=== PATIENT | male | born 1985 | race American Indian/Alaskan Native ===

== ENCOUNTER 2016-06-07 09:19 | Inpatient (IN) | payer MEDICAID ==
[2016-06-07] MEDS ORDERED: MORPHINE IV ONE (10:48)
--- NOTE | 2016-06-07 10:54 | Emergency Department Report ---
HPI - General Chief Complaint: Extremity Problem,Nontraumatic Time Seen by Provider: 06/07/16 10:13 - HPI HPI: 30-year-old Afro-I[place]ic male presents emergency department from home by EMS with complaint of increased swelling and pain to the right lower extremity where he has lymphedema. This is a chronic issue for the patient since he had multiple traumas and surgeries on that leg years ago. He also has a past medical history of borderline diabetes, hypertension. No recent travel or sick contacts at home. He denies any history of ND CVA, PE/DVT. He has not taken anything for symptoms prior to presentation. His primary care doctor is a Dr. Baron. Denies any fever, nausea, vomiting, chest pain, shortness of breath. ED Past Medical Hx - Past Medical History Previous Medical History?: Yes Hx Hypertension: Yes Hx CVA: No Hx Heart Attack/AMI: No Hx Congestive Heart Failure: No Hx Diabetes: Yes Hx Deep Vein Thrombosis: No Hx Pulmonary Embolism: No Hx GERD: No Hx Liver Disease: No Hx Renal Disease: No Hx Sickle Cell Disease: No Hx Arthritis: No Hx Headaches / Migraines: No Hx Seizures: No Hx Kidney Stones: No Hx Psychiatric Treatment: No Hx Asthma: No Hx COPD: No Hx Tuberculosis: No Hx Dementia: No Hx HIV: No Additional medical history: Heart murmur. LYMPHEDEMA. OBESITY - Surgical History Past Surgical History?: Yes Hx Coronary Stent: No Hx Open Heart Surgery: No Hx Internal Defibrillator: No Hx Cholecystectomy: No Hx Appendectomy: No Hx Breast Surgery: No Additional Surgical History: RIGHT LEG SURGERY - Social History Smoking Status: Current Every Day Smoker Substance Use Type: None - Medications Home Medications: Home Medications Medication Instructions Recorded Confirmed Last Taken Type ALPRAZolam [Xanax TAB] 1 mg PO BID PRN 05/25/15 06/07/16 05/15/16 History ED Review of Systems ROS: Stated complaint: R LEG PAIN/SWELLING Other details as noted in HPI Comment: All other systems reviewed and negative Constitutional: denies: chills, fever Eyes: denies: eye pain, eye discharge, vision change ENT: denies: ear pain, throat pain Respiratory: denies: cough, shortness of breath, wheezing Cardiovascular: edema. denies: chest pain, palpitations Gastrointestinal: denies: abdominal pain, nausea, diarrhea Genitourinary: denies: urgency, dysuria Musculoskeletal: arthralgia, myalgia, other (lymphedema) Skin: denies: rash, lesions Neurological: denies: headache, weakness, paresthesias Physical Exam - Physical Exam Vital Signs: Vital Signs 06/07/16 06/07/16 09:34 10:17 Temperature 98.0 F Pulse Rate 85 Respiratory 20 20 Rate Blood Pressure 149/79 [Left] O2 Sat by Pulse 98 Oximetry Physical Exam: GENERAL: The patient is well-developed well-nourished. HEENT: Normocephalic. Atraumatic. Extraocular motions are intact. Patient has moist mucous membranes. Pupils equal reactive to light bilaterally. NECK: Supple. Trachea is midline. CHEST/LUNGS: Clear to auscultation. There is no respiratory distress noted. HEART/CARDIOVASCULAR: Regular. There is no tachycardia. There is no gallop rub or murmur. ABDOMEN: Abdomen is soft, nontender. Patient has normal bowel sounds. There is no abdominal distention. SKIN: Skin is warm and dry. There is significant/severe right lower extremity lymphedema but there is also erythema and warmth to the middle half starting mid thigh and going to mid tib-fib. No bleeding, weeping or drainage. Concerning for cellulitis. NEURO: The patient is awake, alert, and oriented. The patient is cooperative. The patient has no focal neurologic deficits. The patient has normal speech. MUSCULOSKELETAL: Patient has tenderness to palpation along the entire right lower extremity. There is significant to severe lymphedema. There is no evidence of acute injury. ED Course Vital Signs 06/07/16 06/07/16 09:34 10:17 Temperature 98.0 F Pulse Rate 85 Respiratory 20 20 Rate Blood Pressure 149/79 [Left] O2 Sat by Pulse 98 Oximetry ED Medical Decision Making - Lab Data Result diagrams: 06/07/16 13:35 06/07/16 11:07 - Radiology Data Radiology results: report reviewed Right lower extremity venous Doppler is severely limited secondary to his lymphedema but otherwise does not show any acute DVT. - Medical Decision Making 30-year-old male presents with a few days of severe right lower extremity pain and worsening of his chronic lymphedema. Patient does have severe lymphedema to the right lower extremity but there is also area of erythema and warmth concerning for cellulitis. A venous Doppler was done to rule out a DVT and while it was a limited examination there was no obvious acute DVT found. Patient has a leukocytosis of about 16,000. No current fever. Patient says he starting to feel febrile-like symptoms. Blood cultures were obtained and the patient was started on vancomycin. Patient be admitted to hospital for cellulitis and accepted for admission by the hospitalist, Dr. Nice. - Differential Diagnosis cellulitis, venous stasis, lymphangitis, DVT Critical Care Time: No Critical care attestation.: If time is entered above; I have spent that time in minutes in the direct care of this critically ill patient, excluding procedure time. ED Disposition Clinical Impression: Lymphedema, Hyperglycemia Cellulitis Qualifiers: Site of cellulitis: extremity Site of cellulitis of extremity: lower extremity Laterality: right Qualified Code(s): L03.115 - Cellulitis of right lower limb Disposition: OP ADMITTED IP TO THIS HOSP Is pt being admited?: Yes Condition: Stable Time of Disposition: 19:07
[2016-06-07 11:32] LABS: Anion Gap 25 mmol/L; Blood Urea Nitrogen 5 mg/dL (9-20); Calcium 8.8 mg/dL (8.4-10.2); Carbon Dioxide 19 mmol/L (22-30); Chloride 94.1 mmol/L (98-107); Glucose 244 mg/dL (75-100); Potassium 3.8 mmol/L (3.6-5.0); Sodium 134 mmol/L (137-145)
[2016-06-07] MEDS ORDERED: DILAUDID IV ONE ×2 (12:39→15:36)
[2016-06-07] MEDS ORDERED: VANCOMYCIN/NS 1 GM/250 ML 1 GM/250 ML BAG IV ONE (13:20)
[2016-06-07 13:23] LABS: Hematocrit TNR % (35.5-45.6); Hemoglobin TNR gm/dl (11.8-15.2); Mean Corpuscular Volume TNR fl (84-94); Red Blood Count TNR M/mm3 (3.65-5.03)
[2016-06-07 13:24] LABS: Mean Corpuscular HGB Conc TNR % (32-34); Mean Corpuscular Hemoglobin TNR pg (28-32); Platelet Count TNR K/mm3 (140-440); Red Cell Distribution Width TNR % (13.2-15.2)
[2016-06-07 13:25] LABS: White Blood Count TNR K/mm3 (4.5-11.0)
[2016-06-07 13:27] LABS: Mean Platelet Volume TNR fl (6-12)
[2016-06-07 13:28] LABS: Basophils % (Auto) TNR % (0.0-1.8); Eosinophils % (Auto) TNR % (0.0-4.3)
[2016-06-07 13:32] LABS: Total Cells Counted Percent TNR
[2016-06-07 13:33] LABS: Basophils % (Manual) TNR % (0.0-1.8); Blastocytes % (Manual) TNR %; Chediak-Higashi Inclusions TNR; Eosinophils % (Manual) TNR % (0.0-4.3); Hypersegmented Polys TNR
[2016-06-07 13:34] LABS: Anisocytosis TNR; Basophilic Stippling TNR; EDTA Platelet Clumps TNR; Giant Platelets TNR; Hypersegmented Neutrophils TNR; Hypochromasia TNR; Large Platelets TNR; Microcytosis TNR; Nucleated Red Blood Cells TNR % (0.0-0.9); Platelet Clumps TNR; Platelet Estimate TNR; Platelet Morphology TNR; Poikilocytosis TNR; Polychromasia TNR; RBC Morphology TNR; Smudge Cells TNR
[2016-06-07 13:35] LABS: Cabot Rings TNR; Howell-Jolly Bodies TNR; Macrocytosis TNR; Schistocytes TNR
[2016-06-07 13:36] LABS: Alder-Reilly Anomaly TNR; Auer Rods TNR; Burr Cells TNR; Crenated RBC TNR; Dohle Bodies TNR; Rouleaux TNR; Toxic Granulation TNR; Toxic Vacuolation TNR
[2016-06-07 13:39] LABS: Diff Status Complete
[2016-06-07 14:04] LABS: Basophils % (Auto) 0.3 % (0.0-1.8); Eosinophils % (Auto) 0.1 % (0.0-4.3); Hematocrit 34.2 % (35.5-45.6); Hemoglobin 11.3 gm/dl (11.8-15.2); Mean Corpuscular HGB Conc 33 % (32-34); Mean Corpuscular Hemoglobin 32 pg (28-32); Mean Corpuscular Volume 96 fl (84-94); Platelet Count 323 K/mm3 (140-440); Red Blood Count 3.57 M/mm3 (3.65-5.03); White Blood Count 15.6 K/mm3 (4.5-11.0)
--- NOTE | 2016-06-07 15:27 | Admit Criteria Form ---
Admission Criteria Documentation: CELLULITIS Clinical Indications for Admission to Inpatient Care (Place 'X' for any and all applicable criteria): Admission is indicated for ANY ONE of the following(1)(2)(3)(4)(5): [X ]I. Limb-threatening infection [ ]II. High-risk comorbid condition as indicated by ANY ONE of the following: [ ]a) Uncontrolled diabetes (eg, HbA1c greater than 10% (0.1)) [ ]b) Cirrhosis [ ]c) Neutropenia [ ]d) Asplenia [ ]e) Immunosuppression [ ]f) Symptomatic heart failure [ ]III. Failure of outpatient therapy as indicated by ALL of the following: [ ]a) Progression or no improvement after adequate trial (minimum of 48 hours, with longer period for stable lower extremity infection) [ ]b) Adequate antibiotic regimen as indicated by use of ANY ONE of the following: [ ]i) First-generation cephalosporin (e.g., cephalexin) [ ]ii) Antistaphylococcal penicillin (e.g., dicloxacillin) [ ]iii) Penicillin-allergic patient regimen (clindamycin, extended-spectrum fluoroquinolone, or doxycycline) [ ]iv) Resistant organism (eg, methicillin-resistant Staphylococcus aureus) regimen (6) [ ]c) Outpatient intravenous therapy regimen is not appropriate due to ANY ONE of the following. (7)(8)(9)(10): [ ]i) It was tried and was not successful (eg, progression of infection). [ ]ii) It is not available or cannot be arranged in a clinically appropriate time frame (e.g., the next day). [ ]iii) Clinical presentation (eg, acuity of infection, rapidity of progression, confirmed or suspected bacteremia) is judged to require ALL of the following: [ ]1) Immediate initiation of intravenous therapy ( eg, cannot wait for next day) [ ]2) Intensity of patient monitoring and observation (eg, vital sign measurement, checks for infection progression) that cannot be provided at other than inpatient level of care [ ]IV. Mental status changes [ ]V. Bacteremia [ ]. Hemodynamic instability [ ]VII. Suspected necrotizing soft tissue infection (e.g., gas in tissue)(11)( 12) [ ]VIII. Orbital infection (13)(14) [ ]IX. Associated surgical procedure (e.g., abscess drainage, debridement) not amenable to outpatient, emergency department, or observation care [ ]X. Cutaneous gangrene [ ]XI. High fever (temperature greater than 39.5 degrees C (103.1 degrees F) (oral)) not responsive to outpatient, emergency department, or observation care therapy [X ]XIII. Inpatient admission required rather than observation care (Also use Cellulitis: Observation Care as appropriate) because of ANY ONE of the following : [ ]a) Periorbital or perineal infection that is severe or worsening [ ]b) Severe pain requiring acute inpatient management [ ]c) IV fluid to replace significant ongoing (e.g., for over 24 hours) losses (greater than 3L/m2 per day) [ ]d) Compartment syndrome monitoring (17) [ ]e) Strict or protective (eg, laminar flow) isolation [ ]f) Urgent debridement or skin grafting [ ]g) Bone or joint debridement [ ]h) Immediate inpatient surgery [ X]i) Other condition, treatment or monitoring requiring inpatient admission Extended stay beyond goal length of stay may be needed for (1)(18): [ ]a) Necrotizing soft tissue infection or fasciitis [ ]b) Gram-negative infection [ ]c) Methicillin-resistant Staphylococcal aureus (MRSA) infection [ ]d) Peripheral venous insufficiency with cellulitis [ ]e) Extensive edema [ ]f) Sepsis or continued Hemodynamic instability [ ]g) Continued high fever or mental status change [ ]h) Bacteremia [ ]i) Active serious comorbid conditions ( eg, heart failure, renal insufficiency) The original [facility] content created by [facility] has been revised. The portions of the content which have been revised are identified through the use of italic text or in bold, and [facility] has neither reviewed nor approved the modified material. All other unmodified content is copyright [facility] [employer] [facility] Please see references footnoted in the original [facility] [employer] edition 2016 Admission Criteria Met: Yes
[2016-06-07] MEDS ORDERED: DULCOLAX PR PRN (16:29)
[2016-06-07] MEDS ORDERED: TYLENOL PO PRN (16:29)
[2016-06-07] MEDS ORDERED: DUONEB 0.5 MG-3 MG/3 ML SOLN IH PRN (16:29)
[2016-06-07] MEDS ORDERED: ZOFRAN IV PRN (16:29)
[2016-06-07] MEDS ORDERED: MILK OF MAGNESIA PO PRN (16:29)
--- NOTE | 2016-06-07 16:35 | History and Physical Report ---
History of Present Illness Chief complaint: My leg hurts History of present illness: 30 YO Male with HTN, Nicotine Dependence, DM, Lymphedema, Metabolic Syndrome presents to ED for evaluation. Pt states that he has experienced pain and swelling to his right leg for the past 3 weeks, with worsening symptoms over the past 3 days. Pt denies fever, chills, CP, Palpitations, NVD, Prolonged travel/immobility, indivudual/family history of DVT/PE, syncope, trauma, shortness of breath, recent ill contacts, or productive cough. Past History Past Medical History: diabetes, hypertension Past Surgical History: Other (right Leg surgery) Social history: single, smoking. denies: alcohol abuse, prescription drug abuse Family history: diabetes, hypertension Medications and Allergies Allergies Allergy/AdvReac Type Severity Reaction Status Date / Time acetaminophen Allergy Rash Verified 05/26/15 16:02 [From Darvocet-N] ketorolac tromethamine Allergy Rash Verified 05/26/15 16:02 [From Toradol] propoxyphene napsylate Allergy Rash Verified 05/26/15 16:02 [From Darvocet-N] tomato Allergy Itching Verified 05/26/15 16:02 tramadol Allergy Itching Verified 05/26/15 16:02 Home Medications Medication Instructions Recorded Confirmed Last Taken Type ALPRAZolam [Xanax TAB] 1 mg PO BID PRN 05/25/15 06/07/16 05/15/16 History Active Meds: Active Medications Acetaminophen (Tylenol) 650 mg PO Q4H PRN PRN Reason: Pain MILD(1-3)/Fever >100.5/PACKER Albuterol/Ipratropium (Duoneb 0.5 Mg-3 Mg/3 Ml Soln) 1 ampul IH Q6HRT PRN PRN Reason: Wheezing Alprazolam (Xanax) 1 mg PO BID PRN PRN Reason: Anxiety Bisacodyl (Dulcolax) 10 mg ME QDAY PRN PRN Reason: Constipation unrelieved by MOM Enoxaparin Sodium (Lovenox) 40 mg SUB-Q QDAY KELLI Magnesium Hydroxide (Milk Of Magnesia) 30 ml PO Q4H PRN PRN Reason: Constipation Ondansetron HCl (Zofran) 4 mg IV Q8H PRN PRN Reason: N/V unrelieved by Reglan Vancomycin HCl (Vancomycin Pharmacy To Dose) 1 each IV PKCONSULT KELLI PRN Reason: Protocol Review of Systems All systems: negative Musculoskeletal: other (leg pain, redness) Exam - Constitutional Vitals: Temp Pulse Resp BP Pulse Ox 98.0 F 85 20 132/62 96 06/07/16 09:34 06/07/16 09:34 06/07/16 10:17 06/07/16 15:51 06/07/16 15:51 General appearance: Present: mild distress, well-nourished - EENT Eyes: Present: PERRL ENT: hearing intact, clear oral mucosa - Neck Neck: Present: supple, normal ROM - Respiratory Respiratory effort: normal Respiratory: bilateral: CTA - Cardiovascular Heart Sounds: Present: S1 & S2. Absent: rub, click - Extremities Extremities: pulses symmetrical, No edema Extremity abnormal: edema, deformity, other (RLE chronic lymphedema, with cellulitis) Peripheral Pulses: within normal limits - Abdominal General gastrointestinal: Present: soft, non-tender, non-distended, normal bowel sounds Male genitourinary: Present: normal - Integumentary Integumentary: Present: clear, warm, dry - Musculoskeletal Musculoskeletal: generalized weakness - Psychiatric Psychiatric: appropriate mood/affect, intact judgment & insight - Neurologic Neurologic: CNII-XII intact, moves all extremities Results - Labs CBC & Chem 7: 06/07/16 13:35 06/07/16 11:07 Labs: Abnormal lab results 06/07/16 06/07/16 Range/Units 11:07 13:35 WBC 15.6 H (4.5-11.0) K/mm3 RBC 3.57 L (3.65-5.03) M/mm3 Hgb 11.3 L (11.8-15.2) gm/dl Hct 34.2 L (35.5-45.6) % MCV 96 H (84-94) fl RDW 13.0 L (13.2-15.2) % Lymph % (Auto) 10.0 L (13.4-35.0) % [place] % (Auto) 7.9 H (0.0-7.3) % [place] # 1.2 H (0.0-0.8) K/mm3 Seg Neutrophils % 81.7 H (40.0-70.0) % Seg Neutrophils # 12.8 H (1.8-7.7) K/mm3 Sodium 134 L (137-145) mmol/L Chloride 94.1 L (98-107) mmol/L Carbon Dioxide 19 L (22-30) mmol/L BUN 5 L (9-20) mg/dL Creatinine 0.4 L (0.8-1.5) mg/dL Glucose 244 H (75-100) mg/dL Assessment and Plan - Patient Problems (1) Cellulitis Current Visit: Yes Status: Acute Qualifiers: Site of cellulitis: S Site of cellulitis of extremity: S Site of cellulitis of trunk: S Laterality: L Plan to address problem: IV abx, ivf, supportive care, pain control (2) Lymphedema Current Visit: Yes Status: Acute Plan to address problem: chronic, supportive care, elevate RLE, PT consulted, home health at discharge (3) SIRS (systemic inflammatory response syndrome) Current Visit: Yes Status: Acute Plan to address problem: Iv abx, ivf, supportive care. (4) Metabolic acidosis Current Visit: Yes Status: Acute Plan to address problem: Treat sirs, supportive care, (5) DVT prophylaxis Current Visit: Yes Status: Acute
[2016-06-07] MEDS ORDERED: PROVENTIL IH PRN (16:37)
[2016-06-07] MEDS ORDERED: VANCOMYCIN PHARMACY TO DOSE IV SCH (17:00)
[2016-06-07] MEDS ORDERED: VANCOMYCIN 2,000 MG in NACL 0.9% 500 ML 500 ML IV ONE (17:30)
[2016-06-07 19:25] LABS: Bacteria,Urine 1+ /HPF (Negative); Bilirubin,Urine NEG (Negative); Blood,Urine NEG (Negative); Ketones,Urine 80 mg/dL (Negative); Leukocyte Esterase,Urine NEG (Negative); Mucus,Urine FEW /HPF; Nitrite,Urine NEG (Negative); Protein,Urine <15 mg/dL mg/dL (Negative)
[2016-06-07] MEDS ORDERED: PERCOCET 5/325 PO ONE (20:59)
[2016-06-07] MEDS: XANAX PO PRN (21:06)
[2016-06-07] MEDS: VANCOMYCIN 2,000 MG in NACL 0.9% 500 ML 500 ML IV SCH (21:12)
[2016-06-08] MEDS: VANCOMYCIN 2,000 MG in NACL 0.9% 500 ML 500 ML IV SCH ×3 (04:15→20:53)
[2016-06-08] MEDS: PERCOCET 5/325 PO PRN ×3 (08:42→19:23)
--- NOTE | 2016-06-08 10:18 | Progress Note ---
Assessment and Plan Assessment and plan: Sepsis. Present on admission. Patient with significant leukocytosis and diagnosis of cellulitis. Check lactic acid levels. Continue IV antibiotics and follow blood cultures. Cellulitis. Continue antibiotics. Lymphedema. Continue supportive care and elevation of right lower extremity. PT consultation pending. Metabolic acidosis. Etiology may be secondary to lactic acidosis. Follow-up BMP and check lactic acid levels. DVT prophylaxis. Lovenox daily. History Interval history: Patient complains of right lower extremity pain not relieved by Tylenol. No other issues. No chest pain or shortness of breath. Hospitalist Physical - Constitutional Vitals: Temp Pulse Resp BP Pulse Ox 99.2 F 82 20 124/62 97 06/08/16 07:05 06/08/16 07:05 06/08/16 08:42 06/08/16 07:05 06/08/16 09:13 General appearance: Present: no acute distress, well-nourished - EENT Eyes: Present: PERRL, EOM intact ENT: hearing intact, clear oral mucosa, dentition normal - Neck Neck: Present: supple, normal ROM - Respiratory Respiratory effort: normal Respiratory: bilateral: CTA - Cardiovascular Rhythm: regular Heart Sounds: Present: S1 & S2. Absent: gallop, rub - Extremities Extremities: no ischemia, Full ROM, abnormal (lymphedema) Extremity abnormal: edema (RLE), tenderness (RLE) - Abdominal General gastrointestinal: soft, non-tender, non-distended, normal bowel sounds - Integumentary Integumentary: Present: clear, warm, dry - Neurologic Neurologic: CNII-XII intact, moves all extremities Results - Labs CBC & Chem 7: 06/07/16 13:35 06/07/16 11:07 Labs: Laboratory Last Values WBC 15.6 K/mm3 (4.5-11.0) H 06/07/16 13:35 RBC 3.57 M/mm3 (3.65-5.03) L 06/07/16 13:35 Hgb 11.3 gm/dl (11.8-15.2) L 06/07/16 13:35 Hct 34.2 % (35.5-45.6) L 06/07/16 13:35 MCV 96 fl (84-94) H 06/07/16 13:35 MCH 32 pg (28-32) 06/07/16 13:35 MCHC 33 % (32-34) 06/07/16 13:35 RDW 13.0 % (13.2-15.2) L 06/07/16 13:35 Plt Count 323 K/mm3 (140-440) 06/07/16 13:35 Lymph % (Auto) 10.0 % (13.4-35.0) L 06/07/16 13:35 [place] % (Auto) 7.9 % (0.0-7.3) H 06/07/16 13:35 Eos % (Auto) 0.1 % (0.0-4.3) 06/07/16 13:35 Baso % (Auto) 0.3 % (0.0-1.8) 06/07/16 13:35 Lymph # 1.6 K/mm3 (1.2-5.4) 06/07/16 13:35 [place] # 1.2 K/mm3 (0.0-0.8) H 06/07/16 13:35 Eos # 0.0 K/mm3 (0.0-0.4) 06/07/16 13:35 Baso # 0.0 K/mm3 (0.0-0.1) 06/07/16 13:35 Add Manual Diff Complete 06/07/16 11:07 Total Counted TNR 06/07/16 11:07 Seg Neutrophils % 81.7 % (40.0-70.0) H 06/07/16 13:35 Seg Neuts % (Manual) TNR 06/07/16 11:07 Band Neutrophils % TNR 06/07/16 11:07 Lymphocytes % (Manual) TNR 06/07/16 11:07 Reactive Lymphs % (Man) TNR 06/07/16 11:07 Monocytes % (Manual) TNR 06/07/16 11:07 Eosinophils % (Manual) TNR 06/07/16 11:07 Basophils % (Manual) TNR 06/07/16 11:07 Metamyelocytes % TNR 06/07/16 11:07 Myelocytes % TNR 06/07/16 11:07 Promyelocytes % TNR 06/07/16 11:07 Blast Cells % TNR 06/07/16 11:07 Nucleated RBC % TNR 06/07/16 11:07 Seg Neutrophils # 12.8 K/mm3 (1.8-7.7) H 06/07/16 13:35 Seg Neutrophils # Man TNR 06/07/16 11:07 Band Neutrophils # TNR 06/07/16 11:07 Lymphocytes # (Manual) TNR 06/07/16 11:07 Abs React Lymphs (Man) TNR 06/07/16 11:07 Monocytes # (Manual) TNR 06/07/16 11:07 Eosinophils # (Manual) TNR 06/07/16 11:07 Basophils # (Manual) TNR 06/07/16 11:07 Metamyelocytes # TNR 06/07/16 11:07 Myelocytes # TNR 06/07/16 11:07 Promyelocytes # TNR 06/07/16 11:07 Blast Cells # TNR 06/07/16 11:07 WBC Morphology TNR 06/07/16 11:07 Hypersegmented Neuts TNR 06/07/16 11:07 Hyposegmented Neuts TNR 06/07/16 11:07 Hypogranular Neuts TNR 06/07/16 11:07 Hypersegmented Polys TNR 06/07/16 11:07 Smudge Cells TNR 06/07/16 11:07 Toxic Granulation TNR 06/07/16 11:07 Toxic Vacuolation TNR 06/07/16 11:07 Dohle Bodies TNR 06/07/16 11:07 Pelger-Huet Anomaly TNR 06/07/16 11:07 Maryann Rods TNR 06/07/16 11:07 Platelet Estimate TNR 06/07/16 11:07 Clumped Platelets TNR 06/07/16 11:07 Plt Clumps, EDTA TNR 06/07/16 11:07 Large Platelets TNR 06/07/16 11:07 Giant Platelets TNR 06/07/16 11:07 Platelet Satelliting TNR 06/07/16 11:07 Plt Morphology Comment TNR 06/07/16 11:07 RBC Morphology TNR 06/07/16 11:07 Dimorphic RBCs TNR 06/07/16 11:07 Polychromasia TNR 06/07/16 11:07 Hypochromasia TNR 06/07/16 11:07 Poikilocytosis TNR 06/07/16 11:07 Basophilic Stippling TNR 06/07/16 11:07 Anisocytosis TNR 06/07/16 11:07 Microcytosis TNR 06/07/16 11:07 Macrocytosis TNR 06/07/16 11:07 Spherocytes Not Reportable 06/07/16 11:07 Pappenheimer Bodies Not Reportable 06/07/16 11:07 Sickle Cells Not Reportable 06/07/16 11:07 Target Cells Not Reportable 06/07/16 11:07 Tear Drop Cells Not Reportable 06/07/16 11:07 Ovalocytes Not Reportable 06/07/16 11:07 Helmet Cells Not Reportable 06/07/16 11:07 [place] Bodies TNR 06/07/16 11:07 [place] Rings TNR 06/07/16 11:07 Quimby Cells TNR 06/07/16 11:07 Bite Cells TNR 06/07/16 11:07 Crenated Cell TNR 06/07/16 11:07 Elliptocytes Not Reportable 06/07/16 11:07 Acanthocytes (Spur) Not Reportable 06/07/16 11:07 Rouleaux TNR 06/07/16 11:07 Hemoglobin C Crystals TNR 06/07/16 11:07 Schistocytes TNR 06/07/16 11:07 Malaria parasites TNR 06/07/16 11:07 [place] Bodies TNR 06/07/16 11:07 Hem Pathologist Commnt No 06/07/16 11:07 Sodium 134 mmol/L (137-145) L 06/07/16 11:07 Potassium 3.8 mmol/L (3.6-5.0) 06/07/16 11:07 Chloride 94.1 mmol/L (98-107) L 06/07/16 11:07 Carbon Dioxide 19 mmol/L (22-30) L 06/07/16 11:07 Anion Gap 25 mmol/L 06/07/16 11:07 BUN 5 mg/dL (9-20) L 06/07/16 11:07 Creatinine 0.4 mg/dL (0.8-1.5) L 06/07/16 11:07 Estimated GFR > 60 ml/min 06/07/16 11:07 BUN/Creatinine Ratio 12.50 % 06/07/16 11:07 Glucose 244 mg/dL (75-100) H 06/07/16 11:07 Calcium 8.8 mg/dL (8.4-10.2) 06/07/16 11:07 Urine Color Yellow (Yellow) 06/07/16 18:37 Urine Turbidity Clear (Clear) 06/07/16 18:37 Urine pH 6.0 (5.0-7.0) 06/07/16 18:37 Ur Specific Boss 1.030 (1.003-1.030) 06/07/16 18:37 Urine Protein <15 mg/dl mg/dL (Negative) 06/07/16 18:37 Urine Glucose (UA) >=500 mg/dL (Negative) 06/07/16 18:37 Urine Ketones 80 mg/dL (Negative) 06/07/16 18:37 Urine Blood Neg (Negative) 06/07/16 18:37 Urine Nitrite Neg (Negative) 06/07/16 18:37 Urine Bilirubin Neg (Negative) 06/07/16 18:37 Urine Urobilinogen 2.0 mg/dL (<2.0) 06/07/16 18:37 Ur Leukocyte Esterase Neg (Negative) 06/07/16 18:37 Urine WBC (Auto) 1.0 /HPF (0.0-6.0) 06/07/16 18:37 Urine RBC (Auto) 2.0 /HPF (0.0-6.0) 06/07/16 18:37 U Epithel Cells (Auto) 1.0 /HPF (0-13.0) 06/07/16 18:37 Urine Bacteria (Auto) 1+ /HPF (Negative) 06/07/16 18:37 Urine Mucus Few /HPF 06/07/16 18:37
[2016-06-08] MEDS: NACL 0.9% 1000 ML 1,000 ML IV SCH (11:08)
[2016-06-08] MEDS: XANAX PO PRN ×2 (11:09→19:34)
[2016-06-08] MEDS: LOVENOX SUB-Q SCH (11:10)
[2016-06-08] MEDS: HABITROL TD SCH (14:19)
[2016-06-08] MEDS ORDERED: MORPHINE IV ONE (21:27)
[2016-06-09] MEDS: PERCOCET 5/325 PO PRN ×3 (04:33→20:31)
[2016-06-09] MEDS: NACL 0.9% 1000 ML 1,000 ML IV SCH ×2 (04:34→18:15)
[2016-06-09] MEDS: VANCOMYCIN 2,000 MG in NACL 0.9% 500 ML 500 ML IV SCH ×3 (04:36→20:25)
[2016-06-09 04:39] LABS: Basophils % (Auto) 0.3 % (0.0-1.8); Eosinophils % (Auto) 0.1 % (0.0-4.3); Hematocrit 33.9 % (35.5-45.6); Hemoglobin 11.3 gm/dl (11.8-15.2); Mean Corpuscular HGB Conc 33 % (32-34); Mean Corpuscular Hemoglobin 32 pg (28-32); Mean Corpuscular Volume 95 fl (84-94); Platelet Count 346 K/mm3 (140-440); Red Blood Count 3.55 M/mm3 (3.65-5.03); Red Cell Distribution Width 13.2 % (13.2-15.2); White Blood Count 13.4 K/mm3 (4.5-11.0)
[2016-06-09 04:59] LABS: Anion Gap 18 mmol/L; Blood Urea Nitrogen 4 mg/dL (9-20); Calcium 8.6 mg/dL (8.4-10.2); Carbon Dioxide 25 mmol/L (22-30); Chloride 96.3 mmol/L (98-107); Glucose 292 mg/dL (75-100); Potassium 3.7 mmol/L (3.6-5.0); Sodium 136 mmol/L (137-145)
[2016-06-09] MEDS: LOVENOX SUB-Q SCH (09:20)
[2016-06-09] MEDS: HABITROL TD SCH (09:20)
[2016-06-09] MEDS: XANAX PO PRN ×2 (12:00→22:07)
--- NOTE | 2016-06-09 13:39 | Progress Note ---
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 He was diagnosed with right leg cellulitis with sepsis -Right leg cellulitis: Continue IV antibiotics -Right leg lymphedema: Consult wound care, patient asked for more IV narcotics which helped last night. -Sepsis due to right leg cellulitis present on admission: Continue antibiotics -Uncontrolled diabetes mellitus with hyperglycemia: add Sliding scale insulin -Disposition: Anticipate discharge tomorrow History Interval history: Patient seen and examined. Follow up on right leg pain which is severe. Overnight uneventful. No cp, sob, n/v or severe headaches. Imaging, old records , testing, labs, nursing notes reviewed. Plan discussed with patient. Hospitalist Physical - Physical exam Narrative exam: GEN: WDWN, NAD, AWAKE, ALERT, ORIENTATED 3 HEENT: NCAT, PERRL, EOMI, OP CLEAR NECK: SUPPLE, NO THYROMEGALY, NO JVD, NO LAD CVS: RRR, NORMAL S1S2 LUNGS/CHEST: CTA B, NORMAL CHEST EXPANSION B, GOOD AIR ENTRY B ABD: SOFT NTND, GBS, NO REBOUND OR GUARDING EXT/SKIN: Right leg lymphedema with warm tenderness MSK: FROM X 4 EXTREMITIES NEURO: CN 2-12 GROSSLY INTACT, NO new FOCAL DEFICITS PSY: CALM - Constitutional Vitals: Temp Pulse Resp BP Pulse Ox 99.1 F 75 20 132/73 92 06/09/16 07:20 06/09/16 07:20 06/09/16 11:04 06/09/16 07:20 06/09/16 07:20 General appearance: Present: no acute distress, well-nourished Results - Labs CBC & Chem 7: 06/09/16 04:14 06/09/16 04:14 Labs: Laboratory Last Values WBC 13.4 K/mm3 (4.5-11.0) H 06/09/16 04:14 RBC 3.55 M/mm3 (3.65-5.03) L 06/09/16 04:14 Hgb 11.3 gm/dl (11.8-15.2) L 06/09/16 04:14 Hct 33.9 % (35.5-45.6) L 06/09/16 04:14 MCV 95 fl (84-94) H 06/09/16 04:14 MCH 32 pg (28-32) 06/09/16 04:14 MCHC 33 % (32-34) 06/09/16 04:14 RDW 13.2 % (13.2-15.2) 06/09/16 04:14 Plt Count 346 K/mm3 (140-440) 06/09/16 04:14 Lymph % (Auto) 8.0 % (13.4-35.0) L 06/09/16 04:14 [place] % (Auto) 7.9 % (0.0-7.3) H 06/09/16 04:14 Eos % (Auto) 0.1 % (0.0-4.3) 06/09/16 04:14 Baso % (Auto) 0.3 % (0.0-1.8) 06/09/16 04:14 Lymph # 1.1 K/mm3 (1.2-5.4) L 06/09/16 04:14 [place] # 1.1 K/mm3 (0.0-0.8) H 06/09/16 04:14 Eos # 0.0 K/mm3 (0.0-0.4) 06/09/16 04:14 Baso # 0.0 K/mm3 (0.0-0.1) 06/09/16 04:14 Add Manual Diff Complete 06/07/16 11:07 Total Counted TNR 06/07/16 11:07 Seg Neutrophils % 83.7 % (40.0-70.0) H 06/09/16 04:14 Seg Neuts % (Manual) TNR 06/07/16 11:07 Band Neutrophils % TNR 06/07/16 11:07 Lymphocytes % (Manual) TNR 06/07/16 11:07 Reactive Lymphs % (Man) TNR 06/07/16 11:07 Monocytes % (Manual) TNR 06/07/16 11:07 Eosinophils % (Manual) TNR 06/07/16 11:07 Basophils % (Manual) TNR 06/07/16 11:07 Metamyelocytes % TNR 06/07/16 11:07 Myelocytes % TNR 06/07/16 11:07 Promyelocytes % TNR 06/07/16 11:07 Blast Cells % TNR 06/07/16 11:07 Nucleated RBC % TNR 06/07/16 11:07 Seg Neutrophils # 11.2 K/mm3 (1.8-7.7) H 06/09/16 04:14 Seg Neutrophils # Man TNR 06/07/16 11:07 Band Neutrophils # TNR 06/07/16 11:07 Lymphocytes # (Manual) TNR 06/07/16 11:07 Abs React Lymphs (Man) TNR 06/07/16 11:07 Monocytes # (Manual) TNR 06/07/16 11:07 Eosinophils # (Manual) TNR 06/07/16 11:07 Basophils # (Manual) TNR 06/07/16 11:07 Metamyelocytes # TNR 06/07/16 11:07 Myelocytes # TNR 06/07/16 11:07 Promyelocytes # TNR 06/07/16 11:07 Blast Cells # TNR 06/07/16 11:07 WBC Morphology TNR 06/07/16 11:07 Hypersegmented Neuts TNR 06/07/16 11:07 Hyposegmented Neuts TNR 06/07/16 11:07 Hypogranular Neuts TNR 06/07/16 11:07 Hypersegmented Polys TNR 06/07/16 11:07 Smudge Cells TNR 06/07/16 11:07 Toxic Granulation TNR 06/07/16 11:07 Toxic Vacuolation TNR 06/07/16 11:07 Dohle Bodies TNR 06/07/16 11:07 Pelger-Huet Anomaly TNR 06/07/16 11:07 Maryann Rods TNR 06/07/16 11:07 Platelet Estimate TNR 06/07/16 11:07 Clumped Platelets TNR 06/07/16 11:07 Plt Clumps, EDTA TNR 06/07/16 11:07 Large Platelets TNR 06/07/16 11:07 Giant Platelets TNR 06/07/16 11:07 Platelet Satelliting TNR 06/07/16 11:07 Plt Morphology Comment TNR 06/07/16 11:07 RBC Morphology TNR 06/07/16 11:07 Dimorphic RBCs TNR 06/07/16 11:07 Polychromasia TNR 06/07/16 11:07 Hypochromasia TNR 06/07/16 11:07 Poikilocytosis TNR 06/07/16 11:07 Basophilic Stippling TNR 06/07/16 11:07 Anisocytosis TNR 06/07/16 11:07 Microcytosis TNR 06/07/16 11:07 Macrocytosis TNR 06/07/16 11:07 Spherocytes Not Reportable 06/07/16 11:07 Pappenheimer Bodies Not Reportable 06/07/16 11:07 Sickle Cells Not Reportable 06/07/16 11:07 Target Cells Not Reportable 06/07/16 11:07 Tear Drop Cells Not Reportable 06/07/16 11:07 Ovalocytes Not Reportable 06/07/16 11:07 Helmet Cells Not Reportable 06/07/16 11:07 [place] Bodies TNR 06/07/16 11:07 [place] Rings TNR 06/07/16 11:07 Zuri Cells TNR 06/07/16 11:07 Bite Cells TNR 06/07/16 11:07 Crenated Cell TNR 06/07/16 11:07 Elliptocytes Not Reportable 06/07/16 11:07 Acanthocytes (Spur) Not Reportable 06/07/16 11:07 Rouleaux TNR 06/07/16 11:07 Hemoglobin C Crystals TNR 06/07/16 11:07 Schistocytes TNR 06/07/16 11:07 Malaria parasites TNR 06/07/16 11:07 Hugo Bodies TNR 06/07/16 11:07 Hem Pathologist Commnt No 06/07/16 11:07 Sodium 136 mmol/L (137-145) L 06/09/16 04:14 Potassium 3.7 mmol/L (3.6-5.0) 06/09/16 04:14 Chloride 96.3 mmol/L (98-107) L 06/09/16 04:14 Carbon Dioxide 25 mmol/L (22-30) 06/09/16 04:14 Anion Gap 18 mmol/L 06/09/16 04:14 BUN 4 mg/dL (9-20) L 06/09/16 04:14 Creatinine 0.5 mg/dL (0.8-1.5) L 06/09/16 04:14 Estimated GFR > 60 ml/min 06/09/16 04:14 BUN/Creatinine Ratio 8.00 % 06/09/16 04:14 Glucose 292 mg/dL (75-100) H 06/09/16 04:14 Lactic Acid 0.8 mmol/L (0.7-2.0) 06/08/16 14:08 Calcium 8.6 mg/dL (8.4-10.2) 06/09/16 04:14 Urine Color Yellow (Yellow) 06/07/16 18:37 Urine Turbidity Clear (Clear) 06/07/16 18:37 Urine pH 6.0 (5.0-7.0) 06/07/16 18:37 Ur Specific [place] 1.030 (1.003-1.030) 06/07/16 18:37 Urine Protein <15 mg/dl mg/dL (Negative) 06/07/16 18:37 Urine Glucose (UA) >=500 mg/dL (Negative) 06/07/16 18:37 Urine Ketones 80 mg/dL (Negative) 06/07/16 18:37 Urine Blood Neg (Negative) 06/07/16 18:37 Urine Nitrite Neg (Negative) 06/07/16 18:37 Urine Bilirubin Neg (Negative) 06/07/16 18:37 Urine Urobilinogen 2.0 mg/dL (<2.0) 06/07/16 18:37 Ur Leukocyte Esterase Neg (Negative) 06/07/16 18:37 Urine WBC (Auto) 1.0 /HPF (0.0-6.0) 06/07/16 18:37 Urine RBC (Auto) 2.0 /HPF (0.0-6.0) 06/07/16 18:37 U Epithel Cells (Auto) 1.0 /HPF (0-13.0) 06/07/16 18:37 Urine Bacteria (Auto) 1+ /HPF (Negative) 06/07/16 18:37 Urine Mucus Few /HPF 06/07/16 18:37 Vancomycin Trough 9.7 ug/mL (5.0-20.0) 06/09/16 10:20
[2016-06-09] MEDS: MORPHINE IV PRN ×2 (14:25→18:15)
[2016-06-09] MEDS ORDERED: D50W (25GM) IV PRN (18:38)
[2016-06-09] MEDS: NOVOLOG SUB-Q SCH (22:07)
[2016-06-10] MEDS: PERCOCET 5/325 PO PRN ×4 (02:19→22:41)
[2016-06-10] MEDS: VANCOMYCIN 2,000 MG in NACL 0.9% 500 ML 500 ML IV SCH ×3 (04:01→20:18)
[2016-06-10] MEDS: MORPHINE IV PRN ×4 (04:02→20:17)
[2016-06-10 06:41] LABS: Hematocrit 33.4 % (35.5-45.6); Hemoglobin 11.3 gm/dl (11.8-15.2); Mean Corpuscular HGB Conc 34 % (32-34); Mean Corpuscular Hemoglobin 32 pg (28-32); Mean Corpuscular Volume 95 fl (84-94); Platelet Count 385 K/mm3 (140-440); Red Blood Count 3.52 M/mm3 (3.65-5.03); Red Cell Distribution Width 13.1 % (13.2-15.2); White Blood Count 13.4 K/mm3 (4.5-11.0)
[2016-06-10 07:00] LABS: Anion Gap 22 mmol/L; Blood Urea Nitrogen 4 mg/dL (9-20); Calcium 8.5 mg/dL (8.4-10.2); Carbon Dioxide 24 mmol/L (22-30); Chloride 95.5 mmol/L (98-107); Glucose 229 mg/dL (75-100); Potassium 3.5 mmol/L (3.6-5.0); Sodium 138 mmol/L (137-145)
[2016-06-10] MEDS: NOVOLOG SUB-Q SCH ×4 (08:21→22:42)
[2016-06-10] MEDS: HABITROL TD SCH ×2 (09:11→09:15)
[2016-06-10] MEDS: LOVENOX SUB-Q SCH ×2 (09:12→09:16)
--- NOTE | 2016-06-10 11:27 | Progress Note ---
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 He was diagnosed with right leg cellulitis with sepsis. Venous leg dopplers negative for DVT. -Right leg cellulitis: Continue IV antibiotics -Right leg lymphedema: Consult wound care, patient asked for more IV narcotics which helped last night. -Sepsis due to right leg cellulitis present on admission: Continue antibiotics -Uncontrolled diabetes mellitus with hyperglycemia: add Sliding scale insulin -Disposition: Anticipate discharge tomorrow==>No, due to severe pains. Pt is crying due to severe right leg pains. He is very rude to myself and staff. I will consult Vascular surgery to see if anything can be done. History Interval history: Patient seen and examined. Follow up on right leg pain which is severe. Overnight uneventful. No cp, sob, n/v or severe headaches. Imaging, old records , testing, labs, nursing notes reviewed. Plan discussed with patient. Hospitalist Physical - Physical exam Narrative exam: GEN: WDWN, NAD, AWAKE, ALERT, ORIENTATED 3 HEENT: NCAT, PERRL, EOMI, OP CLEAR NECK: SUPPLE, NO THYROMEGALY, NO JVD, NO LAD CVS: RRR, NORMAL S1S2 LUNGS/CHEST: CTA B, NORMAL CHEST EXPANSION B, GOOD AIR ENTRY B ABD: SOFT NTND, GBS, NO REBOUND OR GUARDING EXT/SKIN: Right leg lymphedema with warm tenderness MSK: FROM X 4 EXTREMITIES NEURO: CN 2-12 GROSSLY INTACT, NO new FOCAL DEFICITS PSY: CALM - Constitutional Vitals: Temp Pulse Resp BP Pulse Ox 98.8 F 83 24 131/70 97 06/10/16 07:00 06/10/16 07:00 06/10/16 07:00 06/10/16 07:00 06/10/16 07:00 General appearance: Present: no acute distress, well-nourished Results - Labs CBC & Chem 7: 06/10/16 05:22 06/10/16 05:22 Labs: Laboratory Last Values WBC 13.4 K/mm3 (4.5-11.0) H 06/10/16 05:22 RBC 3.52 M/mm3 (3.65-5.03) L 06/10/16 05:22 Hgb 11.3 gm/dl (11.8-15.2) L 06/10/16 05:22 Hct 33.4 % (35.5-45.6) L 06/10/16 05:22 MCV 95 fl (84-94) H 06/10/16 05:22 MCH 32 pg (28-32) 06/10/16 05:22 MCHC 34 % (32-34) 06/10/16 05:22 RDW 13.1 % (13.2-15.2) L 06/10/16 05:22 Plt Count 385 K/mm3 (140-440) 06/10/16 05:22 Lymph % (Auto) 8.0 % (13.4-35.0) L 06/09/16 04:14 [place] % (Auto) 7.9 % (0.0-7.3) H 06/09/16 04:14 Eos % (Auto) 0.1 % (0.0-4.3) 06/09/16 04:14 Baso % (Auto) 0.3 % (0.0-1.8) 06/09/16 04:14 Lymph # 1.1 K/mm3 (1.2-5.4) L 06/09/16 04:14 [place] # 1.1 K/mm3 (0.0-0.8) H 06/09/16 04:14 Eos # 0.0 K/mm3 (0.0-0.4) 06/09/16 04:14 Baso # 0.0 K/mm3 (0.0-0.1) 06/09/16 04:14 Add Manual Diff Complete 06/07/16 11:07 Total Counted TNR 06/07/16 11:07 Seg Neutrophils % 83.7 % (40.0-70.0) H 06/09/16 04:14 Seg Neuts % (Manual) TNR 06/07/16 11:07 Band Neutrophils % TNR 06/07/16 11:07 Lymphocytes % (Manual) TNR 06/07/16 11:07 Reactive Lymphs % (Man) TNR 06/07/16 11:07 Monocytes % (Manual) TNR 06/07/16 11:07 Eosinophils % (Manual) TNR 06/07/16 11:07 Basophils % (Manual) TNR 06/07/16 11:07 Metamyelocytes % TNR 06/07/16 11:07 Myelocytes % TNR 06/07/16 11:07 Promyelocytes % TNR 06/07/16 11:07 Blast Cells % TNR 06/07/16 11:07 Nucleated RBC % TNR 06/07/16 11:07 Seg Neutrophils # 11.2 K/mm3 (1.8-7.7) H 06/09/16 04:14 Seg Neutrophils # Man TNR 06/07/16 11:07 Band Neutrophils # TNR 06/07/16 11:07 Lymphocytes # (Manual) TNR 06/07/16 11:07 Abs React Lymphs (Man) TNR 06/07/16 11:07 Monocytes # (Manual) TNR 06/07/16 11:07 Eosinophils # (Manual) TNR 06/07/16 11:07 Basophils # (Manual) TNR 06/07/16 11:07 Metamyelocytes # TNR 06/07/16 11:07 Myelocytes # TNR 06/07/16 11:07 Promyelocytes # TNR 06/07/16 11:07 Blast Cells # TNR 06/07/16 11:07 WBC Morphology TNR 06/07/16 11:07 Hypersegmented Neuts TNR 06/07/16 11:07 Hyposegmented Neuts TNR 06/07/16 11:07 Hypogranular Neuts TNR 06/07/16 11:07 Hypersegmented Polys TNR 06/07/16 11:07 Smudge Cells TNR 06/07/16 11:07 Toxic Granulation TNR 06/07/16 11:07 Toxic Vacuolation TNR 06/07/16 11:07 Dohle Bodies TNR 06/07/16 11:07 Pelger-Huet Anomaly TNR 06/07/16 11:07 Maryann Rods TNR 06/07/16 11:07 Platelet Estimate TNR 06/07/16 11:07 Clumped Platelets TNR 06/07/16 11:07 Plt Clumps, EDTA TNR 06/07/16 11:07 Large Platelets TNR 06/07/16 11:07 Giant Platelets TNR 06/07/16 11:07 Platelet Satelliting TNR 06/07/16 11:07 Plt Morphology Comment TNR 06/07/16 11:07 RBC Morphology TNR 06/07/16 11:07 Dimorphic RBCs TNR 06/07/16 11:07 Polychromasia TNR 06/07/16 11:07 Hypochromasia TNR 06/07/16 11:07 Poikilocytosis TNR 06/07/16 11:07 Basophilic Stippling TNR 06/07/16 11:07 Anisocytosis TNR 06/07/16 11:07 Microcytosis TNR 06/07/16 11:07 Macrocytosis TNR 06/07/16 11:07 Spherocytes Not Reportable 06/07/16 11:07 Pappenheimer Bodies Not Reportable 06/07/16 11:07 Sickle Cells Not Reportable 06/07/16 11:07 Target Cells Not Reportable 06/07/16 11:07 Tear Drop Cells Not Reportable 06/07/16 11:07 Ovalocytes Not Reportable 06/07/16 11:07 Helmet Cells Not Reportable 06/07/16 11:07 [place] Bodies TNR 06/07/16 11:07 [place] Rings TNR 06/07/16 11:07 Zuri Cells TNR 06/07/16 11:07 Bite Cells TNR 06/07/16 11:07 Crenated Cell TNR 06/07/16 11:07 Elliptocytes Not Reportable 06/07/16 11:07 Acanthocytes (Spur) Not Reportable 06/07/16 11:07 Rouleaux TNR 06/07/16 11:07 Hemoglobin C Crystals TNR 06/07/16 11:07 Schistocytes TNR 06/07/16 11:07 Malaria parasites TNR 06/07/16 11:07 Hugo Bodies TNR 06/07/16 11:07 Hem Pathologist Commnt No 06/07/16 11:07 Sodium 138 mmol/L (137-145) 06/10/16 05:22 Potassium 3.5 mmol/L (3.6-5.0) L 06/10/16 05:22 Chloride 95.5 mmol/L (98-107) L 06/10/16 05:22 Carbon Dioxide 24 mmol/L (22-30) 06/10/16 05:22 Anion Gap 22 mmol/L 06/10/16 05:22 BUN 4 mg/dL (9-20) L 06/10/16 05:22 Creatinine 0.4 mg/dL (0.8-1.5) L 06/10/16 05:22 Estimated GFR > 60 ml/min 06/10/16 05:22 BUN/Creatinine Ratio 10.00 % 06/10/16 05:22 Glucose 229 mg/dL (75-100) H 06/10/16 05:22 POC Glucose 251 (70-105) H 06/10/16 11:13 Lactic Acid 0.8 mmol/L (0.7-2.0) 06/08/16 14:08 Calcium 8.5 mg/dL (8.4-10.2) 06/10/16 05:22 Urine Color Yellow (Yellow) 06/07/16 18:37 Urine Turbidity Clear (Clear) 06/07/16 18:37 Urine pH 6.0 (5.0-7.0) 06/07/16 18:37 Ur Specific [place] 1.030 (1.003-1.030) 06/07/16 18:37 Urine Protein <15 mg/dl mg/dL (Negative) 06/07/16 18:37 Urine Glucose (UA) >=500 mg/dL (Negative) 06/07/16 18:37 Urine Ketones 80 mg/dL (Negative) 06/07/16 18:37 Urine Blood Neg (Negative) 06/07/16 18:37 Urine Nitrite Neg (Negative) 06/07/16 18:37 Urine Bilirubin Neg (Negative) 06/07/16 18:37 Urine Urobilinogen 2.0 mg/dL (<2.0) 06/07/16 18:37 Ur Leukocyte Esterase Neg (Negative) 06/07/16 18:37 Urine WBC (Auto) 1.0 /HPF (0.0-6.0) 06/07/16 18:37 Urine RBC (Auto) 2.0 /HPF (0.0-6.0) 06/07/16 18:37 U Epithel Cells (Auto) 1.0 /HPF (0-13.0) 06/07/16 18:37 Urine Bacteria (Auto) 1+ /HPF (Negative) 06/07/16 18:37 Urine Mucus Few /HPF 06/07/16 18:37 Vancomycin Trough 9.7 ug/mL (5.0-20.0) 06/09/16 10:20
[2016-06-10] MEDS: XANAX PO PRN (14:14)
--- NOTE | 2016-06-10 17:50 | Consultation ---
History of Present Illness - Reason for Consult Consult date: 06/10/16 RLE swelling - History of Present Illness This is a 30-year-old male presenting with right leg pain. He has a history of chronic right lower extremity swelling, which he says he has experienced for a long time, but over the last 2 weeks or so, it has increased in severity and become painful. He denies fevers or chills. An ultrasound was done on admission, which demonstrated no evidence of deep vein thrombosis. He has never had any history of venous ablation or vein stenting. Past History Past Medical History: diabetes, hypertension Past Surgical History: Other (right Leg surgery) Social history: single, smoking. denies: alcohol abuse, prescription drug abuse Family history: diabetes, hypertension Medications and Allergies Allergies Allergy/AdvReac Type Severity Reaction Status Date / Time acetaminophen Allergy Rash Verified 05/26/15 16:02 [From Darvocet-N] ketorolac tromethamine Allergy Rash Verified 05/26/15 16:02 [From Toradol] propoxyphene napsylate Allergy Rash Verified 05/26/15 16:02 [From Darvocet-N] tomato Allergy Itching Verified 05/26/15 16:02 tramadol Allergy Itching Verified 05/26/15 16:02 Home Medications Medication Instructions Recorded Confirmed Last Taken Type ALPRAZolam [Xanax TAB] 1 mg PO BID PRN 05/25/15 06/07/16 05/15/16 History Active Meds: Active Medications Acetaminophen (Tylenol) 650 mg PO Q4H PRN PRN Reason: Pain MILD(1-3)/Fever >100.5/PACKER Last Admin: 06/09/16 00:44 Dose: 650 mg Albuterol (Proventil) 2.5 mg IH Q4HRT PRN PRN Reason: Shortness Of Breath Alprazolam (Xanax) 1 mg PO BID PRN PRN Reason: Anxiety Last Admin: 06/10/16 14:14 Dose: 1 mg Bisacodyl (Dulcolax) 10 mg AL QDAY PRN PRN Reason: Constipation unrelieved by MOM Dextrose (D50w (25gm)) 50 ml IV PRN PRN PRN Reason: Hypoglycemia Enoxaparin Sodium (Lovenox) 40 mg SUB-Q QDAY KELLI Last Admin: 06/10/16 09:16 Dose: Not Given Vancomycin HCl 2,000 mg/ (Sodium Chloride) 540 mls @ 250 mls/hr IV Q8H KELLI Last Admin: 06/10/16 12:05 Dose: 250 mls/hr Sodium Chloride (Nacl 0.9% 1000 Ml) 1,000 mls @ 75 mls/hr IV DIRECT KELLI Last Admin: 06/09/16 18:15 Dose: 75 mls/hr Insulin Aspart (Novolog) 0 units SUB-Q ACHS KELLI PRN Reason: Protocol Last Admin: 06/10/16 17:37 Dose: 6 units Insulin Detemir (Levemir) 10 units SUB-Q QHS KELLI Magnesium Hydroxide (Milk Of Magnesia) 30 ml PO Q4H PRN PRN Reason: Constipation Morphine Sulfate (Morphine) 2 mg IV Q4H PRN PRN Reason: Pain , Severe (7-10) Last Admin: 06/10/16 15:38 Dose: 2 mg Nicotine (Habitrol) 21 mg TD QDAY [facility] Last Admin: 06/10/16 09:15 Dose: Not Given Ondansetron HCl (Zofran) 4 mg IV Q8H PRN PRN Reason: N/V unrelieved by Reglan Oxycodone/Acetaminophen (Percocet 5/325) 1 tab PO Q4H PRN PRN Reason: Pain, Moderate (4-6) Last Admin: 06/10/16 17:37 Dose: 1 tab Vancomycin HCl (Vancomycin Pharmacy To Dose) 1 each IV PKCONSULT KELLI PRN Reason: Protocol Exam - Constitutional Vitals: Temp Pulse Resp BP Pulse Ox 100.3 F H 85 18 167/89 97 06/10/16 16:00 06/10/16 16:00 06/10/16 16:00 06/10/16 16:00 06/10/16 07:00 - Extremities Extremity abnormal: edema, tenderness Results - Labs CBC & Chem 7: 06/10/16 05:22 06/10/16 05:22 Labs: Abnormal lab results 06/09/16 06/10/16 06/10/16 Range/Units 21:26 03:44 05:22 WBC 13.4 H (4.5-11.0) K/mm3 RBC 3.52 L (3.65-5.03) M/mm3 Hgb 11.3 L (11.8-15.2) gm/dl Hct 33.4 L (35.5-45.6) % MCV 95 H (84-94) fl RDW 13.1 L (13.2-15.2) % Potassium (3.6-5.0) mmol/L Chloride (98-107) mmol/L BUN (9-20) mg/dL Creatinine (0.8-1.5) mg/dL Glucose (75-100) mg/dL POC Glucose 251 H 254 H (70-105) 06/10/16 06/10/16 06/10/16 Range/Units 05:22 06:12 11:13 WBC (4.5-11.0) K/mm3 RBC (3.65-5.03) M/mm3 Hgb (11.8-15.2) gm/dl Hct (35.5-45.6) % MCV (84-94) fl RDW (13.2-15.2) % Potassium 3.5 L (3.6-5.0) mmol/L Chloride 95.5 L (98-107) mmol/L BUN 4 L (9-20) mg/dL Creatinine 0.4 L (0.8-1.5) mg/dL Glucose 229 H (75-100) mg/dL POC Glucose 247 H 251 H (70-105) 06/10/16 Range/Units 16:19 WBC (4.5-11.0) K/mm3 RBC (3.65-5.03) M/mm3 Hgb (11.8-15.2) gm/dl Hct (35.5-45.6) % MCV (84-94) fl RDW (13.2-15.2) % Potassium (3.6-5.0) mmol/L Chloride (98-107) mmol/L BUN (9-20) mg/dL Creatinine (0.8-1.5) mg/dL Glucose (75-100) mg/dL POC Glucose 294 H (70-105) Assessment and Plan I believe this patient is experiencing chronic lymphedema. Given the marked size of his right leg, it is unlikely that any type of endovenous ablation therapy would be helpful. I do think that dynamic compression therapy with a lymphedema pump may be a good option for him. This can be arranged for him in an outpatient setting. I have given the patient and his family the number for the office and have instructed them to make an appointment with me so we can make further arrangements. In the meantime, whatever degree of leg elevation the patient can tolerate should be continued.
[2016-06-10] MEDS: LEVEMIR SUB-Q SCH (22:42)
[2016-06-11] MEDS: MORPHINE IV PRN ×4 (01:36→19:11)
[2016-06-11] MEDS: XANAX PO PRN ×3 (01:36→21:30)
[2016-06-11] MEDS: VANCOMYCIN 2,000 MG in NACL 0.9% 500 ML 500 ML IV SCH ×3 (04:36→20:12)
[2016-06-11] MEDS: NOVOLOG SUB-Q SCH ×4 (08:42→21:31)
--- NOTE | 2016-06-11 09:20 | Progress Note ---
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 He was diagnosed with right leg cellulitis with sepsis. Venous leg dopplers negative for DVT. -Right leg cellulitis: Continue IV antibiotics -Right leg lymphedema: Consult wound care, patient asked for more IV narcotics which helped last night. -Sepsis due to right leg cellulitis present on admission: Continue antibiotics -Uncontrolled diabetes mellitus with hyperglycemia: add Sliding scale insulin -Disposition: continue inpatient care Overnight, he had a fever. Re-evaluated his right leg, there is a grapefruit size abscess right medial thigh with pinhole (too painful to squeeze). Consulted General Surgery History Interval history: Patient seen and examined. Follow up on right leg pain which is severe. Overnight uneventful. No cp, sob, n/v or severe headaches. Imaging, old records , testing, labs, nursing notes reviewed. Plan discussed with patient. Hospitalist Physical - Physical exam Narrative exam: GEN: WDWN, NAD, AWAKE, ALERT, ORIENTATED 3 HEENT: NCAT, PERRL, EOMI, OP CLEAR NECK: SUPPLE, NO THYROMEGALY, NO JVD, NO LAD CVS: RRR, NORMAL S1S2 LUNGS/CHEST: CTA B, NORMAL CHEST EXPANSION B, GOOD AIR ENTRY B ABD: SOFT NTND, GBS, NO REBOUND OR GUARDING EXT/SKIN: Right leg lymphedema with warm tenderness, right medical thigh has abscess, pinhole with spontaneous drainage on bedsheets MSK: FROM X 4 EXTREMITIES NEURO: CN 2-12 GROSSLY INTACT, NO new FOCAL DEFICITS PSY: CALM - Constitutional Vitals: Temp Pulse Resp BP Pulse Ox 97.8 F 74 22 148/66 96 06/11/16 08:00 06/11/16 08:00 06/11/16 08:00 06/11/16 08:00 06/11/16 08:00 General appearance: Present: no acute distress, well-nourished Results - Labs CBC & Chem 7: 06/10/16 05:22 06/10/16 05:22 Labs: Laboratory Last Values WBC 13.4 K/mm3 (4.5-11.0) H 06/10/16 05:22 RBC 3.52 M/mm3 (3.65-5.03) L 06/10/16 05:22 Hgb 11.3 gm/dl (11.8-15.2) L 06/10/16 05:22 Hct 33.4 % (35.5-45.6) L 06/10/16 05:22 MCV 95 fl (84-94) H 06/10/16 05:22 MCH 32 pg (28-32) 06/10/16 05:22 MCHC 34 % (32-34) 06/10/16 05:22 RDW 13.1 % (13.2-15.2) L 06/10/16 05:22 Plt Count 385 K/mm3 (140-440) 06/10/16 05:22 Lymph % (Auto) 8.0 % (13.4-35.0) L 06/09/16 04:14 Towns % (Auto) 7.9 % (0.0-7.3) H 06/09/16 04:14 Eos % (Auto) 0.1 % (0.0-4.3) 06/09/16 04:14 Baso % (Auto) 0.3 % (0.0-1.8) 06/09/16 04:14 Lymph # 1.1 K/mm3 (1.2-5.4) L 06/09/16 04:14 [place] # 1.1 K/mm3 (0.0-0.8) H 06/09/16 04:14 Eos # 0.0 K/mm3 (0.0-0.4) 06/09/16 04:14 Baso # 0.0 K/mm3 (0.0-0.1) 06/09/16 04:14 Add Manual Diff Complete 06/07/16 11:07 Total Counted TNR 06/07/16 11:07 Seg Neutrophils % 83.7 % (40.0-70.0) H 06/09/16 04:14 Seg Neuts % (Manual) TNR 06/07/16 11:07 Band Neutrophils % TNR 06/07/16 11:07 Lymphocytes % (Manual) TNR 06/07/16 11:07 Reactive Lymphs % (Man) TNR 06/07/16 11:07 Monocytes % (Manual) TNR 06/07/16 11:07 Eosinophils % (Manual) TNR 06/07/16 11:07 Basophils % (Manual) TNR 06/07/16 11:07 Metamyelocytes % TNR 06/07/16 11:07 Myelocytes % TNR 06/07/16 11:07 Promyelocytes % TNR 06/07/16 11:07 Blast Cells % TNR 06/07/16 11:07 Nucleated RBC % TNR 06/07/16 11:07 Seg Neutrophils # 11.2 K/mm3 (1.8-7.7) H 06/09/16 04:14 Seg Neutrophils # Man TNR 06/07/16 11:07 Band Neutrophils # TNR 06/07/16 11:07 Lymphocytes # (Manual) TNR 06/07/16 11:07 Abs React Lymphs (Man) TNR 06/07/16 11:07 Monocytes # (Manual) TNR 06/07/16 11:07 Eosinophils # (Manual) TNR 06/07/16 11:07 Basophils # (Manual) TNR 06/07/16 11:07 Metamyelocytes # TNR 06/07/16 11:07 Myelocytes # TNR 06/07/16 11:07 Promyelocytes # TNR 06/07/16 11:07 Blast Cells # TNR 06/07/16 11:07 WBC Morphology TNR 06/07/16 11:07 Hypersegmented Neuts TNR 06/07/16 11:07 Hyposegmented Neuts TNR 06/07/16 11:07 Hypogranular Neuts TNR 06/07/16 11:07 Hypersegmented Polys TNR 06/07/16 11:07 Smudge Cells TNR 06/07/16 11:07 Toxic Granulation TNR 06/07/16 11:07 Toxic Vacuolation TNR 06/07/16 11:07 Dohle Bodies TNR 06/07/16 11:07 Pelger-Huet Anomaly TNR 06/07/16 11:07 Maryann Rods TNR 06/07/16 11:07 Platelet Estimate TNR 06/07/16 11:07 Clumped Platelets TNR 06/07/16 11:07 Plt Clumps, EDTA TNR 06/07/16 11:07 Large Platelets TNR 06/07/16 11:07 Giant Platelets TNR 06/07/16 11:07 Platelet Satelliting TNR 06/07/16 11:07 Plt Morphology Comment TNR 06/07/16 11:07 RBC Morphology TNR 06/07/16 11:07 Dimorphic RBCs TNR 06/07/16 11:07 Polychromasia TNR 06/07/16 11:07 Hypochromasia TNR 06/07/16 11:07 Poikilocytosis TNR 06/07/16 11:07 Basophilic Stippling TNR 06/07/16 11:07 Anisocytosis TNR 06/07/16 11:07 Microcytosis TNR 06/07/16 11:07 Macrocytosis TNR 06/07/16 11:07 Spherocytes Not Reportable 06/07/16 11:07 Pappenheimer Bodies Not Reportable 06/07/16 11:07 Sickle Cells Not Reportable 06/07/16 11:07 Target Cells Not Reportable 06/07/16 11:07 Tear Drop Cells Not Reportable 06/07/16 11:07 Ovalocytes Not Reportable 06/07/16 11:07 Helmet Cells Not Reportable 06/07/16 11:07 Rc[place] Bodies TNR 06/07/16 11:07 [place] Rings TNR 06/07/16 11:07 Zuri Cells TNR 06/07/16 11:07 Bite Cells TNR 06/07/16 11:07 Crenated Cell TNR 06/07/16 11:07 Elliptocytes Not Reportable 06/07/16 11:07 Acanthocytes (Spur) Not Reportable 06/07/16 11:07 Rouleaux TNR 06/07/16 11:07 Hemoglobin C Crystals TNR 06/07/16 11:07 Schistocytes TNR 06/07/16 11:07 Malaria parasites TNR 06/07/16 11:07 Hugo Bodies TNR 06/07/16 11:07 Hem Pathologist Commnt No 06/07/16 11:07 Sodium 138 mmol/L (137-145) 06/10/16 05:22 Potassium 3.5 mmol/L (3.6-5.0) L 06/10/16 05:22 Chloride 95.5 mmol/L (98-107) L 06/10/16 05:22 Carbon Dioxide 24 mmol/L (22-30) 06/10/16 05:22 Anion Gap 22 mmol/L 06/10/16 05:22 BUN 4 mg/dL (9-20) L 06/10/16 05:22 Creatinine 0.4 mg/dL (0.8-1.5) L 06/10/16 05:22 Estimated GFR > 60 ml/min 06/10/16 05:22 BUN/Creatinine Ratio 10.00 % 06/10/16 05:22 Glucose 229 mg/dL (75-100) H 06/10/16 05:22 POC Glucose 261 (70-105) H 06/11/16 06:24 Lactic Acid 0.8 mmol/L (0.7-2.0) 06/08/16 14:08 Calcium 8.5 mg/dL (8.4-10.2) 06/10/16 05:22 Urine Color Yellow (Yellow) 06/07/16 18:37 Urine Turbidity Clear (Clear) 06/07/16 18:37 Urine pH 6.0 (5.0-7.0) 06/07/16 18:37 Ur Specific [place] 1.030 (1.003-1.030) 06/07/16 18:37 Urine Protein <15 mg/dl mg/dL (Negative) 06/07/16 18:37 Urine Glucose (UA) >=500 mg/dL (Negative) 06/07/16 18:37 Urine Ketones 80 mg/dL (Negative) 06/07/16 18:37 Urine Blood Neg (Negative) 06/07/16 18:37 Urine Nitrite Neg (Negative) 06/07/16 18:37 Urine Bilirubin Neg (Negative) 06/07/16 18:37 Urine Urobilinogen 2.0 mg/dL (<2.0) 06/07/16 18:37 Ur Leukocyte Esterase Neg (Negative) 06/07/16 18:37 Urine WBC (Auto) 1.0 /HPF (0.0-6.0) 06/07/16 18:37 Urine RBC (Auto) 2.0 /HPF (0.0-6.0) 06/07/16 18:37 U Epithel Cells (Auto) 1.0 /HPF (0-13.0) 06/07/16 18:37 Urine Bacteria (Auto) 1+ /HPF (Negative) 06/07/16 18:37 Urine Mucus Few /HPF 04/26/17 18:37 Vancomycin Trough 9.7 ug/mL (5.0-20.0) 06/09/16 10:20
[2016-06-11] MEDS: HABITROL TD SCH (10:35)
[2016-06-11] MEDS: LOVENOX SUB-Q SCH (10:36)
[2016-06-11] MEDS: NACL 0.9% 1000 ML 1,000 ML IV SCH (12:42)
--- NOTE | 2016-06-11 18:56 | Consultation ---
History of Present Illness Consult date: 06/11/16 Reason for consult: other (Fluid collection right leg.) Chief complaint: Right leg pain. - History of present illness History of present illness: 30-year-old male admitted to the hospital with right leg pain. Patient has had elepahntiasis on that leg for many years. We are consulted to about a fluid collection in the medial aspect of the upper right leg. Past History Past Medical History: diabetes, hypertension, other (elephantiasis right leg) Past Surgical History: Other (right leg surgery) Social history: single, smoking. denies: alcohol abuse, prescription drug abuse Family history: diabetes, hypertension Medications and Allergies Allergies Allergy/AdvReac Type Severity Reaction Status Date / Time acetaminophen Allergy Rash Verified 05/26/15 16:02 [From Darvocet-N] ketorolac tromethamine Allergy Rash Verified 05/26/15 16:02 [From Toradol] propoxyphene napsylate Allergy Rash Verified 05/26/15 16:02 [From Darvocet-N] tomato Allergy Itching Verified 05/26/15 16:02 tramadol Allergy Itching Verified 05/26/15 16:02 Home Medications Medication Instructions Recorded Confirmed Last Taken Type ALPRAZolam [Xanax TAB] 1 mg PO BID PRN 05/25/15 06/07/16 05/15/16 History Active Meds: Active Medications Acetaminophen (Tylenol) 650 mg PO Q4H PRN PRN Reason: Pain MILD(1-3)/Fever >100.5/PACKER Last Admin: 06/09/16 00:44 Dose: 650 mg Albuterol (Proventil) 2.5 mg IH Q4HRT PRN PRN Reason: Shortness Of Breath Alprazolam (Xanax) 1 mg PO BID PRN PRN Reason: Anxiety Last Admin: 06/11/16 10:33 Dose: 1 mg Bisacodyl (Dulcolax) 10 mg IA QDAY PRN PRN Reason: Constipation unrelieved by MOM Dextrose (D50w (25gm)) 50 ml IV PRN PRN PRN Reason: Hypoglycemia Enoxaparin Sodium (Lovenox) 40 mg SUB-Q QDAY KELLI Last Admin: 06/11/16 10:36 Dose: Not Given Vancomycin HCl 2,000 mg/ (Sodium Chloride) 540 mls @ 250 mls/hr IV Q8H [facility], [facility]1983 Last Admin: 06/11/16 12:39 Dose: 250 mls/hr Sodium Chloride (Nacl 0.9% 1000 Ml) 1,000 mls @ 75 mls/hr IV DIRECT [facility], [facility]1983 Last Admin: 06/11/16 12:42 Dose: 75 mls/hr Insulin Aspart (Novolog) 0 units SUB-Q ACHS [facility]1983 PRN Reason: Protocol Last Admin: 06/11/16 18:36 Dose: 4 units Insulin Detemir (Levemir) 10 units SUB-Q QHS [facility]1983 Last Admin: 06/10/16 22:42 Dose: 10 units Magnesium Hydroxide (Milk Of Magnesia) 30 ml PO Q4H PRN PRN Reason: Constipation Morphine Sulfate (Morphine) 2 mg IV Q4H PRN PRN Reason: Pain , Severe (7-10) Last Admin: 06/11/16 15:26 Dose: 2 mg Nicotine (Habitrol) 21 mg TD QDAY [facility]1983 Last Admin: 06/11/16 10:35 Dose: Not Given Ondansetron HCl (Zofran) 4 mg IV Q8H PRN PRN Reason: N/V unrelieved by Reglan Oxycodone/Acetaminophen (Percocet 5/325) 1 tab PO Q4H PRN PRN Reason: Pain, Moderate (4-6) Last Admin: 06/10/16 22:41 Dose: 1 tab Vancomycin HCl (Vancomycin Pharmacy To Dose) 1 each IV PKCONSULT KELLI PRN Reason: Protocol Review of Systems All systems: negative (present complaint.) Exam Vital Signs Pulse Ox 98 06/07/16 09:23 - General physical appearance Positive: well developed, well nourished, no distress, obese - Eyes Positive: PERRL, normal occular movement - ENT Positive: normal pinna, normal nares, normal mucosa, no hearing loss, no congestion - Neck Positive: no masses, no bruits, trachea midline, no venous distension - Respiratory Positive: normal expansion, normal respiratory effort, clear to auscultation - Cardiovascular Rhythm: regular Heart Sounds: Present: S1 & S2 - Extremities Extremities: abnormal (has elephantiasis of the right leg with a fluid collection in the medial upper right leg.) Extremity abnormal: other (needle aspiration of the area yielded some bloody cloudy fluid.) - Abdomen Abdomen: Present: soft, bowel sounds normal. Absent: tender - Genitourinary Male Genitourinary: deferred - Integumentary other (see description of the right leg examination.) Results - Labs 06/10/16 05:22 06/10/16 05:22 Abnormal lab results 06/10/16 06/11/16 06/11/16 Range/Units 20:45 06:24 11:23 POC Glucose 328 H 261 H 237 H (70-105) - Imaging Additional studies: Report of the right leg Doppler ultrasound was reviewed. Assessment and Plan Impression: #1. Elephantiasis right leg with fluid collection in the upper medial portion of the leg. #2. Diabetes. #3. Hypertension. #4. Obesity. Recommendations: Patient to stay nothing by mouth today after midnight. He has been scheduled for incision and drainage of fluid collection of the right leg in the operating room under general anesthesia tomorrow. 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
[2016-06-11] MEDS: PERCOCET 5/325 PO PRN (21:29)
[2016-06-11] MEDS: LEVEMIR SUB-Q SCH (21:32)
[2016-06-12] MEDS: VANCOMYCIN 2,000 MG in NACL 0.9% 500 ML 500 ML IV SCH ×2 (04:30→16:00)
[2016-06-12] MEDS: MORPHINE IV PRN ×4 (04:39→20:38)
[2016-06-12 07:37] LABS: Hematocrit 32.6 % (35.5-45.6); Hemoglobin 10.8 gm/dl (11.8-15.2); Mean Corpuscular HGB Conc 33 % (32-34); Mean Corpuscular Hemoglobin 31 pg (28-32); Mean Corpuscular Volume 94 fl (84-94); Platelet Count 442 K/mm3 (140-440); Red Blood Count 3.48 M/mm3 (3.65-5.03); Red Cell Distribution Width 13.4 % (13.2-15.2); White Blood Count 13.3 K/mm3 (4.5-11.0)
[2016-06-12 08:00] LABS: Anion Gap 18 mmol/L; Blood Urea Nitrogen 4 mg/dL (9-20); Calcium 8.1 mg/dL (8.4-10.2); Carbon Dioxide 25 mmol/L (22-30); Chloride 98.3 mmol/L (98-107); Glucose 229 mg/dL (75-100); Potassium 3.6 mmol/L (3.6-5.0); Sodium 138 mmol/L (137-145)
[2016-06-12] MEDS: NOVOLOG SUB-Q SCH ×4 (08:59→22:36)
--- NOTE | 2016-06-12 10:47 | Anesthesia Day of Surgery ---
Anesthesia Day of Surgery - Day of Surgery Patient Examined: Yes Patient H&P Reviewed: Yes Patient is NPO: Yes
--- NOTE | 2016-06-12 10:49 | Anesthesia Consultation ---
Anesthesia Consult and Med Hx Date of service: 06/12/16 - Airway Anesthetic Teeth Evaluation: Good ROM Head & Neck: Adequate Mental/Hyoid Distance: Adequate Mallampati Class: Class II Intubation Access Assessment: Probably Good - Pulmonary Exam CTA: Yes (blbs clear) - Cardiac Exam Cardiac Exam: RRR - Pre-Operative Health Status ASA Pre-Surgery Classification: ASA3 Proposed Anesthetic Plan: General - Pulmonary Hx Smoking: Yes Hx Asthma: Yes COPD: No Hx Pneumonia: No Hx Sleep Apnea: Yes - Cardiovascular System Hx Hypertension: Yes Hx Heart Attack/AMI: No Hx Internal Defibrillator: No - Central Nervous System Hx Seizures: No - Endocrine Hx Renal Disease: No Hx End Stage Renal Disease: No Hx Liver Disease: No Hx Non-Insulin Dependent Diabetes: Yes (now on insulin) - Hematic Hx Sickle Cell Disease: No - Other Systems Hx Alcohol Use: Yes Hx Substance Use: Yes (Marijuana) Hx Cancer: No Hx Obesity: Yes - Additional Comments Anesthesia Medical History Comments: metabolic syndrome lymphedema RLE cellulitis SIRS
[2016-06-12] MEDS ORDERED: DILAUDID ONE ×2 (11:18→13:10)
[2016-06-12] MEDS ORDERED: SUBLIMAZE ONE (11:18)
[2016-06-12] MEDS ORDERED: DIPRIVAN 10 MG/ML IV ONE ×3 (11:18→11:51)
[2016-06-12] MEDS ORDERED: ZEMURON IV ONE (11:19)
[2016-06-12] MEDS ORDERED: XYLOCAINE MPF 2% ONE (11:20)
[2016-06-12] MEDS ORDERED: DECADRON ONE (11:24)
[2016-06-12] MEDS ORDERED: ZOFRAN ONE (11:24)
[2016-06-12] MEDS ORDERED: ROBINUL ONE ×3 (11:24→12:23)
[2016-06-12] MEDS ORDERED: ANCEF/STERILE WATER 2 GM/20 ML IV ONE (11:49)
[2016-06-12] MEDS ORDERED: PEPCID IV NR (12:00)
[2016-06-12] MEDS ORDERED: ANCEF/STERILE WATER 2 GM/20 ML IV NR (12:00)
[2016-06-12] MEDS ORDERED: NACL 0.9% 1000 ML 1,000 ML IV SCH (12:00)
[2016-06-12] MEDS ORDERED: NACL 0.9% IR ONE (12:20)
[2016-06-12] MEDS ORDERED: BLOXIVERZ ONE (12:23)
--- NOTE | 2016-06-12 13:11 | Operative Report ---
Operative Report Operative Report: Date of operation: 06/12/2016. Preoperative Postoperative: Abscess right leg. Operation: 1. Incision and drainage of His right leg. #2. Excisional debridement of abscess right leg. #3. Wound VAC placement. Surgeon: David Sebastian M.D. Findings: 30 years old male with massive elephantiasis of the right leg. The patient was admitted to the hospital with pain in the upper right leg. Was found to have a fluctuant area in the medial posterior area distal to the knee. There was discoloration of the skin on top of that area. At operation we found a large fluid cavity with cloudy fluid which was about 15 cm in diameter and 7 cm deep. There was a strong cough necrotic subcutaneous tissue towards the inferior and posterior side of the calf. Procedure: Under general anesthesia the right lower extremity was prepped and draped in the usual sterile manner. An incision over the area of interest was made with a #15 blade and a lot of cloudy purulent material was aspirated with the suction. Cultures of this material were taken. After that was done the wound cavity was inspected and explore with my fingers. The findings were as stated above. Then we proceeded to perform excisional debridement removing a lot of necrotic subcutaneous tissue down to fascia. This was performed with the [place] scissors. We removed tissue until the combs of the cavity were noted to be covered with some granulation tissue. Some oozing vessels were controlled with electrocautery. Then the wound was irrigated with normal saline solution. I would VAC was put in place using a large and a small sponge to fill up the cavity. Then the wound and the sponges were covered with the adhesive provided in the kit. The wound vac was connected and was very little or no leak. The patient was then awakened, extubated and transferred to the recovery room in good condition. Estimated blood loss: Negligible. Intravenous fluid replacement: Crystalloids. Specimens: Necrotic subcutaneous tissue. Cultures. Condition: Stable.
--- NOTE | 2016-06-12 14:01 | Progress Note ---
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 He was diagnosed with right leg cellulitis with sepsis. Venous leg dopplers negative for DVT. -Right leg cellulitis: Continue IV antibiotics -Right leg lymphedema: Consult wound care, patient asked for more IV narcotics which helped last night. -Sepsis due to right leg cellulitis present on admission: Continue antibiotics -Uncontrolled diabetes mellitus with hyperglycemia: add Sliding scale insulin -Disposition: continue inpatient care Overnight, still with fevers due to right medical leg right below knee abscess. Consulted General Surgery, going to surgery for I-n-D today. Follow up culture History Interval history: Patient seen and examined. Follow up on right leg pain which is severe. Overnight uneventful. No cp, sob, n/v or severe headaches. Imaging, old records , testing, labs, nursing notes reviewed. Plan discussed with patient. Going for surgery today, at bedside. Hospitalist Physical - Physical exam Narrative exam: GEN: WDWN, NAD, AWAKE, ALERT, ORIENTATED 3 HEENT: NCAT, PERRL, EOMI, OP CLEAR NECK: SUPPLE, NO THYROMEGALY, NO JVD, NO LAD CVS: RRR, NORMAL S1S2 LUNGS/CHEST: CTA B, NORMAL CHEST EXPANSION B, GOOD AIR ENTRY B ABD: SOFT NTND, GBS, NO REBOUND OR GUARDING EXT/SKIN: Right leg lymphedema with warm tenderness, right medical upper leg not thigh has abscess, pinhole with spontaneous drainage on bedsheets MSK: FROM X 4 EXTREMITIES NEURO: CN 2-12 GROSSLY INTACT, NO new FOCAL DEFICITS PSY: CALM - Constitutional Vitals: Temp Pulse Resp BP Pulse Ox 100.8 F H 85 22 148/83 96 06/12/16 11:00 06/12/16 11:00 06/12/16 11:00 06/12/16 11:00 06/12/16 11:00 General appearance: Present: no acute distress, well-nourished Results - Labs CBC & Chem 7: 06/12/16 06:55 06/12/16 06:55 Labs: Laboratory Last Values WBC 13.3 K/mm3 (4.5-11.0) H 06/12/16 06:55 RBC 3.48 M/mm3 (3.65-5.03) L 06/12/16 06:55 Hgb 10.8 gm/dl (11.8-15.2) L 06/12/16 06:55 Hct 32.6 % (35.5-45.6) L 06/12/16 06:55 MCV 94 fl (84-94) 06/12/16 06:55 MCH 31 pg (28-32) 06/12/16 06:55 MCHC 33 % (32-34) 06/12/16 06:55 RDW 13.4 % (13.2-15.2) 06/12/16 06:55 Plt Count 442 K/mm3 (140-440) H 06/12/16 06:55 Lymph % (Auto) 8.0 % (13.4-35.0) L 06/09/16 04:14 [place] % (Auto) 7.9 % (0.0-7.3) H 06/09/16 04:14 Eos % (Auto) 0.1 % (0.0-4.3) 06/09/16 04:14 Baso % (Auto) 0.3 % (0.0-1.8) 06/09/16 04:14 Lymph # 1.1 K/mm3 (1.2-5.4) L 06/09/16 04:14 [place] # 1.1 K/mm3 (0.0-0.8) H 06/09/16 04:14 Eos # 0.0 K/mm3 (0.0-0.4) 06/09/16 04:14 Baso # 0.0 K/mm3 (0.0-0.1) 06/09/16 04:14 Add Manual Diff Complete 06/07/16 11:07 Total Counted TNR 06/07/16 11:07 Seg Neutrophils % 83.7 % (40.0-70.0) H 06/09/16 04:14 Seg Neuts % (Manual) TNR 06/07/16 11:07 Band Neutrophils % TNR 06/07/16 11:07 Lymphocytes % (Manual) TNR 06/07/16 11:07 Reactive Lymphs % (Man) TNR 06/07/16 11:07 Monocytes % (Manual) TNR 06/07/16 11:07 Eosinophils % (Manual) TNR 06/07/16 11:07 Basophils % (Manual) TNR 06/07/16 11:07 Metamyelocytes % TNR 06/07/16 11:07 Myelocytes % TNR 06/07/16 11:07 Promyelocytes % TNR 06/07/16 11:07 Blast Cells % TNR 06/07/16 11:07 Nucleated RBC % TNR 06/07/16 11:07 Seg Neutrophils # 11.2 K/mm3 (1.8-7.7) H 06/09/16 04:14 Seg Neutrophils # Man TNR 06/07/16 11:07 Band Neutrophils # TNR 06/07/16 11:07 Lymphocytes # (Manual) TNR 06/07/16 11:07 Abs React Lymphs (Man) TNR 06/07/16 11:07 Monocytes # (Manual) TNR 06/07/16 11:07 Eosinophils # (Manual) TNR 06/07/16 11:07 Basophils # (Manual) TNR 06/07/16 11:07 Metamyelocytes # TNR 06/07/16 11:07 Myelocytes # TNR 06/07/16 11:07 Promyelocytes # TNR 06/07/16 11:07 Blast Cells # TNR 06/07/16 11:07 WBC Morphology TNR 06/07/16 11:07 Hypersegmented Neuts TNR 06/07/16 11:07 Hyposegmented Neuts TNR 06/07/16 11:07 Hypogranular Neuts TNR 06/07/16 11:07 Hypersegmented Polys TNR 06/07/16 11:07 Smudge Cells TNR 06/07/16 11:07 Toxic Granulation TNR 06/07/16 11:07 Toxic Vacuolation TNR 06/07/16 11:07 Dohle Bodies TNR 06/07/16 11:07 Pelger-Huet Anomaly TNR 06/07/16 11:07 Maryann Rods TNR 06/07/16 11:07 Platelet Estimate TNR 06/07/16 11:07 Clumped Platelets TNR 06/07/16 11:07 Plt Clumps, EDTA TNR 06/07/16 11:07 Large Platelets TNR 06/07/16 11:07 Giant Platelets TNR 06/07/16 11:07 Platelet Satelliting TNR 06/07/16 11:07 Plt Morphology Comment TNR 06/07/16 11:07 RBC Morphology TNR 06/07/16 11:07 Dimorphic RBCs TNR 06/07/16 11:07 Polychromasia TNR 06/07/16 11:07 Hypochromasia TNR 06/07/16 11:07 Poikilocytosis TNR 06/07/16 11:07 Basophilic Stippling TNR 06/07/16 11:07 Anisocytosis TNR 06/07/16 11:07 Microcytosis TNR 06/07/16 11:07 Macrocytosis TNR 06/07/16 11:07 Spherocytes Not Reportable 06/07/16 11:07 Pappenheimer Bodies Not Reportable 06/07/16 11:07 Sickle Cells Not Reportable 06/07/16 11:07 Target Cells Not Reportable 06/07/16 11:07 Tear Drop Cells Not Reportable 06/07/16 11:07 Ovalocytes Not Reportable 06/07/16 11:07 Helmet Cells Not Reportable 06/07/16 11:07 [place] Bodies TNR 06/07/16 11:07 [place] Rings TNR 06/07/16 11:07 Zuri Cells TNR 06/07/16 11:07 Bite Cells TNR 06/07/16 11:07 Crenated Cell TNR 06/07/16 11:07 Elliptocytes Not Reportable 06/07/16 11:07 Acanthocytes (Spur) Not Reportable 06/07/16 11:07 Rouleaux TNR 06/07/16 11:07 Hemoglobin C Crystals TNR 06/07/16 11:07 Schistocytes TNR 06/07/16 11:07 Malaria parasites TNR 06/07/16 11:07 Hugo Bodies TNR 06/07/16 11:07 Hem Pathologist Commnt No 06/07/16 11:07 Sodium 138 mmol/L (137-145) 06/12/16 06:55 Potassium 3.6 mmol/L (3.6-5.0) 06/12/16 06:55 Chloride 98.3 mmol/L (98-107) 06/12/16 06:55 Carbon Dioxide 25 mmol/L (22-30) 06/12/16 06:55 Anion Gap 18 mmol/L 06/12/16 06:55 BUN 4 mg/dL (9-20) L 06/12/16 06:55 Creatinine 0.4 mg/dL (0.8-1.5) L 06/12/16 06:55 Estimated GFR > 60 ml/min 06/12/16 06:55 BUN/Creatinine Ratio 10.00 % 06/12/16 06:55 Glucose 229 mg/dL (75-100) H 06/12/16 06:55 POC Glucose 197 (70-105) H 06/12/16 13:20 Lactic Acid 0.8 mmol/L (0.7-2.0) 06/08/16 14:08 Calcium 8.1 mg/dL (8.4-10.2) L 06/12/16 06:55 Urine Color Yellow (Yellow) 06/07/16 18:37 Urine Turbidity Clear (Clear) 06/07/16 18:37 Urine pH 6.0 (5.0-7.0) 06/07/16 18:37 Ur Specific [place] 1.030 (1.003-1.030) 06/07/16 18:37 Urine Protein <15 mg/dl mg/dL (Negative) 06/07/16 18:37 Urine Glucose (UA) >=500 mg/dL (Negative) 06/07/16 18:37 Urine Ketones 80 mg/dL (Negative) 06/07/16 18:37 Urine Blood Neg (Negative) 06/07/16 18:37 Urine Nitrite Neg (Negative) 06/07/16 18:37 Urine Bilirubin Neg (Negative) 06/07/16 18:37 Urine Urobilinogen 2.0 mg/dL (<2.0) 06/07/16 18:37 Ur Leukocyte Esterase Neg (Negative) 06/07/16 18:37 Urine WBC (Auto) 1.0 /HPF (0.0-6.0) 06/07/16 18:37 Urine RBC (Auto) 2.0 /HPF (0.0-6.0) 06/07/16 18:37 U Epithel Cells (Auto) 1.0 /HPF (0-13.0) 06/07/16 18:37 Urine Bacteria (Auto) 1+ /HPF (Negative) 06/07/16 18:37 Urine Mucus Few /HPF 06/07/16 18:37 Vancomycin Trough 9.3 ug/mL (5.0-20.0) 06/12/16 11:50
[2016-06-12] MEDS: HABITROL TD SCH (16:03)
[2016-06-12] MEDS: LOVENOX SUB-Q SCH (16:03)
[2016-06-12] MEDS: XANAX PO PRN ×2 (17:31→23:34)
[2016-06-12] MEDS: VANCOMYCIN 1,750 MG in NACL 0.9% 500 ML 500 ML IV SCH (22:36)
[2016-06-12] MEDS: LEVEMIR SUB-Q SCH (22:37)
[2016-06-12] MEDS: PERCOCET 5/325 PO PRN (23:33)
[2016-06-13] MEDS: MORPHINE IV PRN ×5 (04:35→22:39)
[2016-06-13 05:45] LABS: Hematocrit 32.2 % (35.5-45.6); Hemoglobin 10.5 gm/dl (11.8-15.2); Mean Corpuscular HGB Conc 33 % (32-34); Mean Corpuscular Hemoglobin 31 pg (28-32); Mean Corpuscular Volume 95 fl (84-94); Platelet Count 451 K/mm3 (140-440); Red Blood Count 3.39 M/mm3 (3.65-5.03); Red Cell Distribution Width 13.5 % (13.2-15.2); White Blood Count 11.8 K/mm3 (4.5-11.0)
[2016-06-13 06:04] LABS: Anion Gap 19 mmol/L; BUN/Creatinine Ratio 13.33; Blood Urea Nitrogen 4 mg/dL (9-20); Calcium 8.6 mg/dL (8.4-10.2); Carbon Dioxide 22 mmol/L (22-30); Chloride 97.6 mmol/L (98-107); Glucose 245 mg/dL (75-100); Potassium 3.8 mmol/L (3.6-5.0); Sodium 135 mmol/L (137-145)
[2016-06-13] MEDS: VANCOMYCIN 1,750 MG in NACL 0.9% 500 ML 500 ML IV SCH ×4 (06:10→22:44)
[2016-06-13] MEDS: NACL 0.9% 1000 ML 1,000 ML IV SCH (06:12)
[2016-06-13] MEDS: NOVOLOG SUB-Q SCH ×3 (08:21→18:08)
[2016-06-13] MEDS: PERCOCET 5/325 PO PRN (09:57)
[2016-06-13] MEDS: HABITROL TD SCH (09:58)
[2016-06-13] MEDS: LOVENOX SUB-Q SCH (10:41)
--- NOTE | 2016-06-13 11:44 | Progress Note ---
Assessment and Plan IMP: Stable day after I&D with debridement and wound vac placement. PLAN: May go home with wound vac. Subjective Date of service: 06/13/16 Patient Reports: Positive: no new complaints Objective Vital Signs - 12hr 06/13/16 08:00 Temperature 99.1 F Pulse Rate [ 81 Apical] Respiratory 18 Rate Blood Pressure 135/88 [Left Arm] - Integumentary other (wound vac in place.) - Labs 06/13/16 04:45 06/13/16 04:45 Diabetes panel 06/13/16 Range/Units 04:45 Sodium 135 L (137-145) mmol/L Potassium 3.8 (3.6-5.0) mmol/L Chloride 97.6 L (98-107) mmol/L Carbon Dioxide 22 (22-30) mmol/L BUN 4 L (9-20) mg/dL Creatinine 0.3 L (0.8-1.5) mg/dL Glucose 245 H (75-100) mg/dL Calcium 8.6 (8.4-10.2) mg/dL Calcium panel 06/13/16 Range/Units 04:45 Calcium 8.6 (8.4-10.2) mg/dL Pituitary panel 06/13/16 Range/Units 04:45 Sodium 135 L (137-145) mmol/L Potassium 3.8 (3.6-5.0) mmol/L Chloride 97.6 L (98-107) mmol/L Carbon Dioxide 22 (22-30) mmol/L BUN 4 L (9-20) mg/dL Creatinine 0.3 L (0.8-1.5) mg/dL Glucose 245 H (75-100) mg/dL Calcium 8.6 (8.4-10.2) mg/dL Adrenal panel 06/13/16 Range/Units 04:45 Sodium 135 L (137-145) mmol/L Potassium 3.8 (3.6-5.0) mmol/L Chloride 97.6 L (98-107) mmol/L Carbon Dioxide 22 (22-30) mmol/L BUN 4 L (9-20) mg/dL Creatinine 0.3 L (0.8-1.5) mg/dL Glucose 245 H (75-100) mg/dL Calcium 8.6 (8.4-10.2) mg/dL
--- NOTE | 2016-06-13 14:04 | Progress Note ---
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 He was diagnosed with right leg cellulitis with sepsis. Venous leg dopplers negative for DVT. -Right leg cellulitis: Continue IV antibiotics with vancomycin, dosing per pharmacy. Cultures reviewed growing beta-hemolytic strep group B await sensitivity -Right leg lymphedema: Consult wound care, continue pain control -Sepsis due to right leg cellulitis present on admission: Continue antibiotics -Uncontrolled diabetes mellitus with hyperglycemia: Patient reports is the first time is 5 out of his diabetic add Sliding scale insulin. Diabetic education provided -Morbid Obesity BMI 46.0 weight loss modalities discussed detail -Disposition: continue inpatient care, Once sensitivities determined he can start him on the right antibiotics for discharge. Will need home health. Will need the WOUND VAC PER SURGERY AND I HAVE discussed this with him although he prefers wet to dry dressing. -DVT and GI prophylaxis History Interval history: Patient seen and examined this morning in no acute distress status post I and D of right lower extremity abscess area and reports continued pain does not want the wound VAC. prefers wet to dry dressing. Denies any chest pain, nausea, vomiting, diarrhea No fever noted blood pressure controlled No adverse events reported to me by nursing staff Hospitalist Physical - Physical exam Narrative exam: VITAL SIGNS: Reviewed. GENERAL: The patient appeared well nourished and normally developed. Vital signs as documented. HEAD: No signs of head trauma. EYES: Pupils are equal. Extraocular motions intact. EARS: Hearing grossly intact. MOUTH: Oropharynx is normal. NECK: No adenopathy, no JVD. CHEST: Chest with clear breath sounds bilaterally. No wheezes, rales, or rhonchi. CARDIAC: Regular rate and rhythm. S1 and S2, without murmurs, gallops, or rubs. VASCULAR: No Edema. Carotid right lower extremity lymphedema, pulses palpable of the left lower extremity. ABDOMEN: Soft, without detectable tenderness. No sign of distention. No rebound or guarding, and no masses palpated. Bowel Sounds normal. MUSCULOSKELETAL: Good range of motion of all major joints. Extremities without clubbing, cyanosis or edema. NEUROLOGIC EXAM: Alert and oriented x 3. No focal sensory or strength deficits. Speech normal. Follows commands. PSYCHIATRIC: Mood normal. SKIN: Right leg lymphedema with warm tenderness, right medial upper leg s/p I/ D wound vac in place - Constitutional Vitals: Temp Pulse Resp BP Pulse Ox 99.1 F 81 18 135/88 97 06/13/16 08:00 06/13/16 08:00 06/13/16 08:00 06/13/16 08:00 06/12/16 14:35 General appearance: Present: no acute distress, well-nourished Results - Labs CBC & Chem 7: 06/13/16 04:45 06/13/16 04:45 Labs: Laboratory Last Values WBC 11.8 K/mm3 (4.5-11.0) H 06/13/16 04:45 RBC 3.39 M/mm3 (3.65-5.03) L 06/13/16 04:45 Hgb 10.5 gm/dl (11.8-15.2) L 06/13/16 04:45 Hct 32.2 % (35.5-45.6) L 06/13/16 04:45 MCV 95 fl (84-94) H 06/13/16 04:45 MCH 31 pg (28-32) 06/13/16 04:45 MCHC 33 % (32-34) 06/13/16 04:45 RDW 13.5 % (13.2-15.2) 06/13/16 04:45 Plt Count 451 K/mm3 (140-440) H 06/13/16 04:45 Lymph % (Auto) 8.0 % (13.4-35.0) L 06/09/16 04:14 [place] % (Auto) 7.9 % (0.0-7.3) H 06/09/16 04:14 Eos % (Auto) 0.1 % (0.0-4.3) 06/09/16 04:14 Baso % (Auto) 0.3 % (0.0-1.8) 06/09/16 04:14 Lymph # 1.1 K/mm3 (1.2-5.4) L 06/09/16 04:14 [place] # 1.1 K/mm3 (0.0-0.8) H 06/09/16 04:14 Eos # 0.0 K/mm3 (0.0-0.4) 06/09/16 04:14 Baso # 0.0 K/mm3 (0.0-0.1) 06/09/16 04:14 Add Manual Diff Complete 06/07/16 11:07 Total Counted TNR 06/07/16 11:07 Seg Neutrophils % 83.7 % (40.0-70.0) H 06/09/16 04:14 Seg Neuts % (Manual) TNR 06/07/16 11:07 Band Neutrophils % TNR 06/07/16 11:07 Lymphocytes % (Manual) TNR 06/07/16 11:07 Reactive Lymphs % (Man) TNR 06/07/16 11:07 Monocytes % (Manual) TNR 06/07/16 11:07 Eosinophils % (Manual) TNR 06/07/16 11:07 Basophils % (Manual) TNR 06/07/16 11:07 Metamyelocytes % TNR 06/07/16 11:07 Myelocytes % TNR 06/07/16 11:07 Promyelocytes % TNR 06/07/16 11:07 Blast Cells % TNR 06/07/16 11:07 Nucleated RBC % TNR 06/07/16 11:07 Seg Neutrophils # 11.2 K/mm3 (1.8-7.7) H 06/09/16 04:14 Seg Neutrophils # Man TNR 06/07/16 11:07 Band Neutrophils # TNR 06/07/16 11:07 Lymphocytes # (Manual) TNR 06/07/16 11:07 Abs React Lymphs (Man) TNR 06/07/16 11:07 Monocytes # (Manual) TNR 06/07/16 11:07 Eosinophils # (Manual) TNR 06/07/16 11:07 Basophils # (Manual) TNR 06/07/16 11:07 Metamyelocytes # TNR 06/07/16 11:07 Myelocytes # TNR 06/07/16 11:07 Promyelocytes # TNR 06/07/16 11:07 Blast Cells # TNR 06/07/16 11:07 WBC Morphology TNR 06/07/16 11:07 Hypersegmented Neuts TNR 06/07/16 11:07 Hyposegmented Neuts TNR 06/07/16 11:07 Hypogranular Neuts TNR 06/07/16 11:07 Hypersegmented Polys TNR 06/07/16 11:07 Smudge Cells TNR 06/07/16 11:07 Toxic Granulation TNR 06/07/16 11:07 Toxic Vacuolation TNR 06/07/16 11:07 Dohle Bodies TNR 06/07/16 11:07 Pelger-Huet Anomaly TNR 06/07/16 11:07 Maryann Rods TNR 06/07/16 11:07 Platelet Estimate TNR 06/07/16 11:07 Clumped Platelets TNR 06/07/16 11:07 Plt Clumps, EDTA TNR 06/07/16 11:07 Large Platelets TNR 06/07/16 11:07 Giant Platelets TNR 06/07/16 11:07 Platelet Satelliting TNR 06/07/16 11:07 Plt Morphology Comment TNR 06/07/16 11:07 RBC Morphology TNR 06/07/16 11:07 Dimorphic RBCs TNR 06/07/16 11:07 Polychromasia TNR 06/07/16 11:07 Hypochromasia TNR 06/07/16 11:07 Poikilocytosis TNR 06/07/16 11:07 Basophilic Stippling TNR 06/07/16 11:07 Anisocytosis TNR 06/07/16 11:07 Microcytosis TNR 06/07/16 11:07 Macrocytosis TNR 06/07/16 11:07 Spherocytes Not Reportable 06/07/16 11:07 Pappenheimer Bodies Not Reportable 06/07/16 11:07 Sickle Cells Not Reportable 06/07/16 11:07 Target Cells Not Reportable 06/07/16 11:07 Tear Drop Cells Not Reportable 06/07/16 11:07 Ovalocytes Not Reportable 06/07/16 11:07 Helmet Cells Not Reportable 06/07/16 11:07 Cruz-Wayland Bodies TNR 06/07/16 11:07 Weems Rings TNR 06/07/16 11:07 Zuri Cells TNR 06/07/16 11:07 Bite Cells TNR 06/07/16 11:07 Crenated Cell TNR 06/07/16 11:07 Elliptocytes Not Reportable 06/07/16 11:07 Acanthocytes (Spur) Not Reportable 06/07/16 11:07 Rouleaux TNR 06/07/16 11:07 Hemoglobin C Crystals TNR 06/07/16 11:07 Schistocytes TNR 06/07/16 11:07 Malaria parasites TNR 06/07/16 11:07 Hugo Bodies TNR 06/07/16 11:07 Hem Pathologist Commnt No 06/07/16 11:07 Sodium 135 mmol/L (137-145) L 06/13/16 04:45 Potassium 3.8 mmol/L (3.6-5.0) 06/13/16 04:45 Chloride 97.6 mmol/L (98-107) L 06/13/16 04:45 Carbon Dioxide 22 mmol/L (22-30) 06/13/16 04:45 Anion Gap 19 mmol/L 06/13/16 04:45 BUN 4 mg/dL (9-20) L 06/13/16 04:45 Creatinine 0.3 mg/dL (0.8-1.5) L 06/13/16 04:45 Estimated GFR > 60 ml/min 06/13/16 04:45 BUN/Creatinine Ratio 13.33 % 06/13/16 04:45 Glucose 245 mg/dL (75-100) H 06/13/16 04:45 POC Glucose 205 (70-105) H 06/13/16 11:07 Lactic Acid 0.8 mmol/L (0.7-2.0) 06/08/16 14:08 Calcium 8.6 mg/dL (8.4-10.2) 06/13/16 04:45 Urine Color Yellow (Yellow) 06/07/16 18:37 Urine Turbidity Clear (Clear) 06/07/16 18:37 Urine pH 6.0 (5.0-7.0) 06/07/16 18:37 Ur Specific [place] 1.030 (1.003-1.030) 06/07/16 18:37 Urine Protein <15 mg/dl mg/dL (Negative) 06/07/16 18:37 Urine Glucose (UA) >=500 mg/dL (Negative) 06/07/16 18:37 Urine Ketones 80 mg/dL (Negative) 06/07/16 18:37 Urine Blood Neg (Negative) 06/07/16 18:37 Urine Nitrite Neg (Negative) 06/07/16 18:37 Urine Bilirubin Neg (Negative) 06/07/16 18:37 Urine Urobilinogen 2.0 mg/dL (<2.0) 06/07/16 18:37 Ur Leukocyte Esterase Neg (Negative) 06/07/16 18:37 Urine WBC (Auto) 1.0 /HPF (0.0-6.0) 06/07/16 18:37 Urine RBC (Auto) 2.0 /HPF (0.0-6.0) 06/07/16 18:37 U Epithel Cells (Auto) 1.0 /HPF (0-13.0) 06/07/16 18:37 Urine Bacteria (Auto) 1+ /HPF (Negative) 06/07/16 18:37 Urine Mucus Few /HPF 06/07/16 18:37 Vancomycin Trough 9.3 ug/mL (5.0-20.0) 06/12/16 11:50
[2016-06-13] MEDS: XANAX PO PRN (14:23)
[2016-06-13] MEDS ORDERED: LEVEMIR SUB-Q SCH (22:00)
[2016-06-14] MEDS: NOVOLOG SUB-Q SCH ×3 (00:43→13:20)
[2016-06-14] MEDS: PERCOCET 5/325 PO PRN ×2 (02:03→12:22)
[2016-06-14] MEDS: XANAX PO PRN (02:03)
[2016-06-14] MEDS: VANCOMYCIN 1,750 MG in NACL 0.9% 500 ML 500 ML IV SCH ×2 (05:16→10:18)
--- NOTE | 2016-06-14 07:53 | Discharge Summary ---
Providers - Providers Date of Admission: 06/07/16 16:30 Date of discharge: 06/14/16 Attending physician: BECKA DON MD 06/07/16 16:32 Physical Therapy Evaluation and Treat [CONS] Routine Comment: Reason For Exam: weakness 06/09/16 13:38 Consult to Wound/ET Nurse [CONS] Urgent Reason For Exam: wound eval 06/10/16 11:23 Consult to Physician [CONS] Routine Consulting Provider: GILMAR KING Reason For Exam: Evaluate for PVD, severe right leg pains Place consult to:: Dr. Leonel King Notified:: Answering Services Phone number called:: [phone] Was contact made?: Yes If yes, spoke with:: THOM Hutchinson called:: 11:46 Comment:: OBED SCHUSTER 06/11/16 09:14 Consult to Physician [CONS] Routine Consulting Provider: SHAYE MEREDITH Reason For Exam: right upper thigh abscess Place consult to:: Romulo REBOLLEDO Notified:: [facility]SWERING [facility] Phone number called:: [phone] Was contact made?: Yes If yes, spoke with:: TIANNA Hutchinson called:: 09:27 Comment:: OBED NOTIFIED Primary care physician: ALEK COLMENARES Hospitalization Reason for admission: leg abscess Condition: Stable Hospital course: Patient is a 30-year-old man with a history of hypertension, tobacco dependency , type 2 diabetes mellitus and 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 He was diagnosed with right leg cellulitis with sepsis. She was seen by both vascular surgery. He proceeded to have an incision and drainage. Surgical Cultures were growing but the hemolytic strep she was started on Augmentin for 14 days blood cultures were unremarkable. I also instructed patient on diabetes management. Medications were ordered including glucometer and glucometer supplies. Also instructed patient on need to see vascular outpatient. Information was provided to the patient detail by myself. A wound VAC was obtained for the patient. An ultrasound done during admission did not demonstrate any evidence of deep vein thrombosis. Weight loss modalities was discussed in detail patient verbalized understanding Discharge diagnosis -Right leg abscess cellulitis -Sepsis due to right leg cellulitis-present on admission -Uncontrolled diabetes mellitus with hyperglycemia -Morbid Obesity BMI 46.0 Disposition: DC/TX HOME UNDER HOME HEALTH Time spent for discharge: 35 mins Core Measure Documentation - Palliative Care Palliative Care/ Comfort Measures: Not Applicable - Core Measures Any of the following diagnoses?: none - VTE Discharge Requirements Deep Vein Thrombosis/Pulmonary Embolism Present on Admission: No Exam - Physical Exam Narrative exam: VITAL SIGNS: Reviewed. GENERAL: The patient appeared well nourished and normally developed. Vital signs as documented. HEAD: No signs of head trauma. EYES: Pupils are equal. Extraocular motions intact. EARS: Hearing grossly intact. MOUTH: Oropharynx is normal. NECK: No adenopathy, no JVD. CHEST: Chest with clear breath sounds bilaterally. No wheezes, rales, or rhonchi. CARDIAC: Regular rate and rhythm. S1 and S2, without murmurs, gallops, or rubs. VASCULAR: No Edema. Carotid right lower extremity lymphedema, pulses palpable of the left lower extremity. ABDOMEN: Soft, without detectable tenderness. No sign of distention. No rebound or guarding, and no masses palpated. Bowel Sounds normal. MUSCULOSKELETAL: Good range of motion of all major joints. Extremities without clubbing, cyanosis or edema. NEUROLOGIC EXAM: Alert and oriented x 3. No focal sensory or strength deficits. Speech normal. Follows commands. PSYCHIATRIC: Mood normal. SKIN: Right leg lymphedema with warm tenderness, right medial upper leg s/p I/ D wound vac in place - Constitutional Vitals: Temp Pulse Resp BP Pulse Ox 98.9 F 84 18 138/70 98 06/13/16 15:00 06/13/16 15:00 06/13/16 15:00 06/13/16 15:00 06/13/16 15:00 Plan Activity: advance as tolerated, fall precautions Diet: diabetic Wound: per wound nurse instructions Special Instructions: home health RN Additional Instructions: Follow up at wound care clinic as directed. Must have yearly EYE AND FOOT EXAMS BY OPTHAMOLOGY AND DIRECTOR OF RESEARCH AND DEVELOPMENT RESPECTIVELY Follow up with: PRIMARY CARE, [Referring] - 3-5 Days Prescriptions: Amoxicillin/K Clav Tab [Augmentin 875 mg] 1 tab PO Q12HR 14 Days Insulin NPH/Regular [Novolin 70/30] 20 unit SQ BIDDIAB 30 Days Nicotine [Habitrol] 21 mg TD QDAY #30 patch oxyCODONE /ACETAMINOPHEN [Percocet 5/325 mg] 1 tab PO Q4H PRN #20 tablet PRN Reason: Pain, Moderate (4-6) Other Discharge Orders: Glucometer (Amb) Location: Determined By Patient Glucometer supplies[Amb] Location: Determined By Patient
[2016-06-14] MEDS: MORPHINE IV PRN (08:47)
[2016-06-14 09:04] VITALS: BP 159/92
[2016-06-14] MEDS: LOVENOX SUB-Q SCH (10:14)
[2016-06-14] MEDS: HABITROL TD SCH (10:15)
[2016-06-14] MEDS ORDERED: LEVEMIR SUB-Q SCH (22:00)
== END 2016-06-14 13:50 | disposition home health service (06) | DRG 854 ==
LOC: ED 09:19 → 3A 16:30
PROVIDERS: ADMIT Internal Medicine; ATTEND Internal Medicine
PROC: 0JBN0ZZ Excision of Right Lower Leg Subcutaneous Tissue and Fascia, Open Approach (ICD-10-PCS; principal; 2016-06-12)
PROC: 0J9N0ZZ Drainage of Right Lower Leg Subcutaneous Tissue and Fascia, Open Approach (ICD-10-PCS; 2016-06-12)
DX: A41.9 Sepsis, unspecified organism (principal); L02.415 Cutaneous abscess of right lower limb; L03.115 Cellulitis of right lower limb; Z68.42 Body mass index [BMI] 45.0-49.9, adult; R65.10 Systemic inflammatory response syndrome (SIRS) of non-infectious origin without acute organ dysfunction; E11.65 Type 2 diabetes mellitus with hyperglycemia; E66.01 Morbid (severe) obesity due to excess calories; I89.0 Lymphedema, not elsewhere classified; I10 Essential (primary) hypertension; F17.200 Nicotine dependence, unspecified, uncomplicated; Z88.8 Allergy status to other drugs, medicaments and biological substances; Z91.018 Allergy to other foods; Z83.3 Family history of diabetes mellitus; Z82.49 Family history of ischemic heart disease and other diseases of the circulatory system
CPT/HCPCS: 36415; 80048; 80202; 81001; 82140; 82962; 83036; 85007; 85025; 85027; 87040; 87075; 87116; 88304; 88307; 96365; 96375; 96376; 99406; J0690; J1100; J1170; J1650; J1815; J1818; J2270; J2405; J2704; J2710; J3010; J3370; J7030; J7040

== ENCOUNTER 2016-06-22 10:19 | Outpatient (CLI) | payer MEDICAID ==
[2016-06-22] MEDS ORDERED: XYLOCAINE TOPICAL 4% TP ONE (11:15)
== END 2016-06-22 10:20 | disposition home or self-care (01) ==
LOC: WOUND 10:19
PROVIDERS: ATTEND Nurse Practitioner
DX: I87.321 Chronic venous hypertension (idiopathic) with inflammation of right lower extremity (principal); E11.622 Type 2 diabetes mellitus with other skin ulcer; L97.811 Non-pressure chronic ulcer of other part of right lower leg limited to breakdown of skin; Q82.0 Hereditary lymphedema; E08.59 Diabetes mellitus due to underlying condition with other circulatory complications; L08.89 Other specified local infections of the skin and subcutaneous tissue
CPT/HCPCS: 99215; G0463

== ENCOUNTER 2016-07-07 08:59 | Outpatient (CLI) | payer MEDICAID ==
[2016-07-07] MEDS ORDERED: NACL 0.9% IR ONE (09:21)
[2016-07-07] MEDS ORDERED: XYLOCAINE TOPICAL 4% TP ONE ×2 (09:21→10:27)
== END 2016-07-07 09:00 | disposition home or self-care (01) ==
LOC: WOUND 08:59
PROVIDERS: ATTEND Podiatrist
DX: E11.622 Type 2 diabetes mellitus with other skin ulcer (principal); L97.811 Non-pressure chronic ulcer of other part of right lower leg limited to breakdown of skin; I87.321 Chronic venous hypertension (idiopathic) with inflammation of right lower extremity; Q82.0 Hereditary lymphedema; E66.9 Obesity, unspecified; F17.200 Nicotine dependence, unspecified, uncomplicated; Z72.89 Other problems related to lifestyle
CPT/HCPCS: 97606

== ENCOUNTER 2016-07-14 09:51 | Outpatient (CLI) | payer MEDICAID ==
[2016-07-14] MEDS ORDERED: XYLOCAINE TOPICAL 4% TP ONE ×2 (10:21→10:41)
== END 2016-07-14 09:52 | disposition home or self-care (01) ==
LOC: WOUND 09:51
PROVIDERS: ATTEND Podiatrist
DX: I87.331 Chronic venous hypertension (idiopathic) with ulcer and inflammation of right lower extremity (principal); L97.813 Non-pressure chronic ulcer of other part of right lower leg with necrosis of muscle; E66.9 Obesity, unspecified; Z68.41 Body mass index [BMI] 40.0-44.9, adult; K21.9 Gastro-esophageal reflux disease without esophagitis; I89.0 Lymphedema, not elsewhere classified; F41.9 Anxiety disorder, unspecified; F17.200 Nicotine dependence, unspecified, uncomplicated; Z72.89 Other problems related to lifestyle
CPT/HCPCS: 82962; 97606

== ENCOUNTER 2018-03-09 04:07 | Emergency (ER) | payer MEDICAID ==
[2018-03-09 05:17] VITALS: BP 154/94
[2018-03-09 07:18] LABS: Basophils # (Auto) 0.1 K/mm3 (0.0-0.1); Basophils % (Auto) 0.6 % (0.0-1.8); Eosinophils % (Auto) 0.5 % (0.0-4.3); Hematocrit 41.7 % (35.5-45.6); Hemoglobin 14.2 gm/dl (11.8-15.2); Lymphocytes # (Auto) 2.7 K/mm3 (1.2-5.4); Lymphocytes % (Auto) 28.7 % (13.4-35.0); Mean Corpuscular HGB Conc 34 % (32-34); Mean Corpuscular Volume 94 fl (84-94); Monocytes # (Auto) 0.8 K/mm3 (0.0-0.8); Monocytes % (Auto) 8.9 % (0.0-7.3); Platelet Count 269 K/mm3 (140-440); Red Blood Count 4.44 M/mm3 (3.65-5.03); Red Cell Distribution Width 12.9 % (13.2-15.2)
[2018-03-09] MEDS ORDERED: NORCO 5/325 PO ONE (07:33)
[2018-03-09 07:34] LABS: Alanine Aminotransferase 17 units/L (7-56); Albumin 3.9 g/dL (3.9-5); BUN/Creatinine Ratio 16; Blood Urea Nitrogen 11 mg/dL (9-20); Hemolysis Index 14
--- NOTE | 2018-03-09 07:43 | Emergency Department Report ---
Abscess Boil HPI - HPI Chief Complaint: Skin/Abscess/Foreign Body Stated Complaint: PAIN, INFECTION ANAL AREA Time Seen by Provider: 03/09/18 07:32 Duration: >1 Week Location: Perianal Severity: Mild History: Yes Pain (SEE ALLERGIES), Yes Purulent Drainage, Yes Previous History (THIS IS CHRONIC PT STATES HE HAS BEEN TOLD TO SEE SURGEON BUT HAS NOT), No Fever, No Numbness, No Foreign Body, No Insect Bite HPI: 32 YO OBESE AA MALE WHO COMES TO ER WITH PAIN NEAR RECTUM FROM A/C ABSCESS. HE HAS BEEN TREATED FOR THIS AND A LEG ABSCESS MANY TIMES. HE HAS LYMPHEDEMA. ALTHOUGH HE DENIES DM HE HAS BEEN GIVEN INSULIN RX IN THE PAST. Home Medications: Previous Rx's Medication Instructions Recorded Last Taken Type Insulin NPH/Regular [NovoLIN 70/30] 22 unit SQ BIDDIAB 30 Days ml 01/02/18 Unknown Rx Acetaminophen/Codeine [Tylenol 1 tab PO Q6H PRN #10 tab 03/09/18 Unknown Rx /Codeine # 3 tab] Clindamycin [Clindamycin CAP] 300 mg PO Q6H #40 capsule 03/09/18 Unknown Rx Allergies/Adverse Reactions: Allergies Allergy/AdvReac Type Severity Reaction Status Date / Time acetaminophen Allergy Rash Verified 05/26/15 16:02 [From Darvocet-N] ketorolac tromethamine Allergy Rash Verified 05/26/15 16:02 [From Toradol] propoxyphene napsylate Allergy Rash Verified 05/26/15 16:02 [From Darvocet-N] tomato Allergy Itching Verified 05/26/15 16:02 tramadol Allergy Itching Verified 05/26/15 16:02 ED Review of Systems ROS: Stated complaint: PAIN, INFECTION ANAL AREA Other details as noted in HPI Comment: All other systems reviewed and negative Constitutional: denies: chills Eyes: denies: eye pain ENT: denies: throat pain Respiratory: denies: orthopnea Cardiovascular: denies: palpitations Endocrine: denies: intolerance to cold Gastrointestinal: denies: nausea Genitourinary: denies: urgency Musculoskeletal: denies: back pain Skin: lesions Neurological: denies: weakness Psychiatric: denies: depression Hematological/Lymphatic: denies: as per HPI ED Past Medical Hx - Past Medical History Hx Hypertension: Yes Hx CVA: No Hx Heart Attack/AMI: No Hx Congestive Heart Failure: No Hx Diabetes: (says not diabetic, just sugar always checked at wrong time) Hx Deep Vein Thrombosis: No Hx Pulmonary Embolism: No Hx GERD: Yes Hx Liver Disease: No Hx Renal Disease: No Hx Sickle Cell Disease: No Hx Arthritis: No Hx Headaches / Migraines: No Hx Seizures: No Hx Kidney Stones: No Hx Psychiatric Treatment: No Hx Asthma: No Hx COPD: No Hx Tuberculosis: No Hx Dementia: No Hx HIV: No Additional medical history: Heart murmur. LYMPHEDEMA. OBESITY - Surgical History Hx Coronary Stent: No Hx Open Heart Surgery: No Hx Internal Defibrillator: No Hx Cholecystectomy: No Hx Appendectomy: No Hx Breast Surgery: No Additional Surgical History: Right lower extremity abscess I&D with wound VAC placement - Social History Smoking Status: Current Every Day Smoker Substance Use Type: None - Medications Home Medications: Home Medications Medication Instructions Recorded Confirmed Last Taken Type Insulin NPH/Regular [NovoLIN 70/30] 22 unit SQ BIDDIAB 30 Days ml 01/02/18 Unknown Rx Acetaminophen/Codeine [Tylenol 1 tab PO Q6H PRN #10 tab 03/09/18 Unknown Rx /Codeine # 3 tab] Clindamycin [Clindamycin CAP] 300 mg PO Q6H #40 capsule 03/09/18 Unknown Rx ED Abscess Boil Physical Exam - Exam General: Vital signs noted. No distress. Alert and acting appropriately. Size: 3 cm Exam: Yes Tenderness, Yes Surrounding Cellulites/Erythema, Yes Normal Neurologic Exam, Yes Normal Circulation, No Fluctuance, No Lymphangitis, No Crepitation, No Heart Murmur Exam: ABSCESS OF L BUTTOCK. DRAINING PURULENT DRAINAGE. NO I/D. PT IS OBESE AND THE AREA IS LIKELY NOT KEPT CLEAN IDEAL. DISCUSSED WITH PT SURGICAL FOLLOW UP SINCE THIS KEEPS RETURNING ED Course Vital Signs 03/09/18 05:10 Temperature 98.5 F Pulse Rate 93 H Respiratory 18 Rate Blood Pressure 154/94 O2 Sat by Pulse 98 Oximetry - Reevaluation(s) Reevaluation #1: 03/09/18 08:18 PT MOANING IN PAIN WHEN PROVIDER IN ROOM BUT AMBULATING WITHOUT DIFFICULTY WHEN IN HALLS. VSS NON TOXIC NO FEVER WBC NORMAL Critical care attestation.: If time is entered above; I have spent that time in minutes in the direct care of this critically ill patient, excluding procedure time. ED Medical Decision Making - Lab Data Result diagrams: 03/09/18 07:05 03/09/18 07:05 - Medical Decision Making NO FEVER WBC NORMAL HYPERGLYCEMIA PT DENIES DM BUT CHART INDICATES HE HAS BEEN GIVEN INSULIN FOR HOME SO I SUSPECT HE HAS BEEN DX AND IS IN DENIAL OR DOES NOT UNDERSTAND. WE HAVE DISCUSSED THIS A CONTRIBUTORY REASON FOR HIS A/C ABSCESS. OBESITY ALSO DISCUSSED FOR IT IS MAKING IT HARD TO CLEAN THAT AREA. DC HOME WITH CLINDA AND PAIN MED DISCUSSED FOLLOW UP AND ONGOING CARE. Labs 03/09/18 03/09/18 07:05 07:05 WBC 9.3 RBC 4.44 Hgb 14.2 Hct 41.7 MCV 94 MCH 32 MCHC 34 RDW 12.9 L Plt Count 269 Lymph % (Auto) 28.7 [place] % (Auto) 8.9 H Eos % (Auto) 0.5 Baso % (Auto) 0.6 Lymph # 2.7 [place] # 0.8 Eos # 0.0 Baso # 0.1 Seg Neutrophils % 61.3 Seg Neutrophils # 5.7 Sodium 133 L Potassium 3.7 Chloride 95.9 L Carbon Dioxide 24 Anion Gap 17 BUN 11 Creatinine 0.7 L Estimated GFR > 60 BUN/Creatinine Ratio 16 Glucose 256 H Calcium 9.0 Total Bilirubin 0.60 AST 12 ALT 17 Alkaline Phosphatase 93 C-Reactive Protein 2.10 H Total Protein 7.3 Albumin 3.9 Albumin/Globulin Ratio 1.1 - Differential Diagnosis RO PERIANAL ABSCESS V SIMPLE ABSCESS ED Disposition Clinical Impression: Hyperglycemia, Skin abscess, Non-compliance Disposition: DC-01 TO HOME OR SELFCARE Is pt being admited?: No Does the pt Need Aspirin: No Condition: Stable Instructions: Abscess (ED) Additional Instructions: DIABETIC DIET TAKE YOUR INSULIN AND CHECK BLOOD SUGAR YOU HAVE BEEN INSTRUCTED SOAK IN WARM WATER WITH EPSOM SALTS 3 TIMES PER DAY FOR 20 MINUTES EACH TIME MEDS ORDERED TODAY YOU WILL NEED TO SEE THE GENERAL SURGEON WE DISCUSSED IT WILL KEEP COMING BACK IF YOU DO NOT MAKE AN APPOINTMENT FOR NEXT WEEK FOLLOW UP WITH YOUR PRIMARY FOR ADDITIONAL PAIN MEDS DUE TO YOUR ALLERGIES WE ARE LIMITED WITH OPTIONS ACTIVITY TOLERATED HYDRATE WELL WITH WATER Prescriptions: Acetaminophen/Codeine [Tylenol /Codeine # 3 tab] 1 tab PO Q6H PRN #10 tab PRN Reason: Pain , Severe (7-10) Clindamycin [Clindamycin CAP] 300 mg PO Q6H #40 capsule Referrals: EVETTE SANCHEZ MD [Primary Care Provider] - 3-5 Days Time of Disposition: 07:45
== END 2018-03-09 08:17 | disposition home or self-care (01) ==
LOC: ED 04:07
DX: E11.65 Type 2 diabetes mellitus with hyperglycemia (principal); K61.0 Anal abscess; I10 Essential (primary) hypertension; K21.9 Gastro-esophageal reflux disease without esophagitis; F17.200 Nicotine dependence, unspecified, uncomplicated; Z88.6 Allergy status to analgesic agent; Z88.8 Allergy status to other drugs, medicaments and biological substances; Z91.018 Allergy to other foods
CPT/HCPCS: 36415; 80053; 85025; 86140; 99283

== ENCOUNTER 2018-08-22 10:58 | Emergency (ER) | payer MEDICAID ==
[2018-08-22 11:07] VITALS: BP 171/109
--- NOTE | 2018-08-22 12:19 | Emergency Department Report ---
ED General Adult HPI - General Chief complaint: Pain General Stated complaint: RT SIDE PAIN (NECK DOWN) Time Seen by Provider: 08/22/18 11:47 Source: patient Mode of arrival: Ambulatory Limitations: No Limitations - History of Present Illness Initial comments: Patient presents to the emergency department with a chief complaint of body pain. Patient has history of lymphedema of the right leg for the last 16 years. Patient also complains of having multiple traumas in the past which have resulted in him having arthritis. The patient states he used to go to a pain management clinic but has not been able to go in the last couple months due to payment issues. -: Gradual Severity scale (0 -10): 5 Quality: aching Consistency: constant Improves with: none Worsens with: movement Associated Symptoms: denies other symptoms Treatments Prior to Arrival: none - Related Data Previous Rx's Medication Instructions Recorded Last Taken Type Insulin NPH/Regular [NovoLIN 70/30] 22 unit SQ BIDDIAB 30 Days ml 01/02/18 Unknown Rx Acetaminophen/Codeine [Tylenol 1 tab PO Q6H PRN #10 tab 03/09/18 Unknown Rx /Codeine # 3 tab] Clindamycin [Clindamycin CAP] 300 mg PO Q6H #40 capsule 03/09/18 Unknown Rx HYDROcodone/APAP 5-325 [[place] 1 each PO Q6HR PRN #12 tablet 08/22/18 Unknown Rx 5/325] Allergies Allergy/AdvReac Type Severity Reaction Status Date / Time acetaminophen Allergy Rash Verified 08/22/18 11:00 [From Darvocet-N] ketorolac tromethamine Allergy Rash Verified 08/22/18 11:00 [From Toradol] propoxyphene napsylate Allergy Rash Verified 08/22/18 11:00 [From Darvocet-N] tomato Allergy Itching Verified 08/22/18 11:00 tramadol Allergy Itching Verified 08/22/18 11:00 ED Review of Systems ROS: Stated complaint: RT SIDE PAIN (NECK DOWN) Other details as noted in HPI Comment: All other systems reviewed and negative Constitutional: denies: chills, fever Eyes: denies: eye pain, eye discharge, vision change ENT: denies: ear pain, throat pain Respiratory: denies: cough, shortness of breath, wheezing Cardiovascular: denies: chest pain, palpitations Endocrine: no symptoms reported Gastrointestinal: denies: abdominal pain, nausea, diarrhea Genitourinary: denies: urgency, dysuria Musculoskeletal: denies: back pain, joint swelling, arthralgia Skin: denies: rash, lesions Neurological: denies: headache, weakness, paresthesias Psychiatric: denies: anxiety, depression Hematological/Lymphatic: denies: easy bleeding, easy bruising ED Past Medical Hx - Past Medical History Hx Hypertension: Yes Hx CVA: No Hx Heart Attack/AMI: No Hx Congestive Heart Failure: No Hx Diabetes: (says not diabetic, just sugar always checked at wrong time) Hx Deep Vein Thrombosis: No Hx Pulmonary Embolism: No Hx GERD: Yes Hx Liver Disease: No Hx Renal Disease: No Hx Sickle Cell Disease: No Hx Arthritis: No Hx Headaches / Migraines: No Hx Seizures: No Hx Kidney Stones: No Hx Psychiatric Treatment: No Hx Asthma: No Hx COPD: No Hx Tuberculosis: No Hx Dementia: No Hx HIV: No Additional medical history: Heart murmur. LYMPHEDEMA. OBESITY - Surgical History Past Surgical History?: No Hx Coronary Stent: No Hx Open Heart Surgery: No Hx Internal Defibrillator: No Hx Cholecystectomy: No Hx Appendectomy: No Hx Breast Surgery: No Additional Surgical History: Right lower extremity abscess I&D with wound VAC placement - Social History Smoking Status: Current Every Day Smoker Substance Use Type: Alcohol, Marijuana - Medications Home Medications: Home Medications Medication Instructions Recorded Confirmed Last Taken Type Insulin NPH/Regular [NovoLIN 70/30] 22 unit SQ BIDDIAB 30 Days ml 01/02/18 Unknown Rx Acetaminophen/Codeine [Tylenol 1 tab PO Q6H PRN #10 tab 03/09/18 Unknown Rx /Codeine # 3 tab] Clindamycin [Clindamycin CAP] 300 mg PO Q6H #40 capsule 03/09/18 Unknown Rx HYDROcodone/APAP 5-325 [[place] 1 each PO Q6HR PRN #12 tablet 08/22/18 Unknown Rx 5/325] ED Physical Exam - General Limitations: No Limitations General appearance: alert, in no apparent distress - Head Head exam: Present: atraumatic, normocephalic - Eye Eye exam: Present: normal appearance - ENT ENT exam: Present: mucous membranes moist - Neck Neck exam: Present: normal inspection - Respiratory Respiratory exam: Present: normal lung sounds bilaterally. Absent: respiratory distress - Cardiovascular Cardiovascular Exam: Present: regular rate, normal rhythm. Absent: systolic murmur, diastolic murmur, rubs, gallop - GI/Abdominal GI/Abdominal exam: Present: soft, normal bowel sounds - Rectal Rectal exam: Present: deferred - Extremities Exam Extremities exam: Present: normal inspection, other (the patient has lymphedema of the right lower leg) - Back Exam Back exam: Present: normal inspection - Neurological Exam Neurological exam: Present: alert, oriented X3, CN II-XII intact. Absent: motor sensory deficit - Psychiatric Psychiatric exam: Present: normal affect, normal mood - Skin Skin exam: Present: warm, dry, intact, normal color. Absent: rash ED Course Vital Signs 08/22/18 11:05 Temperature 98.1 F Pulse Rate 81 Blood Pressure 171/109 ED Medical Decision Making - Medical Decision Making Discussed plan of care with patient Critical care attestation.: If time is entered above; I have spent that time in minutes in the direct care of this critically ill patient, excluding procedure time. ED Disposition Clinical Impression: Lymphedema, Body aches Disposition: TO HOME OR SELFCARE Is pt being admited?: No Does the pt Need Aspirin: No Condition: Stable Instructions: Lymphedema (ED) Additional Instructions: return if worse Prescriptions: HYDROcodone/APAP 5-325 [[place] 5/325] 1 each PO Q6HR PRN #12 tablet PRN Reason: Pain Referrals: ALEK COLMENARES MD [Primary Care Provider] - 3-5 Days [facility] [Outside] - 3-5 Days [facility] [Provider Group] - 3-5 Days [facility] [Provider Group] - 3-5 Days [facility] [Provider Group] - 3-5 Days Time of Disposition: 12:20
== END 2018-08-22 12:26 | disposition home or self-care (01) ==
LOC: ED 10:58
DX: I89.0 Lymphedema, not elsewhere classified (principal); M79.18 Myalgia, other site; I10 Essential (primary) hypertension; F17.200 Nicotine dependence, unspecified, uncomplicated; F12.10 Cannabis abuse, uncomplicated
CPT/HCPCS: 99282

== ENCOUNTER 2018-08-31 03:25 | Emergency (ER) | payer MEDICAID ==
[2018-08-31 03:59] VITALS: BP 129/73
[2018-08-31 04:02] LABS: Basophils % (Auto) 0.4 % (0.0-1.8); Eosinophils % (Auto) 0.3 % (0.0-4.3); Hematocrit 42.2 % (35.5-45.6); Hemoglobin 14.7 gm/dl (11.8-15.2); Lymphocytes # (Auto) 0.8 K/mm3 (1.2-5.4); Lymphocytes % (Auto) 6.5 % (13.4-35.0); Mean Corpuscular HGB Conc 35 % (32-34); Mean Corpuscular Volume 94 fl (84-94); Monocytes # (Auto) 0.8 K/mm3 (0.0-0.8); Monocytes % (Auto) 6.5 % (0.0-7.3); Platelet Count 243 K/mm3 (140-440); Red Blood Count 4.49 M/mm3 (3.65-5.03); Red Cell Distribution Width 12.7 % (13.2-15.2)
--- NOTE | 2018-08-31 04:12 | Emergency Department Report ---
ED General Adult HPI - General Chief complaint: Nausea/Vomiting/Diarrhea Stated complaint: NAUSEA AND VOMITING Time Seen by Provider: 08/31/18 03:57 Source: EMS Mode of arrival: Stretcher Limitations: No Limitations - History of Present Illness Initial comments: 33-year-old male with a history of lymphedema and hypertension as well as obesity presents complaining of nausea and vomiting since 3 this morning. Patient has had no fever. Patient was recently evaluated on 08/22/2018 for pain in the lower extremity and was discharged from emergency department. Patient is no longer in pain management. Patient denies any trauma to the extremity. Patient states he is currently not on any antibiotic therapy. Patient states that he noticed some redness to his right lower extremity as well. - Related Data Previous Rx's Medication Instructions Recorded Last Taken Type Insulin NPH/Regular [NovoLIN 70/30] 22 unit SQ BIDDIAB 30 Days ml 01/02/18 Unknown Rx Acetaminophen/Codeine [Tylenol 1 tab PO Q6H PRN #10 tab 03/09/18 Unknown Rx /Codeine # 3 tab] Clindamycin [Clindamycin CAP] 300 mg PO Q6H #40 capsule 03/09/18 Unknown Rx HYDROcodone/APAP 5-325 [[place] 1 each PO Q6HR PRN #12 tablet 08/22/18 Unknown Rx 5/325] Clindamycin [Clindamycin CAP] 300 mg PO Q6H 7 Days capsule 08/31/18 Unknown Rx Allergies Allergy/AdvReac Type Severity Reaction Status Date / Time acetaminophen Allergy Rash Verified 08/22/18 11:00 [From Darvocet-N] ketorolac tromethamine Allergy Rash Verified 08/22/18 11:00 [From Toradol] propoxyphene napsylate Allergy Rash Verified 08/22/18 11:00 [From Darvocet-N] tomato Allergy Itching Verified 08/22/18 11:00 tramadol Allergy Itching Verified 08/22/18 11:00 ED Review of Systems ROS: Stated complaint: NAUSEA AND VOMITING Other details as noted in HPI Constitutional: denies: chills, fever Eyes: denies: eye pain, eye discharge, vision change ENT: denies: ear pain, throat pain Respiratory: denies: cough, shortness of breath, wheezing Cardiovascular: denies: chest pain, palpitations Endocrine: no symptoms reported Gastrointestinal: denies: abdominal pain, nausea, diarrhea Genitourinary: denies: urgency, dysuria Musculoskeletal: arthralgia Skin: change in color Neurological: denies: headache, weakness, paresthesias Psychiatric: denies: anxiety, depression Hematological/Lymphatic: denies: easy bleeding, easy bruising ED Past Medical Hx - Past Medical History Previous Medical History?: Yes Hx Hypertension: Yes Hx CVA: No Hx Heart Attack/AMI: No Hx Congestive Heart Failure: No Hx Diabetes: (says not diabetic, just sugar always checked at wrong time) Hx Deep Vein Thrombosis: No Hx Pulmonary Embolism: No Hx GERD: Yes Hx Liver Disease: No Hx Renal Disease: No Hx Sickle Cell Disease: No Hx Arthritis: No Hx Headaches / Migraines: No Hx Seizures: No Hx Kidney Stones: No Hx Psychiatric Treatment: No Hx Asthma: No Hx COPD: No Hx Tuberculosis: No Hx Dementia: No Hx HIV: No Additional medical history: Heart murmur. LYMPHEDEMA. OBESITY - Surgical History Past Surgical History?: Yes Hx Coronary Stent: No Hx Open Heart Surgery: No Hx Internal Defibrillator: No Hx Cholecystectomy: No Hx Appendectomy: No Hx Breast Surgery: No Additional Surgical History: Right lower extremity abscess I&D with wound VAC placement - Social History Smoking Status: Current Some Day Smoker Substance Use Type: Alcohol, Marijuana - Medications Home Medications: Home Medications Medication Instructions Recorded Confirmed Last Taken Type Insulin NPH/Regular [NovoLIN 70/30] 22 unit SQ BIDDIAB 30 Days ml 01/02/18 Unknown Rx Acetaminophen/Codeine [Tylenol 1 tab PO Q6H PRN #10 tab 03/09/18 Unknown Rx /Codeine # 3 tab] Clindamycin [Clindamycin CAP] 300 mg PO Q6H #40 capsule 03/09/18 Unknown Rx HYDROcodone/APAP 5-325 [[place] 1 each PO Q6HR PRN #12 tablet 08/22/18 Unknown Rx 5/325] Clindamycin [Clindamycin CAP] 300 mg PO Q6H 7 Days capsule 08/31/18 Unknown Rx ED Physical Exam - General Limitations: No Limitations General appearance: alert, other (uncomfortable; mild distress) - Head Head exam: Present: atraumatic, normocephalic - Eye Eye exam: Present: normal appearance - ENT ENT exam: Present: mucous membranes moist - Neck Neck exam: Present: normal inspection - Respiratory Respiratory exam: Present: normal lung sounds bilaterally. Absent: respiratory distress - Cardiovascular Cardiovascular Exam: Present: regular rate, normal rhythm. Absent: systolic murmur, diastolic murmur, rubs, gallop - GI/Abdominal GI/Abdominal exam: Present: soft, normal bowel sounds - Rectal Rectal exam: Present: deferred - Extremities Exam Extremities exam: Present: normal inspection - Expanded Lower Extremity Exam Right Hip exam: Present: normal inspection Lower Leg exam: Present: tenderness (noted in right medial thigh; minimal erythema present in medial aspect of right thigh). Absent: deformity, dislocation - Back Exam Back exam: Present: normal inspection - Neurological Exam Neurological exam: Present: alert, oriented X3 - Psychiatric Psychiatric exam: Present: normal affect, normal mood - Skin Skin exam: Present: warm, dry, intact, normal color. Absent: rash ED Course Vital Signs 08/31/18 08/31/18 03:35 03:57 Temperature 97.7 F Pulse Rate 87 Respiratory 16 Rate Blood Pressure 129/73 O2 Sat by Pulse 96 Oximetry ED Medical Decision Making - Lab Data Result diagrams: 08/31/18 03:45 08/31/18 03:45 - Medical Decision Making I have a low suspicion for DVT in patient. Patient has long standing history of lymphedema. Minimal erythema noted in right medial thigh. Patient given Percocet, Zofran, and clindamycin therapy while in emergency department. Patient to be discharged. Patient has no fever. WBC is not greater than 14 K and erythema is not circumferential. patient has completed the norco therapy that was prescribed on 08/22/18. I believe patient can be treated as outpatietn with clindamycin therapy for mild cellulitis. - Differential Diagnosis Dehydration; Cellulitis; Critical care attestation.: If time is entered above; I have spent that time in minutes in the direct care of this critically ill patient, excluding procedure time. ED Disposition Clinical Impression: Cellulitis, Lymphedema Disposition: - TO HOME OR SELFCARE Is pt being admited?: No Does the pt Need Aspirin: No Condition: Stable Prescriptions: Clindamycin [Clindamycin CAP] 300 mg PO Q6H 7 Days capsule Time of Disposition: 05:41 Print Language: NORTHER[place] IRISH
[2018-08-31] MEDS ORDERED: ZOFRAN ODT PO ONE (04:13)
[2018-08-31] MEDS ORDERED: PERCOCET 5/325 PO PRN (04:13)
[2018-08-31] MEDS ORDERED: CLEOCIN PO ONE (04:13)
[2018-08-31 04:52] LABS: Alanine Aminotransferase 22 units/L (7-56); Albumin 3.9 g/dL (3.9-5); BUN/Creatinine Ratio 19; Blood Urea Nitrogen 15 mg/dL (9-20); Calcium 9.4 mg/dL (8.4-10.2); Hemolysis Index 7
== END 2018-08-31 05:54 | disposition home or self-care (01) ==
LOC: ED 03:25
DX: L03.115 Cellulitis of right lower limb (principal); I89.0 Lymphedema, not elsewhere classified; I10 Essential (primary) hypertension; K21.9 Gastro-esophageal reflux disease without esophagitis; R11.2 Nausea with vomiting, unspecified; E66.9 Obesity, unspecified; Z68.42 Body mass index [BMI] 45.0-49.9, adult; F17.200 Nicotine dependence, unspecified, uncomplicated; F12.10 Cannabis abuse, uncomplicated; Z79.4 Long term (current) use of insulin; Z79.899 Other long term (current) drug therapy; Z86.718 Personal history of other venous thrombosis and embolism; Z88.8 Allergy status to other drugs, medicaments and biological substances; Z88.5 Allergy status to narcotic agent; Z91.018 Allergy to other foods
CPT/HCPCS: 36415; 80053; 83690; 85025; 99284; Q0162

== ENCOUNTER 2018-12-26 15:02 | Emergency (ER) | payer MEDICAID ==
[2018-12-26 15:20] VITALS: BP 155/88
--- NOTE | 2018-12-26 15:28 | Emergency Department Report ---
Blank Doc - Documentation Documentation: 33-year-old male that presents with URI symptoms. This initial assessment/diagnostic orders/clinical plan/treatment(s) is/are subject to change based on patient's health status, clinical progression and re- assessment by fellow clinical providers in the ED. Further treatment and workup at subsequent clinical providers discretion. Patient/guardians urged not to elope from the ED as their condition may be serious if not clinically assessed and managed. Initial orders include: 1- Patient sent to [facility] for further evaluation and treatment 2- CXR
--- NOTE | 2018-12-26 16:09 | XRay Report ---
CHEST 2 VIEWS INDICATION: Cough for 2 days. COMPARISON: None FINDINGS: Support devices: None. Heart: Within normal limits. Lungs/pleura: No acute air space or interstitial disease. No pneumothorax. Additional findings: None. IMPRESSION: Normal chest x-ray. Signer Name: Deven Wyatt Jr, MD Signed: 12/26/2018 4:05 PM Workstation Name: [id number]
[2018-12-26] MEDS ORDERED: MORPHINE 2 MG/1 ML INJ IM ONE (18:19)
--- NOTE | 2018-12-26 18:19 | Emergency Department Report ---
ED General Adult HPI - General Chief complaint: Upper Respiratory Infection Stated complaint: COLD/ (R) LEG PAIN Time Seen by Provider: 12/26/18 15:28 Source: patient, EMS Mode of arrival: Stretcher Limitations: No Limitations - History of Present Illness Initial comments: This is a 33-year-old male presenting with cough and congestion for the past couple of days. Patient states he works in the department [employer] in the [employer] a lot. He is also complaining of right leg lymphedema which he has had for about 10 years. Patient is complaining of pain to the leg. Patient denies fevers/chills/nausea vomiting abdominal pain and shortness of breath - Related Data Previous Rx's Medication Instructions Recorded Last Taken Type Insulin NPH/Regular [NovoLIN 70/30] 22 unit SQ BIDDIAB 30 Days ml 01/02/18 Unknown Rx Acetaminophen/Codeine [Tylenol 1 tab PO Q6H PRN #10 tab 03/09/18 Unknown Rx /Codeine # 3 tab] Clindamycin [Clindamycin CAP] 300 mg PO Q6H #40 capsule 03/09/18 Unknown Rx HYDROcodone/APAP 5-325 [[place] 1 each PO Q6HR PRN #12 tablet 08/22/18 Unknown Rx 5/325] Clindamycin [Clindamycin CAP] 300 mg PO Q6H 7 Days capsule 08/31/18 Unknown Rx Benzonatate [Tessalon Perles] 100 mg PO Q8HR #20 capsule 12/26/18 Unknown Rx guaiFENesin/CODEINE [Robitussin AC] 10 ml PO TID #100 ml 12/26/18 Unknown Rx Allergies Allergy/AdvReac Type Severity Reaction Status Date / Time acetaminophen Allergy Rash Verified 08/22/18 11:00 [From Darvocet-N] ketorolac tromethamine Allergy Rash Verified 08/22/18 11:00 [From Toradol] propoxyphene napsylate Allergy Rash Verified 08/22/18 11:00 [From Darvocet-N] tomato Allergy Itching Verified 08/22/18 11:00 tramadol Allergy Itching Verified 08/22/18 11:00 ED Review of Systems ROS: Stated complaint: COLD/ (R) LEG PAIN Other details as noted in HPI Comment: All other systems reviewed and negative ED Past Medical Hx - Past Medical History Hx Hypertension: Yes Hx CVA: No Hx Heart Attack/AMI: No Hx Congestive Heart Failure: No Hx Diabetes: (says not diabetic, just sugar always checked at wrong time) Hx Deep Vein Thrombosis: No Hx Pulmonary Embolism: No Hx GERD: Yes Hx Liver Disease: No Hx Renal Disease: No Hx Sickle Cell Disease: No Hx Arthritis: No Hx Headaches / Migraines: No Hx Seizures: No Hx Kidney Stones: No Hx Psychiatric Treatment: No Hx Asthma: No Hx COPD: No Hx Tuberculosis: No Hx Dementia: No Hx HIV: No Additional medical history: Heart murmur. LYMPHEDEMA. OBESITY - Surgical History Hx Coronary Stent: No Hx Open Heart Surgery: No Hx Internal Defibrillator: No Hx Cholecystectomy: No Hx Appendectomy: No Hx Breast Surgery: No Additional Surgical History: Right lower extremity abscess I&D with wound VAC placement - Social History Smoking Status: Current Every Day Smoker Substance Use Type: Marijuana - Medications Home Medications: Home Medications Medication Instructions Recorded Confirmed Last Taken Type Insulin NPH/Regular [NovoLIN 70/30] 22 unit SQ BIDDIAB 30 Days ml 01/02/18 Unknown Rx Acetaminophen/Codeine [Tylenol 1 tab PO Q6H PRN #10 tab 03/09/18 Unknown Rx /Codeine # 3 tab] Clindamycin [Clindamycin CAP] 300 mg PO Q6H #40 capsule 03/09/18 Unknown Rx HYDROcodone/APAP 5-325 [[place] 1 each PO Q6HR PRN #12 tablet 08/22/18 Unknown Rx 5/325] Clindamycin [Clindamycin CAP] 300 mg PO Q6H 7 Days capsule 08/31/18 Unknown Rx Benzonatate [Tessalon Perles] 100 mg PO Q8HR #20 capsule 12/26/18 Unknown Rx guaiFENesin/CODEINE [Robitussin AC] 10 ml PO TID #100 ml 12/26/18 Unknown Rx ED Physical Exam - General Limitations: No Limitations General appearance: alert, in no apparent distress - Head Head exam: Present: atraumatic, normocephalic - Eye Eye exam: Present: normal appearance - ENT ENT exam: Present: mucous membranes moist - Neck Neck exam: Present: normal inspection - Respiratory Respiratory exam: Present: normal lung sounds bilaterally. Absent: respiratory distress - Cardiovascular Cardiovascular Exam: Present: regular rate, normal rhythm. Absent: systolic murmur, diastolic murmur, rubs, gallop - GI/Abdominal GI/Abdominal exam: Present: soft, normal bowel sounds - Rectal Rectal exam: Present: deferred - Extremities Exam Extremities exam: Present: normal inspection - Expanded Lower Extremity Exam Right Hip exam: Present: full ROM Upper Leg exam: Present: normal inspection, swelling Knee exam: Present: full ROM, swelling. Absent: tenderness Lower Leg exam: Present: full ROM, swelling. Absent: tenderness Foot/Toe exam: Present: full ROM, swelling Neuro vascular tendon exam: Present: no vascular compromise Gait: Positive: observed and normal - Back Exam Back exam: Present: normal inspection, full ROM - Neurological Exam Neurological exam: Present: alert, oriented X3, normal gait - Psychiatric Psychiatric exam: Present: normal affect, normal mood - Skin Skin exam: Present: warm, dry, intact, normal color. Absent: rash ED Course Vital Signs 12/26/18 12/26/18 15:12 15:19 Temperature 98.4 F 98.3 F Pulse Rate 77 80 Respiratory 18 18 Rate Blood Pressure 148/84 155/88 O2 Sat by Pulse 100 97 Oximetry ED Medical Decision Making - Radiology Data Radiology results: report reviewed, image reviewed Fluoro Time In Minutes: CHEST 2 VIEWS INDICATION: Cough for 2 days. COMPARISON: None FINDINGS: Support devices: None. Heart: Within normal limits. Lungs/pleura: No acute air space or interstitial disease. No pneumothorax. Additional findings: None. IMPRESSION: Normal chest x-ray. Signer Name: Deven Funes Jr, MD Signed: 12/26/2018 4:05 PM Workstation Name: [id number] Transcribed By: TTR Dictated By: DEVEN FUNES JR, MD Electronically Authenticated By: DEVEN FUNES JR, MD Signed Date/Time: 12/26/18 1605 - Medical Decision Making 33-year-old male presented upper respiratory infection. Patient also presents with pain from lymphedema. Chest x- ray shows no acute findings. Discussed this findings with the patient. Patient had distress while in the ED. I discussed with the follow-up with the primary care physician. Patient also states that he has a appointment with the lymphedema clinic and has been trying to get into a lymphedema clinic. Patient received pain medication in the emergency department. Vital signs are normal. Patient is not in acute distress. Critical care attestation.: If time is entered above; I have spent that time in minutes in the direct care of this critically ill patient, excluding procedure time. ED Disposition Clinical Impression: Lymphedema of right lower extremity, URI (upper respiratory infection) Disposition: TO HOME OR SELFCARE Is pt being admited?: No Does the pt Need Aspirin: No Condition: Stable Instructions: Viral Syndrome (ED), Lymphedema (ED) Additional Instructions: Make sure to follow up with the primary care physician as discussed. Take all your medications as you've been prescribed. If you have any worsening symptoms or develop new symptoms please return to ED immediately. Prescriptions: guaiFENesin/CODEINE [Robitussin AC] 10 ml PO TID #100 ml Benzonatate [Tessalon Perles] 100 mg PO Q8HR #20 capsule Referrals: [facility] [Outside] - 3-5 Days [facility] [Outside] - 3-5 Days Forms: Accompanied Note, Work/School Release Form(ED)
== END 2018-12-26 19:00 | disposition home or self-care (01) ==
LOC: ED 15:02
DX: J06.9 Acute upper respiratory infection, unspecified (principal); I89.0 Lymphedema, not elsewhere classified; I10 Essential (primary) hypertension; K21.9 Gastro-esophageal reflux disease without esophagitis; Z98.890 Other specified postprocedural states; Z79.899 Other long term (current) drug therapy; Z88.8 Allergy status to other drugs, medicaments and biological substances
CPT/HCPCS: 71046; 96372; 99283; J2270

== ENCOUNTER 2019-02-28 23:18 | Emergency (ER) | payer MEDICAID ==
[2019-03-01 00:28] LABS: Basophils # (Auto) 0.1 K/mm3 (0.0-0.1); Basophils % (Auto) 0.6 % (0.0-1.8); Eosinophils # (Auto) 0.1 K/mm3 (0.0-0.4); Eosinophils % (Auto) 0.9 % (0.0-4.3); Hematocrit 42.7 % (35.5-45.6); Hemoglobin 15.1 gm/dl (11.8-15.2); Lymphocytes # (Auto) 2.1 K/mm3 (1.2-5.4); Lymphocytes % (Auto) 22.4 % (13.4-35.0); Mean Corpuscular HGB Conc 35 % (32-34); Mean Corpuscular Volume 94 fl (84-94); Monocytes # (Auto) 0.8 K/mm3 (0.0-0.8); Monocytes % (Auto) 8.5 % (0.0-7.3); Platelet Count 311 K/mm3 (140-440); Red Blood Count 4.56 M/mm3 (3.65-5.03); Red Cell Distribution Width 13.4 % (13.2-15.2)
[2019-03-01 00:50] LABS: Alanine Aminotransferase 43 units/L (7-56); Albumin 4.4 g/dL (3.9-5); BUN/Creatinine Ratio 22; Blood Urea Nitrogen 13 mg/dL (9-20); Calcium 9.7 mg/dL (8.4-10.2); Hemolysis Index 12
[2019-03-01] MEDS ORDERED: ONDANSETRON 4 MG/2 ML INJ IM ONE (03:46)
[2019-03-01] MEDS ORDERED: HYDROmorphone 1 MG/1 ML INJ IM ONE (03:46)
[2019-03-01] MEDS ORDERED: SULFAMETHOXAZOLE/TRIMETHOPRIM 800/160MG DS TAB PO ONE (03:47)
[2019-03-01] MEDS ORDERED: levoFLOXacin 750 MG TAB PO ONE (03:47)
--- NOTE | 2019-03-01 04:04 | Emergency Department Report ---
HPI - General Chief Complaint: Extremity Problem,Nontraumatic Time Seen by Provider: 03/01/19 03:46 - HPI HPI: Room 36 The patient is a 33-year-old male presenting with a chief complaint of right looks to me pain. The patient has history of right looks to be lymphedema states for the past 4 days he's had redness and pain. Patient admits to subjective fever. Patient has had this problem with cellulitis in the past. Patient gives his pain score 10/10 Location: [See above] Duration: [See above] Quality: [See above] Severity: [See above] Timing: [See above] Context: [See above] Modifying factors: [See above] Associated signs and symptoms: [see above] ED Past Medical Hx - Past Medical History Previous Medical History?: Yes Hx Hypertension: Yes Hx Diabetes: (says not diabetic, just sugar always checked at wrong time) Hx GERD: Yes Additional medical history: Heart murmur. LYMPHEDEMA. OBESITY - Surgical History Past Surgical History?: Yes Additional Surgical History: Right lower extremity abscess I&D with wound VAC placement - Family History Family history: no significant - Social History Smoking Status: Current Some Day Smoker Substance Use Type: Alcohol (occasional), Marijuana (occasional) - Medications Home Medications: Home Medications Medication Instructions Recorded Confirmed Last Taken Type Insulin NPH/Regular [NovoLIN 70/30] 22 unit SQ BIDDIAB 30 Days ml 01/02/18 Unknown Rx Acetaminophen/Codeine [Tylenol 1 tab PO Q6H PRN #10 tab 03/09/18 Unknown Rx /Codeine # 3 tab] Clindamycin [Clindamycin CAP] 300 mg PO Q6H #40 capsule 03/09/18 Unknown Rx HYDROcodone/APAP 5-325 [[place] 1 each PO Q6HR PRN #12 tablet 08/22/18 Unknown Rx 5/325] Clindamycin [Clindamycin CAP] 300 mg PO Q6H 7 Days capsule 08/31/18 Unknown Rx Benzonatate [Tessalon Perles] 100 mg PO Q8HR #20 capsule 12/26/18 Unknown Rx guaiFENesin/CODEINE [Robitussin AC] 10 ml PO TID #100 ml 12/26/18 Unknown Rx HYDROcodone/APAP 5-325 [Carney 1 - 2 each PO Q6HR PRN #14 tablet 03/01/19 Unknown Rx 5/325] Sulfamethoxazole/Trimethoprim 1 each PO BID #20 tablet 03/01/19 Unknown Rx [Bactrim DS TAB] levoFLOXacin [Levaquin] 750 mg PO QDAY #10 tablet 03/01/19 Unknown Rx ED Review of Systems ROS: Stated complaint: R LEG PAIN/HOT/COLD SPELLS Other details as noted in HPI Constitutional: fever (objective) Musculoskeletal: myalgia Skin: change in color Physical Exam - Physical Exam Vital Signs: Vital Signs 02/28/19 23:25 Temperature 98.3 F Pulse Rate 85 Respiratory 18 Rate Blood Pressure 141/84 [Right] O2 Sat by Pulse 96 Oximetry Physical Exam: GENERAL: The patient is well-developed well-nourished male lying on stretcher not appearing to be in acute distress. [] HEENT: Normocephalic. Atraumatic. NECK: Trachea midline CHEST/LUNGS: There is no respiratory distress noted. SKIN: There is a large region of erythema/cellulitis encompassing the lower right lower extremity which is also afflicted with lymphedema. The erythema is near circumferential lower extremity. There is no ulceration or drainage seen.. There is no diaphoresis. NEURO: The patient is awake, alert, and oriented. The patient is cooperative. The patient has normal speech MUSCULOSKELETAL:There is no evidence of acute injury. ED Course Vital Signs 02/28/19 23:25 Temperature 98.3 F Pulse Rate 85 Respiratory 18 Rate Blood Pressure 141/84 [Right] O2 Sat by Pulse 96 Oximetry ED Medical Decision Making - Lab Data Result diagrams: 02/28/19 23:40 02/28/19 23:40 Laboratory Tests 02/28/19 02/28/19 23:40 23:40 WBC 9.2 RBC 4.56 Hgb 15.1 Hct 42.7 MCV 94 MCH 33 H MCHC 35 H RDW 13.4 Plt Count 311 Lymph % (Auto) 22.4 [place] % (Auto) 8.5 H Eos % (Auto) 0.9 Baso % (Auto) 0.6 Lymph # 2.1 [place] # 0.8 Eos # 0.1 Baso # 0.1 Seg Neutrophils % 67.6 Seg Neutrophils # 6.2 Sodium 138 Potassium 4.4 Chloride 99.3 Carbon Dioxide 22 Anion Gap 21 BUN 13 Creatinine 0.6 L Estimated GFR > 60 BUN/Creatinine Ratio 22 Glucose 167 H Calcium 9.7 Total Bilirubin 0.60 AST 22 ALT 43 Alkaline Phosphatase 140 H Total Protein 8.2 Albumin 4.4 Albumin/Globulin Ratio 1.2 - Differential Diagnosis cellulitis Critical care attestation.: If time is entered above; I have spent that time in minutes in the direct care of this critically ill patient, excluding procedure time. ED Disposition Clinical Impression: Cellulitis of right lower extremity Disposition: TO HOME OR SELFCARE Is pt being admited?: No Does the pt Need Aspirin: No Condition: Stable Instructions: Cellulitis (ED) Additional Instructions: Return to the emergency department should you develop worsening symptoms, inability to tolerate food or liquids, high fever or any other concerns Prescriptions: Sulfamethoxazole/Trimethoprim [Bactrim DS TAB] 1 each PO BID #20 tablet levoFLOXacin [Levaquin] 750 mg PO QDAY #10 tablet HYDROcodone/APAP 5-325 [[place] 5/325] 1 - 2 each PO Q6HR PRN #14 tablet PRN Reason: Pain Referrals: EVETTE LARA MD [Staff Physician] - 3-5 Days (Dr. Lara is a primary physician. Please follow-up with him for further evaluation if you do not already have a primary physician.) RUPESH CROWLEY MD [Staff Physician] - [facility] (Dr. Corwley is an infectious disease doctor. Please follow-up with him for further evaluation) Time of Disposition: 04:11
[2019-03-01 04:36] VITALS: BP 177/93
== END 2019-03-01 04:35 | disposition home or self-care (01) ==
LOC: ED 23:18
DX: L03.115 Cellulitis of right lower limb (principal); I10 Essential (primary) hypertension; E11.9 Type 2 diabetes mellitus without complications; F17.200 Nicotine dependence, unspecified, uncomplicated; F10.10 Alcohol abuse, uncomplicated; F12.10 Cannabis abuse, uncomplicated; Z79.899 Other long term (current) drug therapy
CPT/HCPCS: 36415; 80053; 85025; 87040; 96372; 99283; J1170; J2405

== ENCOUNTER 2019-03-04 23:35 | Emergency (ER) | payer MEDICAID ==
[2019-03-05 00:12] LABS: Basophils % (Auto) 0.5 % (0.0-1.8); Eosinophils # (Auto) 0.1 K/mm3 (0.0-0.4); Eosinophils % (Auto) 0.8 % (0.0-4.3); Hematocrit 41.8 % (35.5-45.6); Hemoglobin 14.2 gm/dl (11.8-15.2); Lymphocytes # (Auto) 2.1 K/mm3 (1.2-5.4); Lymphocytes % (Auto) 26.7 % (13.4-35.0); Mean Corpuscular HGB Conc 34 % (32-34); Mean Corpuscular Volume 94 fl (84-94); Monocytes # (Auto) 0.7 K/mm3 (0.0-0.8); Monocytes % (Auto) 8.4 % (0.0-7.3); Platelet Count 374 K/mm3 (140-440); Red Blood Count 4.47 M/mm3 (3.65-5.03); Red Cell Distribution Width 12.8 % (13.2-15.2)
[2019-03-05 00:30] LABS: INR 0.99 (0.87-1.13)
[2019-03-05 00:31] LABS: Partial Thromboplastin Time 32.2 Sec. (24.2-36.6)
--- NOTE | 2019-03-05 05:34 | Emergency Department Report ---
- General Chief complaint: Wound/Laceration Stated complaint: RT LEG REDNESS W/SWELLING Time Seen by Provider: 03/05/19 05:27 Source: patient Mode of arrival: Ambulatory Limitations: No Limitations - History of Present Illness Initial comments: Mr. Christopher with history of left abdominal right lower extremity with cellulitis. Patient seen on 03/01/2019 for same and this EGD. Patient currently prescribed Levaquin and Bactrim by mouth. Patient denies fevers or chills, no n/v, states adherrtnce witthr. Lower extremity edema . pt is concerd for worsening cellulitis. There is no fever no chills no n/v, pt is tolerating po intake. There is no open wound or drainage. pt has general oral surgery technician follow up scheduled at [facility] in 2-3 days. MD complaint: rash, other (cellulitis right lower leg ) Onset/Timin -: year(s) Tetanus Up to Date: yes Location: generalized, RLE Severity: mild Severity scale (0 -10): 4 Quality: stabbing, aching Consistency: intermittent Improves with: none Worsens with: none Context: none Associated symptoms: denies other symptoms - Related Data Previous Rx's Medication Instructions Recorded Last Taken Type Insulin NPH/Regular [NovoLIN 70/30] 22 unit SQ BIDDIAB 30 Days ml 01/02/18 Unknown Rx Clindamycin [Clindamycin CAP] 300 mg PO Q6H #40 capsule 03/09/18 Unknown Rx HYDROcodone/APAP 5-325 [Nezperce 1 each PO Q6HR PRN #12 tablet 08/22/18 Unknown Rx 5/325] Clindamycin [Clindamycin CAP] 300 mg PO Q6H 7 Days capsule 08/31/18 Unknown Rx Benzonatate [Tessalon Perles] 100 mg PO Q8HR #20 capsule 12/26/18 Unknown Rx guaiFENesin/CODEINE [Robitussin AC] 10 ml PO TID #100 ml 12/26/18 Unknown Rx HYDROcodone/APAP 5-325 [[place] 1 - 2 each PO Q6HR PRN #14 tablet 03/01/19 Unknown Rx 5/325] Sulfamethoxazole/Trimethoprim 1 each PO BID #20 tablet 03/01/19 Unknown Rx [Bactrim DS TAB] levoFLOXacin [Levaquin] 750 mg PO QDAY #10 tablet 03/01/19 Unknown Rx Acetaminophen/Codeine [Tylenol 1 tab PO Q6H PRN #10 tab 03/05/19 Unknown Rx /Codeine # 3 tab] traMADoL [Ultram] 50 mg PO Q6HR PRN #12 tablet 03/05/19 Unknown Rx Allergies Allergy/AdvReac Type Severity Reaction Status Date / Time acetaminophen Allergy Rash Verified 08/22/18 11:00 [From Darvocet-N] ketorolac tromethamine Allergy Rash Verified 08/22/18 11:00 [From Toradol] propoxyphene napsylate Allergy Rash Verified 08/22/18 11:00 [From Darvocet-N] tomato Allergy Itching Verified 08/22/18 11:00 tramadol Allergy Itching Verified 08/22/18 11:00 Abscess Boil HPI - HPI Chief Complaint: Wound/Laceration Stated Complaint: RT LEG REDNESS W/SWELLING Time Seen by Provider: 03/05/19 05:27 History: Yes Pain, Yes Foreign Body, No Fever (and), No Purulent Drainage, No Numbness, No Previous History, No Insect Bite HPI: celullitis right LE chronic x 1 yr Home Medications: Previous Rx's Medication Instructions Recorded Last Taken Type Insulin NPH/Regular [NovoLIN 70/30] 22 unit SQ BIDDIAB 30 Days ml 01/02/18 Unknown Rx Clindamycin [Clindamycin CAP] 300 mg PO Q6H #40 capsule 03/09/18 Unknown Rx HYDROcodone/APAP 5-325 [[place]perce 1 each PO Q6HR PRN #12 tablet 08/22/18 Unknown Rx 5/325] Clindamycin [Clindamycin CAP] 300 mg PO Q6H 7 Days capsule 08/31/18 Unknown Rx Benzonatate [Tessalon Perles] 100 mg PO Q8HR #20 capsule 12/26/18 Unknown Rx guaiFENesin/CODEINE [Robitussin AC] 10 ml PO TID #100 ml 12/26/18 Unknown Rx HYDROcodone/APAP 5-325 [Nezperce 1 - 2 each PO Q6HR PRN #14 tablet 03/01/19 Unknown Rx 5/325] Sulfamethoxazole/Trimethoprim 1 each PO BID #20 tablet 03/01/19 Unknown Rx [Bactrim DS TAB] levoFLOXacin [Levaquin] 750 mg PO QDAY #10 tablet 03/01/19 Unknown Rx Acetaminophen/Codeine [Tylenol 1 tab PO Q6H PRN #10 tab 03/05/19 Unknown Rx /Codeine # 3 tab] traMADoL [Ultram] 50 mg PO Q6HR PRN #12 tablet 03/05/19 Unknown Rx Allergies/Adverse Reactions: Allergies Allergy/AdvReac Type Severity Reaction Status Date / Time acetaminophen Allergy Rash Verified 08/22/18 11:00 [From Darvocet-N] ketorolac tromethamine Allergy Rash Verified 08/22/18 11:00 [From Toradol] propoxyphene napsylate Allergy Rash Verified 08/22/18 11:00 [From Darvocet-N] tomato Allergy Itching Verified 08/22/18 11:00 tramadol Allergy Itching Verified 08/22/18 11:00 ED Review of Systems ROS: Stated complaint: RT LEG REDNESS W/SWELLING Other details as noted in HPI ED Past Medical Hx - Past Medical History Hx Hypertension: Yes Hx CVA: No Hx Heart Attack/AMI: No Hx Congestive Heart Failure: No Hx Diabetes: (says not diabetic, just sugar always checked at wrong time) Hx Deep Vein Thrombosis: No Hx Pulmonary Embolism: No Hx GERD: Yes Hx Liver Disease: No Hx Renal Disease: No Hx Sickle Cell Disease: No Hx Arthritis: No Hx Headaches / Migraines: No Hx Seizures: No Hx Kidney Stones: No Hx Psychiatric Treatment: No Hx Asthma: No Hx COPD: No Hx Tuberculosis: No Hx Dementia: No Hx HIV: No Additional medical history: Heart murmur. LYMPHEDEMA. OBESITY - Surgical History Hx Coronary Stent: No Hx Open Heart Surgery: No Hx Internal Defibrillator: No Hx Cholecystectomy: No Hx Appendectomy: No Hx Breast Surgery: No Additional Surgical History: Right lower extremity abscess I&D with wound VAC placement - Social History Smoking Status: Current Some Day Smoker Substance Use Type: Alcohol, Marijuana - Medications Home Medications: Home Medications Medication Instructions Recorded Confirmed Last Taken Type Insulin NPH/Regular [NovoLIN 70/30] 22 unit SQ BIDDIAB 30 Days ml 01/02/18 Unknown Rx Clindamycin [Clindamycin CAP] 300 mg PO Q6H #40 capsule 03/09/18 Unknown Rx HYDROcodone/APAP 5-325 [Nezperce 1 each PO Q6HR PRN #12 tablet 08/22/18 Unknown Rx 5/325] Clindamycin [Clindamycin CAP] 300 mg PO Q6H 7 Days capsule 08/31/18 Unknown Rx Benzonatate [Tessalon Perles] 100 mg PO Q8HR #20 capsule 12/26/18 Unknown Rx guaiFENesin/CODEINE [Robitussin AC] 10 ml PO TID #100 ml 12/26/18 Unknown Rx HYDROcodone/APAP 5-325 [Nezperce 1 - 2 each PO Q6HR PRN #14 tablet 03/01/19 Unknown Rx 5/325] Sulfamethoxazole/Trimethoprim 1 each PO BID #20 tablet 03/01/19 Unknown Rx [Bactrim DS TAB] levoFLOXacin [Levaquin] 750 mg PO QDAY #10 tablet 03/01/19 Unknown Rx Acetaminophen/Codeine [Tylenol 1 tab PO Q6H PRN #10 tab 03/05/19 Unknown Rx /Codeine # 3 tab] traMADoL [Ultram] 50 mg PO Q6HR PRN #12 tablet 03/05/19 Unknown Rx ED Physical Exam - General Limitations: No Limitations General appearance: alert, in no apparent distress - Head Head exam: Present: atraumatic ([place]el[place] bulging), normocephalic - Eye Eye exam: Present: normal appearance Pupils: Present: normal accommodation - ENT ENT exam: Present: normal exam, normal orophraynx, normal external ear exam - Neck Neck exam: Present: normal inspection, full ROM. Absent: tenderness, meningismus, lymphadenopathy, thyromegaly - Respiratory Respiratory exam: Present: normal lung sounds bilaterally. Absent: respiratory distress, wheezes, stridor, chest wall tenderness - Cardiovascular Cardiovascular Exam: Present: regular rate, normal rhythm, normal heart sounds. Absent: systolic murmur, diastolic murmur, rubs, gallop - GI/Abdominal GI/Abdominal exam: Present: soft, normal bowel sounds. Absent: bruit, hernia - Rectal Rectal exam: Present: deferred - Extremities Exam Extremities exam: Present: normal inspection, full ROM, normal capillary refill, pedal edema (RLE ). Absent: tenderness, calf tenderness - Back Exam Back exam: Present: normal inspection, full ROM - Neurological Exam Neurological exam: Present: alert, oriented X3 - Psychiatric Psychiatric exam: Present: normal affect, normal mood - Skin Skin exam: Present: warm, dry, intact, normal color, erythema, urticaria. Absent: rash ED Course Vital Signs 03/04/19 03/04/19 23:41 23:43 Temperature 97.5 F L 97.5 F L Pulse Rate 93 H 88 Respiratory 18 18 Rate Blood Pressure 175/100 175/100 O2 Sat by Pulse 97 98 Oximetry ED Medical Decision Making - Lab Data Result diagrams: 03/04/19 23:53 Labs 03/04/19 03/04/19 23:53 23:53 WBC 7.9 RBC 4.47 Hgb 14.2 Hct 41.8 MCV 94 MCH 32 MCHC 34 RDW 12.8 L Plt Count 374 Lymph % (Auto) 26.7 [place] % (Auto) 8.4 H Eos % (Auto) 0.8 Baso % (Auto) 0.5 Lymph # 2.1 [place] # 0.7 Eos # 0.1 Baso # 0.0 Seg Neutrophils % 63.6 Seg Neutrophils # 5.0 PT 13.2 INR 0.99 APTT 32.2 - Medical Decision Making this is chronic recurrent cellulitis, mild at this time, to right le , there is no open wound, no drainage no fever , pt is currently on levaquin, and bactrim po, pt is a/o x 3 and is ambulatory with steady gait, pt well versed on tx plan, and self medication, pt dc'd home in stable condition at this time with rx for tylenol 3 x 10 tabs only , will follow up with general surgery as directed in next 2-3 days. Critical care attestation.: If time is entered above; I have spent that time in minutes in the direct care of this critically ill patient, excluding procedure time. ED Disposition Clinical Impression: Cellulitis of right lower leg Cellulitis Qualifiers: Site of cellulitis: extremity Site of cellulitis of extremity: lower extremity Laterality: right Qualified Code(s): L03.115 - Cellulitis of right lower limb Disposition: DC-01 TO HOME OR SELFCARE Is pt being admited?: No Does the pt Need Aspirin: No Condition: Stable Instructions: Cellulitis (ED) Prescriptions: Acetaminophen/Codeine [Tylenol /Codeine # 3 tab] 1 tab PO Q6H PRN #10 tab PRN Reason: Pain , Severe (7-10) traMADoL [Ultram] 50 mg PO Q6HR PRN #12 tablet PRN Reason: Pain Referrals: PRIMARY CARE, [Primary Care Provider] - 3-5 Days Forms: Work/School Release Form(ED) Time of Disposition: 05:44
[2019-03-05 05:44] VITALS: BP 172/102
== END 2019-03-05 05:43 | disposition home or self-care (01) ==
LOC: ED 23:35
DX: L03.115 Cellulitis of right lower limb (principal); F17.200 Nicotine dependence, unspecified, uncomplicated; F12.10 Cannabis abuse, uncomplicated; Z98.890 Other specified postprocedural states; Z79.899 Other long term (current) drug therapy; Z88.8 Allergy status to other drugs, medicaments and biological substances
CPT/HCPCS: 36415; 85025; 85610; 85730

== ENCOUNTER 2019-03-07 19:39 | Emergency (ER) | payer MEDICAID ==
[2019-03-07 20:15] VITALS: BP 143/90
== END 2019-03-07 21:52 | disposition left against medical advice (07) ==
LOC: ED 19:39
DX: R07.89 Other chest pain (principal); Z53.21 Procedure and treatment not carried out due to patient leaving prior to being seen by health care provider

== ENCOUNTER 2020-05-19 17:44 | Emergency (ER) | payer MEDICAID ==
[2020-05-19 19:30] VITALS: BP 178/93
--- NOTE | 2020-05-19 19:30 | Event Note ---
ED Screening Note Date of service: 05/19/20 Time: 19:30 ED Screening Note: 34-year-old male patient with history of lymphedema presents to emergency department with complaints of nontraumatic diffuse right lower extremity pain and lymph node swelling starting this morning. Also reports nontraumatic right sided thoracic back pain. No chest pain or shortness of breath. Focused physical exam limited due to patient's attire in triage; full physical exam to be conducted by additional ED provider once patient is placed in a gown and assigned an examination room. General: Awake, appropriately interactive, no acute distress. Neck: Supple. Full range of motion intact. Cardiovascular: Normal peripheral perfusion. Pulmonary: No respiratory distress. Patient is speaking normally without use of accessory muscles. Skin: No apparent rashes or lesions. Neurological: No facial asymmetry. Speech is clear. Follows commands. Patient is alert and oriented. Musculoskeletal: Moves all four extremities spontaneously with normal range of motion. Psych: Cooperative. Appropriate mood and affect. I have greeted and performed a focused rapid initial assessment of this patient. A comprehensive ED assessment and evaluation of the patient, analysis of all test results, and completion of the medical decision-making process will be conducted by additional ED providers. This initial assessment/diagnostic orders/clinical plan/treatment(s) is/are subject to change based on patients health status, clinical progression and re-assessment. Further treatment and workup at subsequent clinical provider's discretion. Patient/guardian urged not to elope from the ED as their condition may be serious if not clinically assessed and managed.
[2020-05-19 20:09] LABS: Hematocrit 47.4 % (35.5-45.6); Hemoglobin 16.5 gm/dl (11.8-15.2); Mean Corpuscular HGB Conc 35 % (32-34); Mean Corpuscular Volume 95 fl (84-94); Platelet Count 221 K/mm3 (140-440); Red Blood Count 4.98 M/mm3 (3.65-5.03); Red Cell Distribution Width 13.2 % (13.2-15.2)
[2020-05-19 20:29] LABS: Alanine Aminotransferase 28 units/L (7-56); Albumin 4.4 g/dL (3.9-5); BUN/Creatinine Ratio 11; Blood Urea Nitrogen 9 mg/dL (9-20); Calcium 9.7 mg/dL (8.4-10.2); Hemolysis Index 11
[2020-05-19 20:39] LABS: Total Cells Counted 100
[2020-05-19 20:40] LABS: RBC Morphology Normal
[2020-05-19] MEDS ORDERED: SODIUM CHLORIDE 0.9% 1000 ML IV SOLN IV ONE (20:54)
[2020-05-19] MEDS ORDERED: CEFEPIME/NS 2 GM/100 ML 2 GM/100 ML BAG IV ONE (21:00)
--- NOTE | 2020-05-19 21:05 | Emergency Department Report ---
<MIK LOVELL - Last Filed: 05/19/20 22:17> ED General Adult HPI - General Chief complaint: Urogenital-Male Stated complaint: RIGHT LEG PAIN Time Seen by Provider: 05/19/20 20:51 Source: patient Mode of arrival: Ambulatory Limitations: No Limitations - History of Present Illness Initial comments: 34-year-old male patient with history of lymphedema, diabetes, and hypertension presents to emergency department with complaints of nontraumatic diffuse right thigh pain and lymph node swelling starting this morning. Also reports nontraumatic right sided thoracic back pain. No chest pain or shortness of breath. He denies any skin changes, penile discharge, dysuria/hematuria/urinary frequency, fever/chills/sweats, or new swelling to his leg. No new pain to the lower extremity that is affected by lymphedema per patient. He rates his current pain as a 10/10 in severity. - Related Data Previous Rx's Medication Instructions Recorded Last Taken Type Insulin NPH/Regular [NovoLIN 70/30] 22 unit SQ BIDDIAB 30 Days ml 01/02/18 Unknown Rx Benzonatate [Tessalon Perles] 100 mg PO Q8HR #20 capsule 12/26/18 Unknown Rx guaiFENesin/CODEINE [Robitussin AC] 10 ml PO TID #100 ml 12/26/18 Unknown Rx Acetaminophen/Codeine [Tylenol 1 tab PO Q6H PRN #10 tab 03/05/19 Unknown Rx /Codeine # 3 tab] Ciprofloxacin HCl [Ciprofloxacin 500 mg PO Q12HR #20 tab 09/01/19 Unknown Rx TAB] HYDROcodone/APAP 5-325 [[place] 1 each PO Q6HR PRN #12 tablet 09/01/19 Unknown Rx 5-325 mg TAB] Lactobacillus Acidophilus 1 each PO DAILY #10 tablet 09/01/19 Unknown Rx [Probiotic Acidophilus] metroNIDAZOLE [Flagyl] 500 mg PO Q8HR #30 tablet 09/01/19 Unknown Rx Clindamycin [Clindamycin CAP] 300 mg PO Q8HR #60 capsule 05/20/20 Unknown Rx Ibuprofen [Motrin] 600 mg PO Q8H PRN #30 tablet 05/20/20 Unknown Rx Sulfamethoxazole/Trimethoprim 1 each PO Q12H #20 tablet 05/20/20 Unknown Rx [Bactrim DS TAB] Allergies Allergy/AdvReac Type Severity Reaction Status Date / Time acetaminophen Allergy Rash Verified 05/19/20 19:24 [From Darvocet-N] ketorolac tromethamine Allergy Rash Verified 05/19/20 19:24 [From Toradol] propoxyphene napsylate Allergy Rash Verified 05/19/20 19:24 [From Darvocet-N] tomato Allergy Itching Verified 05/19/20 19:24 tramadol Allergy Itching Verified 05/19/20 19:24 ED Review of Systems Constitutional: denies: chills, diaphoresis, fever, malaise, weakness ENT: denies: throat pain Respiratory: denies: cough, shortness of breath Cardiovascular: denies: chest pain Gastrointestinal: abdominal pain. denies: nausea, vomiting, diarrhea, constipation, hematemesis, melena, hematochezia Genitourinary: denies: urgency, dysuria, frequency, hematuria, discharge, testicular pain, testicular mass Musculoskeletal: back pain (Right flank) Skin: denies: rash, lesions, change in color Neurological: denies: headache, numbness, paresthesias Hematological/Lymphatic: swollen glands ED Past Medical Hx - Past Medical History Hx Hypertension: Yes Hx CVA: No Hx Heart Attack/AMI: No Hx Congestive Heart Failure: No Hx Diabetes: Yes Hx Deep Vein Thrombosis: No Hx Pulmonary Embolism: No Hx GERD: Yes Hx Liver Disease: No Hx Renal Disease: No Hx Sickle Cell Disease: No Hx Arthritis: No Hx Headaches / Migraines: No Hx Seizures: No Hx Kidney Stones: No Hx Psychiatric Treatment: No Hx Asthma: No Hx COPD: No Hx Tuberculosis: No Hx Dementia: No Hx HIV: No Additional medical history: Heart murmur. LYMPHEDEMA. OBESITY - Surgical History Hx Coronary Stent: No Hx Open Heart Surgery: No Hx Pacemaker: No Hx Internal Defibrillator: No Hx Cholecystectomy: No Hx Appendectomy: No Hx Breast Surgery: No Additional Surgical History: Right lower extremity abscess I&D with wound VAC placement - Social History Smoking Status: Current Every Day Smoker Substance Use Type: None - Medications Home Medications: Home Medications Medication Instructions Recorded Confirmed Last Taken Type Insulin NPH/Regular [NovoLIN 70/30] 22 unit SQ BIDDIAB 30 Days ml 01/02/18 Unknown Rx Benzonatate [Tessalon Perles] 100 mg PO Q8HR #20 capsule 12/26/18 Unknown Rx guaiFENesin/CODEINE [Robitussin AC] 10 ml PO TID #100 ml 12/26/18 Unknown Rx Acetaminophen/Codeine [Tylenol 1 tab PO Q6H PRN #10 tab 03/05/19 Unknown Rx /Codeine # 3 tab] Ciprofloxacin HCl [Ciprofloxacin 500 mg PO Q12HR #20 tab 09/01/19 Unknown Rx TAB] HYDROcodone/APAP 5-325 [[place] 1 each PO Q6HR PRN #12 tablet 09/01/19 Unknown Rx 5-325 mg TAB] Lactobacillus Acidophilus 1 each PO DAILY #10 tablet 09/01/19 Unknown Rx [Probiotic Acidophilus] metroNIDAZOLE [Flagyl] 500 mg PO Q8HR #30 tablet 09/01/19 Unknown Rx Clindamycin [Clindamycin CAP] 300 mg PO Q8HR #60 capsule 05/20/20 Unknown Rx Ibuprofen [Motrin] 600 mg PO Q8H PRN #30 tablet 05/20/20 Unknown Rx Sulfamethoxazole/Trimethoprim 1 each PO Q12H #20 tablet 05/20/20 Unknown Rx [Bactrim DS TAB] ED Physical Exam - General Limitations: No Limitations General appearance: alert, in no apparent distress, obese - Head Head exam: Present: atraumatic, normocephalic - Eye Eye exam: Present: normal appearance. Absent: scleral icterus - Neck Neck exam: Present: normal inspection, full ROM - Respiratory Respiratory exam: Present: normal lung sounds bilaterally. Absent: respiratory distress - Cardiovascular Cardiovascular Exam: Present: regular rate, normal rhythm - GI/Abdominal GI/Abdominal exam: Present: soft, tenderness (Right suprapubic/right lower quadrant with right inguinal tenderness to palpation noted; no obvious lymphadenopathy noted), normal bowel sounds. Absent: distended, guarding, rebound, rigid - Extremities Exam Extremities exam: Present: full ROM, other (Severe lymphedema noted to right lower extremity without skin lesions or cellulitic changes noted; right thigh is tender to palpation in the posterior region without obvious swelling or skin changes noted) - Back Exam Back exam: Present: full ROM - Neurological Exam Neurological exam: Present: alert, oriented X3, normal gait - Psychiatric Psychiatric exam: Present: normal affect, normal mood - Skin Skin exam: Present: warm, dry, intact, normal color. Absent: rash, cyanosis, diaphoretic, ecchymosis ED Medical Decision Making - Lab Data Result diagrams: 05/19/20 19:51 05/19/20 19:51 Lab Results 05/19/20 05/19/20 05/19/20 Range/Units 19:51 19:51 19:51 WBC 21.5 H (4.5-11.0) K/mm3 RBC 4.98 (3.65-5.03) M/mm3 Hgb 16.5 H (11.8-15.2) gm/dl Hct 47.4 H (35.5-45.6) % MCV 95 H (84-94) fl MCH 33 H (28-32) pg MCHC 35 H (32-34) % RDW 13.2 (13.2-15.2) % Plt Count 221 (140-440) K/mm3 Add Manual Diff Complete Total Counted 100 Seg Neutrophils % [employer]ician [employer] Seg Neuts % (Manual) 88.0 H (40.0-70.0) % Lymphocytes % (Manual) 8.0 L (13.4-35.0) % Monocytes % (Manual) 4.0 (0.0-7.3) % Promyelocytes % 0 % Nucleated RBC % Not Reportable Seg Neutrophils # Man 18.9 H (1.8-7.7) K/mm3 Band Neutrophils # 0.0 K/mm3 Lymphocytes # (Manual) 1.7 (1.2-5.4) K/mm3 Abs React Lymphs (Man) 0.0 K/mm3 Monocytes # (Manual) 0.9 H (0.0-0.8) K/mm3 Eosinophils # (Manual) 0.0 (0.0-0.4) K/mm3 Basophils # (Manual) 0.0 (0.0-0.1) K/mm3 Metamyelocytes # 0.0 K/mm3 Myelocytes # 0.0 K/mm3 Promyelocytes # 0.0 K/mm3 Blast Cells # 0.0 K/mm3 WBC Morphology Not Reportable Hypersegmented Neuts Not Reportable Hyposegmented Neuts Not Reportable Hypogranular Neuts Not Reportable Smudge Cells Not Reportable Toxic Granulation Not Reportable Toxic Vacuolation Not Reportable Dohle Bodies Not Reportable Pelger-Huet Anomaly Not Reportable Maryann Rods Not Reportable Platelet Estimate Appears normal Clumped Platelets Not Reportable Plt Clumps, EDTA Not Reportable Large Platelets Not Reportable Giant Platelets Not Reportable Platelet Satelliting Not Reportable Plt Morphology Comment Not Reportable RBC Morphology Normal Dimorphic RBCs Not Reportable Polychromasia Not Reportable Hypochromasia Not Reportable Poikilocytosis Not Reportable Anisocytosis Not Reportable Microcytosis Not Reportable Macrocytosis Not Reportable Spherocytes Not Reportable Pappenheimer Bodies Not Reportable Sickle Cells Not Reportable Target Cells Not Reportable Tear Drop Cells Not Reportable Ovalocytes Not Reportable Helmet Cells Not Reportable [place] Bodies Not Reportable [place] Rings Not Reportable [place] Cells Not Reportable Bite Cells Not Reportable Crenated Cell Not Reportable Elliptocytes Not Reportable Acanthocytes (Spur) Not Reportable Rouleaux Not Reportable Hemoglobin C Crystals Not Reportable Schistocytes Not Reportable Malaria parasites Not Reportable Hugo Bodies Not Reportable Hem Pathologist Commnt No Sodium 129 L (137-145) mmol/L Potassium 4.3 (3.6-5.0) mmol/L Chloride 91.1 L (98-107) mmol/L Carbon Dioxide 23 (22-30) mmol/L Anion Gap 19 mmol/L BUN 9 (9-20) mg/dL Creatinine 0.8 (0.8-1.3) mg/dL Estimated GFR > 60 ml/min BUN/Creatinine Ratio 11 % Glucose 387 H (75-100) mg/dL Lactic Acid 3.50 H* (0.7-2.0) mmol/L Calcium 9.7 (8.4-10.2) mg/dL Magnesium 2.00 (1.7-2.3) mg/dL Total Bilirubin 0.80 (0.1-1.2) mg/dL AST 20 (5-40) units/L ALT 28 (7-56) units/L Alkaline Phosphatase 115 (35-129) units/L Total Creatine Kinase 91 (55-170) units/L Total Protein 8.2 (6.3-8.2) g/dL Albumin 4.4 (3.9-5) g/dL Albumin/Globulin Ratio 1.2 % - Radiology Data Radiology results: report reviewed CT abdomen pelvis w con INDICATION / CLINICAL INFORMATION: RLQ, lymphadenopathy. TECHNIQUE: All CT scans at this location are performed using CT dose reduction for ALARA by means of automated exposure control. COMPARISON: None available. FINDINGS: A small hiatal hernia is present. No free fluid is seen in the abdomen. The liver, spleen, kidneys, pancreas, adrenal glands and great vessels are normal. No enlarged mesenteric or retroperitoneal lymph nodes are seen. In the pelvis, no free fluid is seen. Mildly enlarged lymph nodes are seen in the right groin. The bladder and the appendix are normal. No significant skeletal abnormality is seen. IMPRESSION: 1. Mildly enlarged lymph nodes in the right groin 2. Small hiatal hernia - Medical Decision Making 34-year-old male patient with history of lymphedema, diabetes, and hypertension presents to emergency department with complaints of nontraumatic diffuse right thigh pain and lymph node swelling starting this morning. Also reports nontraumatic right sided thoracic back pain. No chest pain or shortness of breath. He denies any skin changes, penile discharge, dysuria/hematuria/urinary frequency, fever/chills/sweats, or new swelling to his leg. No new pain to the lower extremity that is affected by lymphedema per patient. He rates his current pain as a 10/10 in severity. ED Disposition Clinical Impression: Lymphedema of right lower extremity, Sepsis due to cellulitis, Pain of right lower extremity, Acute hyponatremia Hyperglycemia due to type 2 diabetes mellitus Qualifiers: Diabetes mellitus vegetable tester insulin use: without halfway use Qualified Code(s ): E11.65 - Type 2 diabetes mellitus with hyperglycemia Disposition: -07 LEFT AGAINST MED ADVICE Condition: Undetermined Instructions: Diabetes Mellitus Type 2 in Adults (ED), Type 2 Diabetes Mellitus, Self Care, Adult, [id number], Cellulitis, Adult, [id number], Sepsis, Self Care, Adult, Hyperglycemia, [id number] Additional Instructions: Your lab test results were reviewed and show significant infection in your blood characterized by acute leukocytosis and lactic acidosis, as well as significant hyperglycemia due to uncontrolled diabetes. You have opted to sign out AGAINST MEDICAL ADVICE from the ED, knowing the consequences of that decision which can be fatal and lead to and loss of limb. Therefore take medications, drink plenty of fluids and follow-up with your primary care physician in 12 to 24 hours for reevaluation. Return to the emergency department immediately if your symptoms get worse. Prescriptions: Sulfamethoxazole/Trimethoprim [Bactrim DS TAB] 1 each PO Q12H #20 tablet Clindamycin [Clindamycin CAP] 300 mg PO Q8HR #60 capsule Ibuprofen [Motrin] 600 mg PO Q8H PRN #30 tablet PRN Reason: Pain Referrals: [facility] [Provider Group] - 24 Hours Forms: AMA Form Print Language: BANGLADESHI <DAVE CHAVARRIA - Last Filed: 05/20/20 00:23> ED Review of Systems ROS: Stated complaint: RIGHT LEG PAIN Other details as noted in HPI ED Course Vital Signs 05/19/20 19:23 Temperature 98.7 F Pulse Rate 99 H Respiratory 18 Rate Blood Pressure 178/93 O2 Sat by Pulse 96 Oximetry ED Medical Decision Making - Lab Data Result diagrams: 05/19/20 19:51 05/19/20 19:51 - Radiology Data [facility] [address] [place] [address] Vascular Lab Report Signed Patient: GABRIELA FERREIRA MR#: [id number] : 1985 Acct:[id number] Age/Sex: 34 / M ADM Date: 05/19/20 Loc: ED Attending Dr: Ordering Physician: MIK LOVELL Date of Service: 05/19/20 Procedure(s): VL venous duplex LE RT Accession Number(s): [id number] cc: MIK LOVELL DUPLEX DOPPLER LOWER EXTREMITY VEINS, RIGHT INDICATION / CLINICAL INFORMATION: Right lower extremity swelling. TECHNIQUE: Duplex doppler imaging was performed through the veins of the right lower extremity using venous compression and other maneuvers. COMPARISON: None available. FINDINGS: RIGHT COMMON FEMORAL VEIN: Negative. RIGHT FEMORAL VEIN: Negative. RIGHT POPLITEAL VEIN: Negative. RIGHT CALF VEINS: Negative. ADDITIONAL FINDINGS: None. IMPRESSION: 1. No sonographic evidence for DVT in the right lower extremity. Signer Name: Huang Mari MD Signed: 05/19/2020 11:13 PM Workstation Name: [id number] Transcribed By: SS Dictated By: Huang Mari MD Electronically Authenticated By: Huang Mari MD Signed Date/Time: 05/19/202312 DD/ 11 TD/TT: - Medical Decision Making I assumed care of the patient from Ms. Mik Lovell PA-C at 2230 hrs. briefly patient is a 34-year-old -[place] male with a history of morbid obesity, chronic right leg lymphedema, [id number] diabetes and hypertension who presented to the ED with severe nontraumatic right thigh pain that radiates to the right lower leg. In the ED, patient was treated for pain, lab test re sults were reviewed and showed acute leukocytosis of 21,500, lactic acidosis of 3.5, hyperglycemia of 387 mg/dL, acute hyponatremia of 129 mmol/L and acute hypochloremia of 91.1 mmol/L. Abdomen pelvis CT scan with contrast showed mildly enlarged lymph nodes in the right groin and small hiatal hernia with no other acute abnormalities. The right leg Doppler ultrasound showed no sonographic evidence of DVT. Patient was treated in the ED also with 2 L of normal saline IV bolus as well as cefepime 2 g IV x1 empirically for suspected cellulitis on the right lower leg. On reevaluation, patient's pain is well controlled medications. I discussed the plan of care with the patient with a view to admitting the patient to the hospital for further parenteral antibiotic therapy for suspected cellulitis given the patient's septic state but the patient vehemently refused any admission and asked to be discharged home on oral antibiotics instead. Efforts to explain to the patient the dangers and co nsequences of leaving the hospital AMA including and loss of limb was futile as the patient literally declined stating "I would never want to be admitted to this hospital at all." Patient thereafter signed out AGAINST MEDICAL ADVICE and left the ED but was given a prescription of Bactrim DS a ntibiotics and ibuprofen 600 mg p.o. every 8 hours as needed for pain. At the time of patient's departure from the ED, patient is alert and oriented x4 and is not in any distress. Patient was advised return to the ED immediately if his symptoms get worse or otherwise follow-up with his primary care physician in 24 to 48 hours for reevaluation. - Differential Diagnosis Cellulitis; lymphedema; osteomyelitis; DVT; necrotizing fasciitis Critical care attestation.: If time is entered above; I have spent that time in minutes in the direct care of this critically ill patient, excluding procedure time. ED Disposition Is pt being admited?: No Does the pt Need Aspirin: No Time of Disposition: 00:13
[2020-05-19] MEDS ORDERED: MORPHINE 4 MG/1 ML INJ IV ONE (21:08)
[2020-05-19] MEDS ORDERED: SODIUM CHLORIDE 0.9% 1000 ML 1,000 ML IV ONE ×2 (21:35)
[2020-05-19] MEDS ORDERED: INSULIN REGULAR, HUMAN 100 UNITS/1 ML IV ONE (21:42)
--- NOTE | 2020-05-19 22:05 | Cat Scan Report ---
CT abdomen pelvis w con INDICATION / CLINICAL INFORMATION: RLQ, lymphadenopathy. TECHNIQUE: All CT scans at this location are performed using CT dose reduction for ALARA by means of automated e xposure control. COMPARISON: None available. FINDINGS: A small hiatal hernia is present. No free fluid is seen in the abdomen. The liver, spleen, kidneys, p ancreas, adrenal glands and great vessels are normal. No enlarged mesenteric or retroperitoneal lymph nodes are seen. In the pelvis, no free fluid is seen. Mildly enlarged lymph nodes are seen in the right groin. The bl adder and the appendix are normal. No significant skeletal abnormality is seen. IMPRESSION: 1. Mildly enlarged lymph nodes in the right groin 2. Small hiatal hernia Signer Name: Kemal Cornell MD FACR Signed: 05/19/2020 10:00 PM Workstation Name: [id number]
--- NOTE | 2020-05-19 23:17 | Vascular Lab Report ---
DUPLEX DOPPLER LOWER EXTREMITY VEINS, RIGHT INDICATION / CLINICAL INFORMATION: Right lower extremity swelling. TECHNIQUE: Duplex doppler imaging was performed through the veins of the right lower extremity using venous compression and other maneuvers. COMPARISON: None available. FINDINGS: RIGHT COMMON FEMORAL VEIN: Negative. RIGHT FEMORAL VEIN: Negative. RIGHT POPLITEAL VEIN: Negative. RIGHT CALF VEINS: Negative. ADDITIONAL FINDINGS: None. IMPRESSION: 1. No sonographic evidence for DVT in the right lower extremity. Signer Name: Huang Mari MD Signed: 05/19/2020 11:13 PM Workstation Name: [id number]
[2020-05-19 23:28] LABS: Bacteria,Urine 1+ /HPF (Negative); Bilirubin,Urine NEG (Negative); Blood,Urine NEG (Negative); Color,Urine Yellow (Yellow); Protein,Urine <15 mg/dL mg/dL (Negative); RBC,Urine < 1.0 /HPF (0.0-6.0); Urobilinogen,Urine < 2.0 mg/dL (<2.0); WBC,Urine < 1.0 /HPF (0.0-6.0)
== END 2020-05-20 00:40 | disposition left against medical advice (07) ==
LOC: ED 17:44
DX: E87.1 Hypo-osmolality and hyponatremia (principal); E11.65 Type 2 diabetes mellitus with hyperglycemia; I89.0 Lymphedema, not elsewhere classified; R65.20 Severe sepsis without septic shock; I10 Essential (primary) hypertension; K21.9 Gastro-esophageal reflux disease without esophagitis; F17.200 Nicotine dependence, unspecified, uncomplicated; Z79.4 Long term (current) use of insulin; Z79.899 Other long term (current) drug therapy; Z88.8 Allergy status to other drugs, medicaments and biological substances
CPT/HCPCS: 36415; 74177; 80053; 81001; 82140; 82550; 83735; 85007; 85025; 87040; 93971; 96361; 96365; 96375; 99284; J0692; J2270; J7030; Q9967; J1815

== ENCOUNTER 2020-07-04 18:50 | Emergency (ER) | payer MEDICAID ==
[2020-07-04 22:26] VITALS: BP 156/101
[2020-07-05 00:04] LABS: Alanine Aminotransferase 30 units/L (7-56); Albumin 4.7 g/dL (3.9-5); BUN/Creatinine Ratio 13; Blood Urea Nitrogen 12 mg/dL (9-20); Calcium 9.5 mg/dL (8.4-10.2); Hemolysis Index 5
[2020-07-05 00:13] LABS: Mean Corpuscular HGB Conc 37 % (32-34); Mean Corpuscular Volume 93 fl (84-94); Platelet Count 274 K/mm3 (140-440); Red Cell Distribution Width 13.3 % (13.2-15.2)
[2020-07-05 00:14] LABS: Hematocrit 43.5 % (35.5-45.6); Hemoglobin 15.9 gm/dl (11.8-15.2)
[2020-07-05 01:40] LABS: Bacteria,Urine 1+ /HPF (Negative); Bilirubin,Urine SM (Negative); Blood,Urine NEG (Negative); Color,Urine Amber (Yellow); Mucus,Urine 1+ /HPF
[2020-07-05 02:13] LABS: Ictotest,Urine Negative (Negative)
[2020-07-05 02:56] LABS: Anisocytosis 1+; Basophils % (Manual) 0.5 % (0.0-1.8); Eosinophils % (Manual) 0.5 % (0.0-4.3); Monocytes % (Manual) 3.5 % (0.0-7.3); Platelet Estimate Consistent w Auto; Total Cells Counted 200
== END 2020-07-05 05:50 ==
LOC: ED 18:50
DX: M79.604 Pain in right leg (principal); Z53.21 Procedure and treatment not carried out due to patient leaving prior to being seen by health care provider
CPT/HCPCS: 36415; 80053; 81001; 85007; 85025; 87086

== ENCOUNTER 2020-09-29 12:35 | Inpatient (IN) | payer MEDICAID ==
--- NOTE | 2020-09-29 15:07 | Event Note ---
ED Screening Note ED Screening Note: pt reports he had an I&D at [facility] 09/22/2020 he currently has a drain in place he states that he was released from the [place] 09/25/20 he reports worsening pain and drainage and odor This initial assessment/diagnostic orders/clinical plan/treatment(s) is/are subject to change based on patients health status, clinical progression and re- assessment by fellow clinical providers in the ED. Further treatment and workup at subsequent clinical providers discretion. Patient/guardian urged not to elope from the ED as their condition may be serious if not clinically assessed and managed. Initial orders include: labs, MAIN ED
[2020-09-29 17:31] LABS: Alanine Aminotransferase 31 units/L (7-56); Albumin 3.9 g/dL (3.9-5); BUN/Creatinine Ratio 20; Blood Urea Nitrogen 14 mg/dL (9-20); Calcium 9.3 mg/dL (8.4-10.2); Hemolysis Index 5
[2020-09-29 17:33] LABS: Basophils % (Auto) 0.4 % (0.0-1.8); Eosinophils # (Auto) 0.1 K/mm3 (0.0-0.4); Eosinophils % (Auto) 0.6 % (0.0-4.3); Hematocrit 42.9 % (35.5-45.6); Hemoglobin 14.9 gm/dl (11.8-15.2); Lymphocytes # (Auto) 2.4 K/mm3 (1.2-5.4); Lymphocytes % (Auto) 23.9 % (13.4-35.0); Mean Corpuscular HGB Conc 35 % (32-34); Mean Corpuscular Volume 93 fl (84-94); Monocytes # (Auto) 0.5 K/mm3 (0.0-0.8); Monocytes % (Auto) 5.2 % (0.0-7.3); Platelet Count 618 K/mm3 (140-440); Red Blood Count 4.61 M/mm3 (3.65-5.03); Red Cell Distribution Width 12.7 % (13.2-15.2)
[2020-09-29] MEDS ORDERED: SODIUM CHLORIDE 0.9% 1000 ML 1,000 ML IV ONE (22:48)
[2020-09-29] MEDS ORDERED: VANCOMYCIN/NS 1 GM/250 ML 1 GM/250 ML BAG IV ONE (22:48)
[2020-09-29] MEDS ORDERED: ONDANSETRON 4 MG/2 ML INJ IV ONE (22:52)
[2020-09-29] MEDS ORDERED: PIPERACIL/TAZOBACTA 4.5/NS 100 4.5 GM/100 ML VIAL IV ONE (22:52)
[2020-09-29] MEDS ORDERED: HYDROmorphone 1 MG/1 ML INJ IV ONE (22:52)
--- NOTE | 2020-09-29 23:05 | Emergency Department Report ---
ED Extremity Problem HPI - General Chief complaint: Extremity Problem,Nontraumatic Stated complaint: LEG PAIN (RT) Time Seen by Provider: 09/29/20 22:40 Source: patient Mode of arrival: Wheelchair Limitations: No Limitations - History of Present Illness Initial comments: Patient is a 35-year-old male who presents emergency room with complaints of right lower extremity pain. Patient states he is having increased pain. Patient also states he is having increased swelling and redness. Patient states he has had issues with lymphedema since he was 19 years old. Patient states that on September 12 he had a cellulitis to the right lower extremity and was given oral antibiotics and he failed outpatient treatment. Patient states on 18 September he went to [facility] and was admitted for abscess removal. Patient states they placed a drain in his right lower extremity and the drain has stopped working. Patient states that is when the pain and swelling and redness increase. Patient states he feels feverish. Patient states he does not want to go back to [facility] because he did not like how he was treated. Patient states that is why he came here. Patient states he is currently on Bactrim orally. Patient states he has pain medications for home but the pain is so bad they are not even working. Patient denies recent travel. Patient denies recent international travel. Patient denies exposure to the novel coronavirus. Patient denies sick contacts. Patient denies cough. Patient denies diarrhea. Patient denies coming in contact with anybody with symptoms of the novel coronavirus. MD Complaint: extremity pain, extremity swelling -: Sudden Location: right, lower extremity History of Same: Yes -: Yes fever Severity scale (0 -10): 10 Quality: sharp Consistency: constant Improves with: rest Worsens with: weight bearing, walking, exertion, palpation Associated Symptoms: fever. denies: chest pain, shortness of breath, myalgias, arthralgias, rash - Related Data Previous Rx's Medication Instructions Recorded Last Taken Type Insulin NPH/Regular [NovoLIN 70/30] 22 unit SQ BIDDIAB 30 Days ml 01/02/18 Unknown Rx Benzonatate [Tessalon Perles] 100 mg PO Q8HR #20 capsule 12/26/18 Unknown Rx guaiFENesin/CODEINE [Robitussin AC] 10 ml PO TID #100 ml 12/26/18 Unknown Rx Acetaminophen/Codeine [Tylenol 1 tab PO Q6H PRN #10 tab 03/05/19 Unknown Rx /Codeine # 3 tab] Ciprofloxacin HCl [Ciprofloxacin 500 mg PO Q12HR #20 tab 09/01/19 Unknown Rx TAB] HYDROcodone/APAP 5-325 [[place] 1 each PO Q6HR PRN #12 tablet 09/01/19 Unknown Rx 5-325 mg TAB] Lactobacillus Acidophilus 1 each PO DAILY #10 tablet 09/01/19 Unknown Rx [Probiotic Acidophilus] metroNIDAZOLE [Flagyl] 500 mg PO Q8HR #30 tablet 09/01/19 Unknown Rx Clindamycin [Clindamycin CAP] 300 mg PO Q8HR #60 capsule 05/20/20 Unknown Rx Ibuprofen [Motrin] 600 mg PO Q8H PRN #30 tablet 05/20/20 Unknown Rx Sulfamethoxazole/Trimethoprim 1 each PO Q12H #20 tablet 05/20/20 Unknown Rx [Bactrim DS TAB] Allergies Allergy/AdvReac Type Severity Reaction Status Date / Time acetaminophen Allergy Rash Verified 09/29/20 13:10 [From Darvocet-N] ketorolac tromethamine Allergy Rash Verified 09/29/20 13:10 [From Toradol] propoxyphene napsylate Allergy Rash Verified 09/29/20 13:10 [From Darvocet-N] tomato Allergy Itching Verified 09/29/20 13:10 tramadol Allergy Itching Verified 09/29/20 13:10 ED Review of Systems ROS: Stated complaint: LEG PAIN (RT) Other details as noted in HPI Constitutional: fever. denies: chills Eyes: denies: eye pain, eye discharge, vision change ENT: denies: ear pain, throat pain Respiratory: denies: cough, shortness of breath, wheezing Cardiovascular: denies: chest pain, palpitations Endocrine: no symptoms reported Gastrointestinal: denies: abdominal pain, nausea, diarrhea Genitourinary: denies: urgency, dysuria Musculoskeletal: denies: back pain, joint swelling, arthralgia Skin: denies: rash, lesions Neurological: denies: headache, weakness, paresthesias Psychiatric: denies: anxiety, depression Hematological/Lymphatic: denies: easy bleeding, easy bruising ED Past Medical Hx - Past Medical History Previous Medical History?: Yes Hx Hypertension: Yes Hx CVA: No Hx Heart Attack/AMI: No Hx Congestive Heart Failure: No Hx Diabetes: Yes Hx Deep Vein Thrombosis: No Hx Pulmonary Embolism: No Hx GERD: Yes Hx Liver Disease: No Hx Renal Disease: No Hx Sickle Cell Disease: No Hx Arthritis: No Hx Headaches / Migraines: No Hx Seizures: No Hx Kidney Stones: No Hx Psychiatric Treatment: No Hx Asthma: No Hx COPD: No Hx Tuberculosis: No Hx Dementia: No Hx HIV: No Additional medical history: Heart murmur. LYMPHEDEMA. OBESITY - Surgical History Past Surgical History?: Yes Hx Coronary Stent: No Hx Open Heart Surgery: No Hx Pacemaker: No Hx Internal Defibrillator: No Hx Cholecystectomy: No Hx Appendectomy: No Hx Breast Surgery: No Additional Surgical History: Right lower extremity abscess I&D with wound VAC placement - Family History Family history: no significant - Social History Smoking Status: Current Every Day Smoker Substance Use Type: None - Medications Home Medications: Home Medications Medication Instructions Recorded Confirmed Last Taken Type Insulin NPH/Regular [NovoLIN 70/30] 22 unit SQ BIDDIAB 30 Days ml 01/02/18 Unknown Rx Benzonatate [Tessalon Perles] 100 mg PO Q8HR #20 capsule 12/26/18 Unknown Rx guaiFENesin/CODEINE [Robitussin AC] 10 ml PO TID #100 ml 12/26/18 Unknown Rx Acetaminophen/Codeine [Tylenol 1 tab PO Q6H PRN #10 tab 03/05/19 Unknown Rx /Codeine # 3 tab] Ciprofloxacin HCl [Ciprofloxacin 500 mg PO Q12HR #20 tab 09/01/19 Unknown Rx TAB] HYDROcodone/APAP 5-325 [[place] 1 each PO Q6HR PRN #12 tablet 09/01/19 Unknown Rx 5-325 mg TAB] Lactobacillus Acidophilus 1 each PO DAILY #10 tablet 09/01/19 Unknown Rx [Probiotic Acidophilus] metroNIDAZOLE [Flagyl] 500 mg PO Q8HR #30 tablet 09/01/19 Unknown Rx Clindamycin [Clindamycin CAP] 300 mg PO Q8HR #60 capsule 05/20/20 Unknown Rx Ibuprofen [Motrin] 600 mg PO Q8H PRN #30 tablet 05/20/20 Unknown Rx Sulfamethoxazole/Trimethoprim 1 each PO Q12H #20 tablet 05/20/20 Unknown Rx [Bactrim DS TAB] ED Physical Exam - General Limitations: No Limitations General appearance: alert, in no apparent distress - Head Head exam: Present: atraumatic, normocephalic - Eye Eye exam: Present: normal appearance - ENT ENT exam: Present: mucous membranes moist - Neck Neck exam: Present: normal inspection - Respiratory Respiratory exam: Present: normal lung sounds bilaterally. Absent: respiratory distress, wheezes, rales - Cardiovascular Cardiovascular Exam: Present: regular rate, normal rhythm. Absent: systolic murmur, diastolic murmur, rubs, gallop - GI/Abdominal GI/Abdominal exam: Present: soft, normal bowel sounds. Absent: distended, tenderness, guarding - Rectal Rectal exam: Present: deferred - Extremities Exam Extremities exam: Present: normal inspection (Except for right lower extremity.), tenderness (To the right lower extremity.), normal capillary refill, pedal edema (To the right lower extremity), calf tenderness - Back Exam Back exam: Present: normal inspection - Neurological Exam Neurological exam: Present: alert, oriented X3 - Psychiatric Psychiatric exam: Present: normal affect, normal mood - Skin Skin exam: Present: warm, dry, normal color, other (Open wound to the right lower extremity and a drain tube noted in the right lower extremity.). Absent: rash ED Course Vital Signs 09/29/20 09/29/20 09/29/20 13:14 22:45 23:01 Temperature 98.7 F Pulse Rate 94 H 98 H 88 Respiratory 16 19 16 Rate Blood Pressure 143/94 153/96 O2 Sat by Pulse 98 99 Oximetry 09/29/20 23:15 Temperature Pulse Rate 86 Respiratory 18 Rate Blood Pressure 153/96 O2 Sat by Pulse 99 Oximetry - Reevaluation(s) Reevaluation #1: Patient signed a medical records request form for [facility]. The form will be faxed over to [facility] so we can obtain his medical records. 09/29/20 23:05 Reevaluation #2: I discussed all results with patient. I discussed plan of care with patient. Patient agrees with plan of care and admission. Patient to be admitted to the hospitalist service. 09/29/20 23:50 - Consultations Consultation #1: Hospitalist consulted for admission. Hospitalist to admit patient. 09/29/20 23:55 ED Medical Decision Making - Lab Data Result diagrams: 09/29/20 16:47 09/29/20 16:47 - Radiology Data Radiology results: report reviewed RIGHT ANKLE 2 VIEW(S) INDICATION / CLINICAL INFORMATION: lower ext pain COMPARISON: None available. FINDINGS: BONES / JOINT(S): No acute fracture or subluxation. No significant arthritis. SOFT TISSUES: Marked soft tissue swelling with small amount of gas within the anterior subcutaneous soft tissues of the ankle containing surgical drain. Multiple ill-defined probable dystrophic calcifications within the distal calf. ADDITIONAL FINDINGS: No ankle effusion or cortical destruction to suggest septic arthritis/osteomyelitis - Medical Decision Making Patient is a 35-year-old male who presents emergency room with worsening right lower extremity pain. Patient has a long history of lymphedema and had a recent abscess in the right lower extremity which required hospitalization, IV antibiotics and drain placement. Patient still has the drain in place. Patient states he came to the emergency room because the pain and swelling and redness are worsening and he felt feverish. Patient currently on oral Bactrim. Patient given Zosyn and Vanco as well as Dilaudid and Zofran. Patient's pain improved with Dilaudid. Patient had labs done which were essentially unremarkable. Patient's lactic acid was negative. Patient's white count was normal. Patient had a x-ray done which showed osteomyelitis and septic joint. I personally reviewed the x-ray. Patient's chart was requested from [facility]. Patient treated with Sirs and patient given early antibiotics, after initial evaluation. Patient admitted to the hospital service for further evaluation treatment. Critical care time documented due to the multiple reassessments, prolonged time at the bedside, interpretation of diagnostics and labs. - Differential Diagnosis Osteomyelitis, abscess, cellulitis, right lower extremity pain, Critical Care Time: Yes Critical care time in (mins) excluding proc time.: 35 Critical care attestation.: If time is entered above; I have spent that time in minutes in the direct care of this critically ill patient, excluding procedure time. Critical Care Time: 35 minutes ED Disposition Clinical Impression: Lymphedema, Abscess of right lower extremity, SIRS (systemic inflammatory response syndrome), Hyperglycemia Cellulitis Qualifiers: Site of cellulitis: extremity Site of cellulitis of extremity: lower extremity Laterality: right Qualified Code(s): L03.115 - Cellulitis of right lower limb Osteomyelitis Qualifiers: Osteomyelitis type: unspecified type Osteomyelitis location: unspecified site Qualified Code(s): M86.9 - Osteomyelitis, unspecified Disposition: 09 ADMITTED INPATIENT Is pt being admited?: Yes Does the pt Need Aspirin: No Condition: Critical Time of Disposition: 23:50
--- NOTE | 2020-09-29 23:42 | XRay Report ---
RIGHT ANKLE 2 VIEW(S) INDICATION / CLINICAL INFORMATION: lower ext pain COMPARISON: None available. FINDINGS: BONES / JOINT(S): No acute fracture or subluxation. No significant arthritis. SOFT TISSUES: Marked soft tissue swelling with small amount of gas within the anterior subcutaneous s oft tissues of the ankle containing surgical drain. Multiple ill-defined probable dystrophic calcific ations within the distal calf. ADDITIONAL FINDINGS: No ankle effusion or cortical destruction to suggest septic arthritis/osteomyeli tis Signer Name: Ever Mcallister MD Signed: 09/29/2020 11:38 PM Workstation Name: [id number]
[2020-09-30] MEDS ORDERED: HYDROmorphone 2 MG/1 ML INJ IV ONE (00:48)
[2020-09-30] MEDS ORDERED: ACETAMINOPHEN 325 MG TAB PO PRN (01:15)
[2020-09-30] MEDS ORDERED: ONDANSETRON 4 MG/2 ML INJ IV PRN (01:15)
[2020-09-30] MEDS ORDERED: DEXTROSE 50% IN WATER (25GM) 50 ML SYRINGE IV PRN (01:15)
[2020-09-30] MEDS ORDERED: MAGNESIUM HYDROXIDE (MOM) ORAL LIQD UDC PO PRN (01:15)
--- NOTE | 2020-09-30 01:31 | History and Physical Report ---
History of Present Illness Date of examination: 09/30/20 Date of admission: 09/30/2020 Chief complaint: Right lower extremity Pain History of present illness: 35-year-old -Spanish male with known history of diabetes mellitus presenting to the emergency room today with complaints of right leg extremity pain and swelling. Patient has known history of lymphedema since he was 19 years old. He has cellulitis on the right lower extremity and at this month, [facility] domenic[facility] on antibiotics for failed outpatient treatment. Was later seen at [facility] and admitted for abscess drainage. Patient states that the drain in his right lower extremity has since stopped walking and he has been having increasing swelling and pain in the right lower extremity. He is currently on Bactrim daily. He denies any fever or chills, no chest pain or shortness of breath, no nausea vomiting, no abdominal pain. Patient denies any sick contacts and no recent travel. Denies any contact with anyone with COVID-19. Work-up in the emergency room today, x-ray of the right ankle shows marked soft tissue swelling with small amount of gas within the anterior subcutaneous soft tissue. Multiple ill-defined probable dystrophic calcification within the distal calf. No ankle effusion or cortical destruction to suggest septic arthritis/osteomyelitis. Past History Past Medical History: diabetes, GERD, hypertension, other (Heart murmur. LYMPHEDEMA. OBESITY) Past Surgical History: Other (Right lower extremity abscess I&D with wound VAC placement) Social history: smoking (Current daily smoker) Family history: no significant family history Medications and Allergies Allergies Allergy/AdvReac Type Severity Reaction Status Date / Time acetaminophen Allergy Rash Verified 09/29/20 13:10 [From Darvocet-N] ketorolac tromethamine Allergy Rash Verified 09/29/20 13:10 [From Toradol] propoxyphene napsylate Allergy Rash Verified 09/29/20 13:10 [From Darvocet-N] tomato Allergy Itching Verified 09/29/20 13:10 tramadol Allergy Itching Verified 09/29/20 13:10 Home Medications Medication Instructions Recorded Confirmed Last Taken Type Insulin NPH/Regular [NovoLIN 70/30] 22 unit SQ BIDDIAB 30 Days ml 01/02/18 Unknown Rx Benzonatate [Tessalon Perles] 100 mg PO Q8HR #20 capsule 11/14/19 Unknown Rx guaiFENesin/CODEINE [Robitussin AC] 10 ml PO TID #100 ml 12/26/18 Unknown Rx Acetaminophen/Codeine [Tylenol 1 tab PO Q6H PRN #10 tab 03/05/19 Unknown Rx /Codeine # 3 tab] Ciprofloxacin HCl [Ciprofloxacin 500 mg PO Q12HR #20 tab 09/01/19 Unknown Rx TAB] HYDROcodone/APAP 5-325 [[place] 1 each PO Q6HR PRN #12 tablet 09/01/19 Unknown Rx 5-325 mg TAB] Lactobacillus Acidophilus 1 each PO DAILY #10 tablet 09/01/19 Unknown Rx [Probiotic Acidophilus] metroNIDAZOLE [Flagyl] 500 mg PO Q8HR #30 tablet 09/01/19 Unknown Rx Clindamycin [Clindamycin CAP] 300 mg PO Q8HR #60 capsule 05/20/20 Unknown Rx Ibuprofen [Motrin] 600 mg PO Q8H PRN #30 tablet 05/20/20 Unknown Rx Sulfamethoxazole/Trimethoprim 1 each PO Q12H #20 tablet 05/20/20 Unknown Rx [Bactrim DS TAB] Active Meds: Active Medications Acetaminophen (Acetaminophen 325 Mg Tab) 650 mg PO Q4H PRN PRN Reason: Pain MILD(1-3)/Fever >100.5/PACKER Dextrose (Dextrose 50% In Water (25gm) 50 Ml Syringe) 50 ml IV Q30MIN PRN; Protocol PRN Reason: Hypoglycemia Dextrose (Dextrose 50% In Water (25gm) 50 Ml Syringe) 50 ml IV Q30MIN PRN; Protocol PRN Reason: Hypoglycemia Heparin Sodium (Porcine) (Heparin 5,000 Unit/1 Ml Vial) 5,000 unit SUB-Q Q8HR KELLI Sodium Chloride (Nacl 0.9% 1000 Ml) 1,000 mls @ 125 mls/hr IV DIRECT KELLI Insulin Human Regular (Insulin Regular, Human 100 Units/1 Ml) 0 units SUB-Q ACHS KELLI; Protocol Insulin Human Regular (Insulin Regular, Human 100 Units/1 Ml) 0 units SUB-Q ACHS KELLI; Protocol Magnesium Hydroxide (Magnesium Hydroxide (Mom) Oral Liqd Udc) 30 ml PO Q4H PRN PRN Reason: Constipation Ondansetron HCl (Ondansetron 4 Mg/2 Ml Inj) 4 mg IV Q8H PRN PRN Reason: Nausea And Vomiting Sodium Chloride (Sodium Chloride 0.9% 10 Ml Flush Syringe) 10 ml IV BID KELLI Sodium Chloride (Sodium Chloride 0.9% 10 Ml Flush Syringe) 10 ml IV PRN PRN PRN Reason: LINE FLUSH Review of Systems Constitutional: no fever, no chills Ears, nose, mouth and throat: no nasal congestion, no sore throat Cardiovascular: no chest pain, no palpitations Respiratory: no cough, no shortness of breath Gastrointestinal: no abdominal pain, no nausea, no vomiting, no diarrhea Genitourinary Male: no dysuria, no hematuria, no flank pain, no nocturia Musculoskeletal: no neck pain, no low back pain Integumentary: no rash, no pruritis Neurological: no headaches, no confusion Psychiatric: no anxiety, no depression Endocrine: no polyphagia, no polydipsia, no polyuria, no nocturia Exam - Constitutional Vitals: Temp Pulse Resp BP Pulse Ox 98.7 F 83 22 146/84 96 09/29/20 13:14 09/30/20 01:00 09/30/20 01:00 09/30/20 01:00 09/30/20 01:00 General appearance: Present: no acute distress, well-nourished, obese - EENT Eyes: Present: PERRL, EOM intact. Absent: scleral icterus ENT: hearing intact, clear oral mucosa, dentition normal - Neck Neck: Present: supple, normal ROM - Respiratory Respiratory effort: normal Respiratory: bilateral: CTA - Cardiovascular Rhythm: regular Heart Sounds: Present: S1 & S2, systolic murmur. Absent: gallop, diastolic murmur, rub, click - Extremities Extremities: no ischemia, pulses intact, pulses symmetrical, No edema, normal temperature, normal color, Full ROM Extremity abnormal: edema (Lymphedema right lower extremity, Drain Catheter in right ankle,Mild tenderness.) Peripheral Pulses: within normal limits - Abdominal General gastrointestinal: Present: soft, non-tender, non-distended, normal bowel sounds. Absent: mass - Integumentary Integumentary: Present: clear, warm, dry. Absent: rash - Musculoskeletal Musculoskeletal: strength equal bilaterally - Psychiatric Psychiatric: appropriate mood/affect, intact judgment & insight, memory intact, cooperative - Neurologic Neurologic: CNII-XII intact, no focal deficits, moves all extremities Results - Labs CBC & Chem 7: 09/29/20 16:47 09/29/20 16:47 Labs: Abnormal lab results 09/29/20 09/29/20 Range/Units 16:47 16:47 MCHC 35 H (32-34) % RDW 12.7 L (13.2-15.2) % Plt Count 618 H (140-440) K/mm3 Sodium 131 L (137-145) mmol/L Chloride 95.0 L (98-107) mmol/L Creatinine 0.7 L (0.8-1.3) mg/dL Glucose 308 H (75-100) mg/dL Alkaline Phosphatase 138 H (35-129) units/L Total Protein 8.5 H (6.3-8.2) g/dL Assessment and Plan - Patient Problems (1) Abscess of right lower extremity Current Visit: Yes Status: Acute Plan to address problem: Patient has drain in place. We will continue on empiric IV antibiotics. (2) Cellulitis Current Visit: Yes Status: Acute Qualifiers: Site of cellulitis: extremity Site of cellulitis of extremity: lower extremity Laterality: right Qualified Code(s): L03.115 - Cellulitis of right lower limb Plan to address problem: Patient placed on empiric IV antibiotics. We will consult infectious disease for evaluation. (3) DVT prophylaxis Current Visit: No Status: Acute Plan to address problem: Patient presents subcutaneous heparin. (4) Full code status Current Visit: No Status: Acute Plan to address problem: Patient is full code
[2020-09-30] MEDS: HYDROmorphone 1 MG/1 ML INJ IV PRN ×4 (05:54→21:19)
[2020-09-30] MEDS: HEPARIN 5,000 UNIT/1 ML VIAL SUB-Q SCH ×2 (05:55→15:58)
[2020-09-30] MEDS ORDERED: INSULIN REGULAR, HUMAN 100 UNITS/1 ML SUB-Q SCH (07:30)
[2020-09-30] MEDS ORDERED: VANCOMYCIN PHARMACY TO DOSE IV SCH (08:00)
[2020-09-30] MEDS: PIPERACIL/TAZOBACTA 4.5/NS 100 4.5 GM/100 ML VIAL IV SCH ×2 (09:29→18:49)
[2020-09-30] MEDS: SODIUM CHLORIDE 0.9% 1000 ML 1,000 ML IV SCH (09:32)
[2020-09-30] MEDS: INSULIN REGULAR, HUMAN 100 UNITS/1 ML SUB-Q SCH ×4 (09:45→23:34)
[2020-09-30] MEDS ORDERED: VANCOMYCIN 2,000 MG in SODIUM CHLORIDE 0.9% 500 ML 500 ML IV SCH (10:00)
--- NOTE | 2020-09-30 16:06 | Consultation ---
History of Present Illness - Reason for Consult Consult date: 09/30/20 Right leg infection / osteo Requesting physician: BECKA DON - History of Present Illness The patient is a 35-year-old male with diabetes was admitted to the hospital with right leg swelling and pain. He has had longstanding right lower extremity lymphedema for the more than 20 years due to trauma. He was recently hospitalized at [facility] with distal right leg cellulitis and abscess, underwent CT-guided drainage with cultures growing group B streptococcus. He was discharged on 14 days of oral Augmentin with an end date of 10/06/2020. It seems his drain stopped working, he felt feverish and came here. No fever here, labs with normal WBC, platelet count is elevated, labs also show hyperglycemia. X-ray of the right ankle showed no effusion or cortical destruction. Review of Systems: General: subjective fever HEENT: no new visual disturbance Respiratory: No cough, sputum, hemoptysis or shortness of breath Cardiovascular: No chest pain, syncope Gastrointestinal: No nausea, vomiting or diarrhea Genitourinary: No dysuria or hematuria Musculoskeletal: No new or worsening neck pain or back pain Neurologic: No headaches, seizures Hematologic: No easy bruising or bleeding Endocrine: No night sweats or acute weight loss Skin: negative for rash, jaundice Psychiatric: No suicidal or homicidal ideation Past History Past Medical History: diabetes, GERD, hypertension, other (Heart murmur. L YMPHEDEMA. OBESITY) Past Surgical History: Other (Right lower extremity abscess I&D with wound VAC placement) Social history: smoking (Current daily smoker) Family history: no significant family history Medications and Allergies Allergies Allergy/AdvReac Type Severity Reaction Status Date / Time acetaminophen Allergy Rash Verified 09/29/20 13:10 [From Darvocet-N] ketorolac tromethamine Allergy Rash Verified 09/29/20 13:10 [From Toradol] propoxyphene napsylate Allergy Rash Verified 09/29/20 13:10 [From Darvocet-N] tomato Allergy Itching Verified 09/29/20 13:10 tramadol Allergy Itching Verified 09/29/20 13:10 Home Medications Medication Instructions Recorded Confirmed Last Taken Type Insulin NPH/Regular [NovoLIN 70/30] 22 unit SQ BIDDIAB 30 Days ml 01/02/18 Unknown Rx Benzonatate [Tessalon Perles] 100 mg PO Q8HR #20 capsule 12/26/18 Unknown Rx guaiFENesin/CODEINE [Robitussin AC] 10 ml PO TID #100 ml 12/26/18 Unknown Rx Acetaminophen/Codeine [Tylenol 1 tab PO Q6H PRN #10 tab 03/05/19 Unknown Rx /Codeine # 3 tab] Ciprofloxacin HCl [Ciprofloxacin 500 mg PO Q12HR #20 tab 09/01/19 Unknown Rx TAB] HYDROcodone/APAP 5-325 [[place] 1 each PO Q6HR PRN #12 tablet 09/01/19 Unknown Rx 5-325 mg TAB] Lactobacillus Acidophilus 1 each PO DAILY #10 tablet 09/01/19 Unknown Rx [Probiotic Acidophilus] metroNIDAZOLE [Flagyl] 500 mg PO Q8HR #30 tablet 09/01/19 Unknown Rx Clindamycin [Clindamycin CAP] 300 mg PO Q8HR #60 capsule 05/20/20 Unknown Rx Ibuprofen [Motrin] 600 mg PO Q8H PRN #30 tablet 05/20/20 Unknown Rx Sulfamethoxazole/Trimethoprim 1 each PO Q12H #20 tablet 05/20/20 Unknown Rx [Bactrim DS TAB] Active Meds: Active Medications Acetaminophen (Acetaminophen 325 Mg Tab) 650 mg PO Q4H PRN PRN Reason: Pain MILD(1-3)/Fever >100.5/PACKER Dextrose (Dextrose 50% In Water (25gm) 50 Ml Syringe) 50 ml IV Q30MIN PRN; Protocol PRN Reason: Hypoglycemia Heparin Sodium (Porcine) (Heparin 5,000 Unit/1 Ml Vial) 5,000 unit SUB-Q Q8HR [facility]LLI Last Admin: 09/30/20 15:58 Dose: 5,000 unit Documented by: Hydromorphone HCl (Hydromorphone 1 Mg/1 Ml Inj) 1 mg IV Q4H PRN PRN Reason: Pain , Severe (7-10) Last Admin: 09/30/20 12:15 Dose: 1 mg Documented by: Sodium Chloride (Nacl 0.9% 1000 Ml) 1,000 mls @ 125 mls/hr IV DIRECT KELLI Last Admin: 09/30/20 09:32 Dose: 125 mls/hr Documented by: Piperacillin Sod/Tazobactam Sod (Zosyn/Ns 4.5gm/100ml) 4.5 gm in 100 mls @ 200 mls/hr IV Q8H [facility]; Protocol Last Admin: 09/30/20 09:29 Dose: 200 mls/hr Documented by: Vancomycin HCl 2,000 mg/ (Sodium Chloride) 540 mls @ 250 mls/hr IV Q12HR [facility] Last Admin: 09/30/20 11:04 Dose: 250 mls/hr Documented by: Insulin Human Regular (Insulin Regular, Human 100 Units/1 Ml) 0 units SUB-Q ACHS [facility]; Protocol Last Admin: 09/30/20 12:11 Dose: 4 units Documented by: Magnesium Hydroxide (Magnesium Hydroxide (Mom) Oral Liqd Udc) 30 ml PO Q4H PRN PRN Reason: Constipation Ondansetron HCl (Ondansetron 4 Mg/2 Ml Inj) 4 mg IV Q8H PRN PRN Reason: Nausea And Vomiting Sodium Chloride (Sodium Chloride 0.9% 10 Ml Flush Syringe) 10 ml IV BID [facility] Last Admin: 09/30/20 11:05 Dose: 10 ml Documented by: Sodium Chloride (Sodium Chloride 0.9% 10 Ml Flush Syringe) 10 ml IV PRN PRN PRN Reason: LINE FLUSH Physical Examination - Physical Exam Narrative exam: Physical Exam: Constitutional: Alert, cooperative. No acute distress Head, Ears, Nose: Normocephalic, atraumatic. External ears, nose normal Eyes: Conjunctivae/corneas clear. No icterus. No ptosis. Neck: Supple, no meningeal signs Cardiovascular: S1, S2 + Respiratory: Good air entry, clear to auscultation bilaterally GI: Soft, non-tender; bowel sounds normal. No peritoneal signs Musculoskeletal: RLE with significant lymphedema, distally with a drain, wound + Skin: No rash or abscess Hem/Lymphatic: No palpable cervical or supraclavicular nodes. No lymphangitis Psych: Mood ok. Affect normal Neurological: Awake, alert, oriented. No gross abnormality - Constitutional Vitals: Vital Signs Temp Pulse Resp BP Pulse Ox 98.7 F 83 15 146/89 98 09/29/20 13:14 09/30/20 13:01 09/30/20 13:01 09/30/20 13:01 09/30/20 13:01 Results - Labs CBC & Chem 7: 09/29/20 16:47 09/29/20 16:47 Labs: Abnormal lab results 09/29/20 09/29/20 09/30/20 Range/Units 16:47 16:47 12:00 MCHC 35 H (32-34) % RDW 12.7 L (13.2-15.2) % Plt Count 618 H (140-440) K/mm3 Sodium 131 L (137-145) mmol/L Chloride 95.0 L (98-107) mmol/L Creatinine 0.7 L (0.8-1.3) mg/dL Glucose 308 H (75-100) mg/dL POC Glucose 278 H (70-105) mg/dL Alkaline Phosphatase 138 H (35-129) units/L Total Protein 8.5 H (6.3-8.2) g/dL Assessment and Plan Cultures: 09/29/2020 blood culture: In process A/P: 35-year-old male with diabetes was admitted to the hospital with right leg swelling and pain, long history of lymphedema in E since 20 years following trauma. He was recently hospitalized at [facility] with distal right leg cellulitis and abscess, underwent CT-guided drainage with cultures growing group B streptococcus. He was discharged on 14 days of oral Augmentin with an end date of 10/06/2020: #Right leg cellulitis, recent abscess drained by IR at [facility]: Cultures grew group B streptococcus #Diabetes mellitus, uncontrolled #Morbid obesity Recs: -Based on cultures from [facility], recommend treating with IV Ancef 3 g every 8 hours given morbid obesity -MRI of right lower extremity ordered to evaluate for any undrained pockets of abscess/infection Mukesh Fox MD, FACP [facility] ([facility] O: [phone] F: [phone]
[2020-09-30] MEDS ORDERED: PIPERACIL/TAZOBACTA 4.5/NS 100 0 GM/0 ML VIAL IV ONE (17:07)
--- NOTE | 2020-09-30 17:33 | Event Note ---
Date: 09/30/20 Patient seen and examined this morning. No acute distress. He did does have a wound in the leg with retained drain. Will consult Ortho to further help with evaluating. There is concern of osteomyelitis. ID is already consulted. We will also order PT OT. We will try to obtain records from [place] where the patient was initially treated.
--- NOTE | 2020-09-30 19:17 | Consultation ---
History of Present Illness Consult date: 09/30/20 - History of present illness History of present illness: 35 yo diabetic male with massive RLE lymphedema. He is about 1 week s/p drain placement just above the right ankle secondary to an infection. Past History Past Medical History: diabetes, GERD, hypertension, other (Heart murmur. LYMPHEDEMA. OBESITY) Past Surgical History: Other (Right lower extremity abscess I&D with wound VAC placement) Social history: smoking (Current daily smoker) Family history: no significant family history Medications and Allergies Allergies Allergy/AdvReac Type Severity Reaction Status Date / Time acetaminophen Allergy Rash Verified 09/29/20 13:10 [From Darvocet-N] ketorolac tromethamine Allergy Rash Verified 09/29/20 13:10 [From Toradol] propoxyphene napsylate Allergy Rash Verified 09/29/20 13:10 [From Darvocet-N] tomato Allergy Itching Verified 09/29/20 13:10 tramadol Allergy Itching Verified 09/29/20 13:10 Home Medications Medication Instructions Recorded Confirmed Last Taken Type Insulin NPH/Regular [NovoLIN 70/30] 22 unit SQ BIDDIAB 30 Days ml 01/02/18 Unknown Rx Benzonatate [Tessalon Perles] 100 mg PO Q8HR #20 capsule 12/26/18 Unknown Rx guaiFENesin/CODEINE [Robitussin AC] 10 ml PO TID #100 ml 12/26/18 Unknown Rx Acetaminophen/Codeine [Tylenol 1 tab PO Q6H PRN #10 tab 03/05/19 Unknown Rx /Codeine # 3 tab] Ciprofloxacin HCl [Ciprofloxacin 500 mg PO Q12HR #20 tab 09/01/19 Unknown Rx TAB] HYDROcodone/APAP 5-325 [[place] 1 each PO Q6HR PRN #12 tablet 09/01/19 Unknown Rx 5-325 mg TAB] Lactobacillus Acidophilus 1 each PO DAILY #10 tablet 09/01/19 Unknown Rx [Probiotic Acidophilus] metroNIDAZOLE [Flagyl] 500 mg PO Q8HR #30 tablet 09/01/19 Unknown Rx Clindamycin [Clindamycin CAP] 300 mg PO Q8HR #60 capsule 05/20/20 Unknown Rx Ibuprofen [Motrin] 600 mg PO Q8H PRN #30 tablet 05/20/20 Unknown Rx Sulfamethoxazole/Trimethoprim 1 each PO Q12H #20 tablet 05/20/20 Unknown Rx [Bactrim DS TAB] Active Meds: Active Medications Acetaminophen (Acetaminophen 325 Mg Tab) 650 mg PO Q4H PRN PRN Reason: Pain MILD(1-3)/Fever >100.5/PACKER Dextrose (Dextrose 50% In Water (25gm) 50 Ml Syringe) 50 ml IV Q30MIN PRN; Protocol PRN Reason: Hypoglycemia Heparin Sodium (Porcine) (Heparin 5,000 Unit/1 Ml Vial) 5,000 unit SUB-Q Q8HR [facility] Last Admin: 09/30/20 15:58 Dose: 5,000 unit Documented by: Hydromorphone HCl (Hydromorphone 1 Mg/1 Ml Inj) 1 mg IV Q4H PRN PRN Reason: Pain , Severe (7-10) Last Admin: 09/30/20 16:45 Dose: 1 mg Documented by: Sodium Chloride (Nacl 0.9% 1000 Ml) 1,000 mls @ 125 mls/hr IV DIRECT KELLI Last Admin: 09/30/20 09:32 Dose: 125 mls/hr Documented by: Cefazolin Sodium 3 gm/ Sodium (Chloride) 100 mls @ 200 mls/hr IV Q8H [facility]; Protocol Last Admin: 09/30/20 17:35 Dose: 200 mls/hr Documented by: Insulin Human Regular (Insulin Regular, Human 100 Units/1 Ml) 0 units SUB-Q ACHS [facility]; Protocol Last Admin: 09/30/20 17:31 Dose: 3 units Documented by: Magnesium Hydroxide (Magnesium Hydroxide (Mom) Oral Liqd Udc) 30 ml PO Q4H PRN PRN Reason: Constipation Ondansetron HCl (Ondansetron 4 Mg/2 Ml Inj) 4 mg IV Q8H PRN PRN Reason: Nausea And Vomiting Sodium Chloride (Sodium Chloride 0.9% 10 Ml Flush Syringe) 10 ml IV BID [facility] Last Admin: 09/30/20 11:05 Dose: 10 ml Documented by: Sodium Chloride (Sodium Chloride 0.9% 10 Ml Flush Syringe) 10 ml IV PRN PRN PRN Reason: LINE FLUSH Review of Systems All systems: negative (none) Exam Vital Signs Temp Pulse Resp BP Pulse Ox 98.7 F 94 H 16 143/94 98 09/29/20 13:14 09/29/20 13:14 09/29/20 13:14 09/29/20 13:14 09/29/20 13:14 - General physical appearance Positive: well developed, well nourished, no distress - Eyes Positive: PERRL, normal occular movement - ENT Positive: normal pinna, normal nares, normal mucosa, no hearing loss, no congestion - Neck Positive: no masses, no bruits, trachea midline, no venous distension - Respiratory Positive: normal expansion, normal respiratory effort, clear to auscultation - Cardiovascular Rhythm: regular Heart Sounds: Present: S1 & S2. Absent: rub, click - Extremities Extremities: abnormal (There is a 5 X 9 X 0.1 cm necrotic eschar just above the right ankle. Pus is emanating from the eschar. A drain is emanating from the eschar. ) - Breasts Breasts: normal, no mass, no skin changes - Abdomen Abdomen: Present: soft, bowel sounds normal. Absent: tender, distended Hernia: none - Genitourinary Male Genitourinary: normal Female Genitourinary: normal - Integumentary no rash, no growths, no abnormal pigmentation - Neurologic Neurologic: alert and oriented to time, place and person, motor strength and sensation are grossly intact - Musculoskeletal normal gait, normal posture - Psychiatric Psychiatric: appropriate mood/affect, intact judgment & insight Results - Labs 10/01/20 04:44 10/01/20 04:44 Abnormal lab results 09/30/20 09/30/20 Range/Units 12:00 17:19 POC Glucose 278 H 223 H (70-105) mg/dL - Imaging Additional studies: MRI of right leg was reviewed. Assessment and Plan - Patient Problems (1) Pyogenic ulcer of right calf with fat layer exposed Current Visit: Yes Status: Acute Plan to address problem: 1) NPO after MN 2) Debride right leg wound, possibly tomorrow. (2) Abscess of right lower extremity Current Visit: Yes Status: Acute Plan to address problem: 1) NPO after MN 2) I&D of right leg abscess tomorrow 3) IV Ancef
[2020-10-01] MEDS: HEPARIN 5,000 UNIT/1 ML VIAL SUB-Q SCH ×4 (02:04→21:07)
[2020-10-01] MEDS: HYDROmorphone 1 MG/1 ML INJ IV PRN ×7 (04:35→21:07)
[2020-10-01 05:36] LABS: Basophils % (Auto) 0.3 % (0.0-1.8); Eosinophils # (Auto) 0.1 K/mm3 (0.0-0.4); Eosinophils % (Auto) 1.2 % (0.0-4.3); Lymphocytes % (Auto) 35.9 % (13.4-35.0); Mean Corpuscular HGB Conc 36 % (32-34); Mean Corpuscular Volume 92 fl (84-94); Monocytes # (Auto) 0.4 K/mm3 (0.0-0.8); Monocytes % (Auto) 7.9 % (0.0-7.3); Platelet Count 449 K/mm3 (140-440); Red Blood Count 3.85 M/mm3 (3.65-5.03); Red Cell Distribution Width 12.8 % (13.2-15.2)
[2020-10-01 05:42] LABS: Hematocrit 35.4 % (35.5-45.6); Hemoglobin 12.9 gm/dl (11.8-15.2)
[2020-10-01 05:55] LABS: Blood Urea Nitrogen 11 mg/dL (9-20); Calcium 9.1 mg/dL (8.4-10.2); Hemolysis Index 2
[2020-10-01 06:14] LABS: BUN/Creatinine Ratio 18
[2020-10-01] MEDS: INSULIN REGULAR, HUMAN 100 UNITS/1 ML SUB-Q SCH ×4 (09:48→21:45)
[2020-10-01] MEDS: SODIUM CHLORIDE 0.9% 1000 ML 1,000 ML IV SCH (09:56)
[2020-10-01] MEDS ORDERED: ONDANSETRON 4 MG/2 ML INJ IV PRN (10:54)
--- NOTE | 2020-10-01 10:54 | Anesthesia Consultation ---
Anesthesia Consult and Med Hx Date of service: 10/01/20 - Airway Anesthetic Teeth Evaluation: Good ROM Head & Neck: Adequate Mental/Hyoid Distance: Adequate Mallampati Class: Class I Intubation Access Assessment: Probably Good - Pre-Operative Health Status ASA Pre-Surgery Classification: ASA3 Proposed Anesthetic Plan: General - Pulmonary Hx Smoking: Yes Hx Respiratory Symptoms: No - Cardiovascular System Hx Hypertension: Yes Hx Heart Attack/AMI: No Hx Percutaneous Transluminal Coronary Angioplasty (PTCA): No Hx Peripheral Vascular Disease: Yes (lymphedema) - Central Nervous System CVA: No Hx Psychiatric Problems: Yes (anxiety) - Endocrine Hx Renal Disease: No Hx Liver Disease: No Hx Insulin Dependent Diabetes: Yes Hx Thyroid Disease: No - Other Systems Hx Obesity: Yes (BMI 41) - Additional Comments Anesthesia Medical History Comments: Hx PONV. Scheduled for debridement of leg wound.
--- NOTE | 2020-10-01 10:55 | Anesthesia Day of Surgery ---
Anesthesia Day of Surgery - Day of Surgery Patient Examined: Yes Patient H&P Reviewed: Yes Patient is NPO: Yes
[2020-10-01] MEDS ORDERED: SCOPOLAMINE TRANSDERMAL PATCH 72 HR TD ONE (11:00)
--- NOTE | 2020-10-01 11:02 | Magnetic Resonance Report ---
MRI RIGHT ANKLE WITHOUT AND WITH CONTRAST INDICATION / CLINICAL INFORMATION: RLE abscess, diabetic, drain +. TECHNIQUE: Multiplanar, multisequence MR images were obtained. Pre and postcontrast sequences were ob tained. COMPARISON: None available. FINDINGS: Severe cellulitis throughout the extensive soft tissues around the right ankle and lower leg. There i s a draining subcutaneous abscess which measures approximately 6 x 4 x 3.5 cm along the anterior lowe r leg at the level of the ankle joint.. There are a scattered foci of soft tissue gas within the infl tanesha soft tissues about the lower leg and ankle joint. No abnormal marrow signal intensity to suggest underlying osteomyelitis at this time. Tendons and ligaments about the right ankle are unremarkable. IMPRESSION: Gas gangrene of the right lower extremity with the anterior draining subcutaneous abscess as detailed above. No evidence of osteomyelitis. Report dictated by: Leon Dykes MD Report dictated on: 10/01/2020 9:25 AM I have reviewed the images, agree with this report, and edited this report as needed. Signer Name: Gamaliel Bryan MD Signed: 10/01/2020 10:57 AM Workstation Name: [id number]
[2020-10-01] MEDS ORDERED: MIDAZOLAM 2 MG/2 ML INJ ONE (11:46)
[2020-10-01] MEDS ORDERED: propofoL 200 MG/20 ML VIAL IV ONE ×2 (11:47→15:06)
[2020-10-01] MEDS ORDERED: ONDANSETRON 4 MG/2 ML INJ ONE (12:30)
[2020-10-01] MEDS ORDERED: LIDOCAINE MPF (2%) 20 MG/1 ML VIAL 5 ML ONE (12:30)
[2020-10-01] MEDS ORDERED: SODIUM CHLORIDE 0.9% IRR 1,500 ML BOTTLE IR ONE (12:39)
[2020-10-01] MEDS ORDERED: SODIUM HYPOCHLORITE, DAKIN'S FULL STRENGTH (0.5%) 473 ML TOPICAL SOLN TP PRN (12:46)
--- NOTE | 2020-10-01 12:46 | Procedure Note ---
Date of procedure: 10/01/20 Pre-op diagnosis: Right leg abscess Post-op diagnosis: same Procedure: I&D of deep right leg abscess Description of procedure: Pt was placed supine on the OR table. General anesthesia was administered. Right leg and foot were prepped and draped. The necrotic eschar was excised with the Bovie resulting in drainage of a moderate amount of pus. Pus was sent for C&S. Necrotic SQ tissue was excised with forceps and scissors. Bleeding was minimal and was controlled with the Bovie. Wound was irrigated with warm saline. Wound was packed open with a dilute Betadine moistened Kerlix roll followed by dry 4 X 4's and a Kerlix wrap about the lower leg. Pt tolerated the procedure well and was taken to PACU in stable condition. Anesthesia: other (LMA) Surgeon: GIO ERICKSON Estimated blood loss: minimal Pathology: list (C&S) Specimen disposition: to lab Condition: stable Disposition: PACU
--- NOTE | 2020-10-01 13:02 | Event Note ---
Date: 10/01/20 Lower extremity MRI showed no osteomyelitis, showed gas gangrene of right lower extremity with subcutaneous abscess. Patient was seen by general surgery and is currently off the floor for procedure. Antibiotics switched to cefepime, vancomycin and Flagyl Follow-up deep cultures from OR
[2020-10-01] MEDS ORDERED: VANCOMYCIN PHARMACY TO DOSE IV SCH (14:00)
[2020-10-01] MEDS ORDERED: VANCOMYCIN 2,000 MG in SODIUM CHLORIDE 0.9% 500 ML 500 ML IV ONE (14:00)
[2020-10-01] MEDS: metroNIDAZOLE/NS 500 MG/100 ML 500 MG/100 ML BAG IV SCH ×2 (14:06→22:39)
[2020-10-01] MEDS: CEFEPIME/NS 2 GM/100 ML 2 GM/100 ML BAG IV SCH ×2 (14:06→21:06)
--- NOTE | 2020-10-01 14:39 | Progress Note ---
Assessment and Plan Assessment and plan: 35-year-old -[place] male with known history of diabetes mellitus presenting to the emergency room today with complaints of right leg extremity pain and swelling. Patient has known history of lymphedema since he was 19 years old. He has cellulitis on the right lower extremity and at this month, started on antibiotics for failed outpatient treatment. Was later seen at [facility] and admitted for abscess drainage. Patient states that the drain in his right lower extremity has since stopped walking and he has been having increasing swelling and pain in the right lower extremity. He is currently on Bactrim daily. He denies any fever or chills, no chest pain or shortness of breath, no nausea vomiting, no abdominal pain. Patient denies any sick contacts and no recent travel. Denies any contact with anyone with COVID-19. Work-up in the emergency room today, x-ray of the right ankle shows marked soft tissue swelling with small amount of gas within the anterior subcutaneous soft tissue. Multiple ill-defined probable dystrophic calcification within the distal calf. No ankle effusion or cortical destruction to suggest septic arthritis/osteomyelitis. 10/01: Patient is status post I&D today. MRI was done which did not reveal any Osteomyelitis but showed gas gangrene of right lower extremity with subcutaneous abscess. Antibiotics has been switched to cefepime, vancomycin, and Flagyl while we await cultures from the OR. Will adjust insulin for tight glycemic control. Continue wound care management (1) Abscess of right lower extremity Current Visit: Yes Status: Acute Plan to address problem: Patient has drain in place. We will continue on empiric IV antibiotics. (2) Cellulitis Current Visit: Yes Status: Acute Qualifiers: Site of cellulitis: extremity Site of cellulitis of extremity: lower extremity Laterality: right Qualified Code(s): L03.115 - Cellulitis of right lower limb Plan to address problem: Patient placed on empiric IV antibiotics. We will consult infectious disease for evaluation. (3) Diabetes mellitus (4) DVT prophylaxis Current Visit: No Status: Acute Plan to address problem: Patient presents subcutaneous heparin. (5) Full code status Current Visit: No Status: Acute Plan to address problem: Patient is full code History Interval history: Patient seen and examined no distress at this time. Continue current management Hospitalist Physical - Physical exam Narrative exam: General appearance: Present: no acute distress, well-nourished, obese - EENT Eyes: Present: PERRL, EOM intact. Absent: scleral icterus ENT: hearing intact, clear oral mucosa, dentition normal - Neck Neck: Present: supple, normal ROM - Respiratory Respiratory effort: normal Respiratory: bilateral: CTA - Cardiovascular Rhythm: regular Heart Sounds: Present: S1 & S2, systolic murmur. Absent: gallop, diastolic murmur, rub, click - Extremities Extremities: no ischemia, pulses intact, pulses symmetrical, No edema, normal temperature, normal color, Full ROM Extremity abnormal: edema (Lymphedema right lower extremity, Drain Catheter in right ankle,Mild tenderness.) Peripheral Pulses: within normal limits - Abdominal General gastrointestinal: Present: soft, non-tender, non-distended, normal bowel sounds. Absent: mass - Integumentary Integumentary: Present: clear, warm, dry. Absent: rash - Musculoskeletal Musculoskeletal: strength equal bilaterally - Psychiatric Psychiatric: appropriate mood/affect, intact judgment & insight, memory intact, cooperative - Neurologic Neurologic: CNII-XII intact, no focal deficits, moves all extremities - Constitutional Vitals: Temp Pulse Resp BP Pulse Ox 97.5 F L 73 20 143/82 100 10/01/20 14:00 10/01/20 14:00 10/01/20 14:00 10/01/20 14:00 10/01/20 14:00 General appearance: Present: no acute distress, well-nourished, obese Results - Labs CBC & Chem 7: 10/01/20 04:44 10/01/20 04:44 Labs: Laboratory Last Values WBC 5.5 K/mm3 (4.5-11.0) 10/01/20 04:44 RBC 3.85 M/mm3 (3.65-5.03) 10/01/20 04:44 Hgb 12.9 gm/dl (11.8-15.2) 10/01/20 04:44 Hct 35.4 % (35.5-45.6) L D 10/01/20 04:44 MCV 92 fl (84-94) 10/01/20 04:44 MCH 33 pg (28-32) H 10/01/20 04:44 MCHC 36 % (32-34) H 10/01/20 04:44 RDW 12.8 % (13.2-15.2) L 10/01/20 04:44 Plt Count 449 K/mm3 (140-440) H 10/01/20 04:44 Lymph % (Auto) 35.9 % (13.4-35.0) H 10/01/20 04:44 [place] % (Auto) 7.9 % (0.0-7.3) H 10/01/20 04:44 Eos % (Auto) 1.2 % (0.0-4.3) 10/01/20 04:44 Baso % (Auto) 0.3 % (0.0-1.8) 10/01/20 04:44 Lymph # (Auto) 2.0 K/mm3 (1.2-5.4) 10/01/20 04:44 [place] # (Auto) 0.4 K/mm3 (0.0-0.8) 10/01/20 04:44 Eos # (Auto) 0.1 K/mm3 (0.0-0.4) 10/01/20 04:44 Baso # (Auto) 0.0 K/mm3 (0.0-0.1) 10/01/20 04:44 Seg Neutrophils % 54.7 % (40.0-70.0) 10/01/20 04:44 Seg Neutrophils # 3.0 K/mm3 (1.8-7.7) 10/01/20 04:44 Sodium 133 mmol/L (137-145) L 10/01/20 04:44 Potassium 4.1 mmol/L (3.6-5.0) 10/01/20 04:44 Chloride 99.1 mmol/L (98-107) 10/01/20 04:44 Carbon Dioxide 26 mmol/L (22-30) 10/01/20 04:44 Anion Gap 12 mmol/L 10/01/20 04:44 BUN 11 mg/dL (9-20) 10/01/20 04:44 Creatinine 0.6 mg/dL (0.8-1.3) L 10/01/20 04:44 Estimated GFR > 60 ml/min 10/01/20 04:44 BUN/Creatinine Ratio 18 % 10/01/20 04:44 Glucose 298 mg/dL (75-100) H 10/01/20 04:44 POC Glucose 238 mg/dL (70-105) H 10/01/20 12:53 Lactic Acid 1.70 mmol/L (0.7-2.0) 09/29/20 16:47 Calcium 9.1 mg/dL (8.4-10.2) 10/01/20 04:44 Total Bilirubin 0.30 mg/dL (0.1-1.2) 09/29/20 16:47 AST 16 units/L (5-40) 09/29/20 16:47 ALT 31 units/L (7-56) 09/29/20 16:47 Alkaline Phosphatase 138 units/L (35-129) H 09/29/20 16:47 Total Protein 8.5 g/dL (6.3-8.2) H 09/29/20 16:47 Albumin 3.9 g/dL (3.9-5) 09/29/20 16:47 Albumin/Globulin Ratio 0.8 % 09/29/20 16:47 Microbiology: Microbiology 09/29/20 16:47 Peripheral/Venous Blood Culture - Preliminary NO GROWTH AFTER 24 HOURS 09/29/20 16:47 Peripheral/Venous Blood Culture - Preliminary NO GROWTH AFTER 24 HOURS Active Medications - Current Medications Current Medications: Generic Name Dose Route Start Last Admin Trade Name Freq PRN Reason Stop Dose Admin Acetaminophen 650 mg 09/30/20 01:15 Acetaminophen 325 Mg Tab PO Q4H PRN Pain MILD(1-3)/Fever >100.5/PACKER Dextrose 50 ml 09/30/20 01:15 Dextrose 50% In Water (25gm) 50 Ml Syringe IV Q30MIN PRN Hypoglycemia Protocol Heparin Sodium (Porcine) 5,000 unit 09/30/20 06:00 10/01/20 14:36 Heparin 5,000 Unit/1 Ml Vial SUB-Q 5,000 unit Q8HR KELLI Administration Hydromorphone HCl 1 mg 09/30/20 05:38 10/01/20 09:55 Hydromorphone 1 Mg/1 Ml Inj IV 1 mg Q4H PRN Administration Pain , Severe (7-10) Hydromorphone HCl 0.5 mg 10/01/20 10:54 10/01/20 13:16 Hydromorphone 1 Mg/1 Ml Inj IV 0.5 mg Q10MIN PRN Administration Pain , Severe (7-10) Sodium Chloride 1,000 mls @ 125 mls/hr 09/30/20 01:15 10/01/20 09:56 Nacl 0.9% 1000 Ml IV 125 mls/hr DIRECT KELLI Administration Cefepime HCl 2 gm in 100 mls @ 200 mls/hr 10/01/20 14:00 10/01/20 14:06 Cefepime/Ns 2 Gm/100 Ml IV 200 mls/hr Q8HR KELLI Administration Protocol Metronidazole 500 mg in 100 mls @ 100 mls/hr 10/01/20 14:00 10/01/20 14:06 Flagyl 500 Mg/100 Ml IV 100 mls/hr Q8H KELLI Administration Protocol Vancomycin HCl 2,000 mg/ 540 mls @ 333 mls/hr 10/01/20 14:00 Sodium Chloride IV 10/01/20 15:37 ONCE ONE Protocol Vancomycin HCl 2,000 mg/ 540 mls @ 360 mls/hr 10/01/20 23:00 Sodium Chloride IV Q12H KELLI Insulin Glargine 25 units 10/01/20 22:00 Insulin Glargine 100 Units/Ml SUB-Q QHS [facility] Insulin Human Regular 0 units 09/30/20 07:30 10/01/20 14:06 Insulin Regular, Human 100 Units/1 Ml SUB-Q 4 units ACHS [facility] Administration Protocol Magnesium Hydroxide 30 ml 09/30/20 01:15 Magnesium Hydroxide (Mom) Oral Liqd Udc PO Q4H PRN Constipation Ondansetron HCl 4 mg 09/30/20 01:15 Ondansetron 4 Mg/2 Ml Inj IV Q8H PRN Nausea And Vomiting Ondansetron HCl 4 mg 10/01/20 10:54 Ondansetron 4 Mg/2 Ml Inj IV ONCE PRN Nausea And Vomiting Sodium Chloride 10 ml 09/30/20 10:00 10/01/20 09:55 Sodium Chloride 0.9% 10 Ml Flush Syringe IV 10 ml BID KELLI Administration Sodium Chloride 10 ml 09/30/20 01:15 Sodium Chloride 0.9% 10 Ml Flush Syringe IV PRN PRN LINE FLUSH Sodium Hypochlorite 1 applic 10/01/20 12:46 Sodium Hypochlorite, Dakin's Full Strength (0.5%) 473 Ml Topical Soln TP Q12H PRN Wound Care
[2020-10-01] MEDS ORDERED: fentaNYL 100 MCG/2 ML INJ ONE (15:06)
--- NOTE | 2020-10-01 16:55 | Post Anesthesia Evaluation ---
- Post Anesthesia Evaluation Patient Participated: Yes Airway Patent: Yes Stable Respiratory Function: Yes Nausea/Vomiting: No Temp > 96.8F: Yes Pain Manageable: Yes Adequeate Hydration: Yes Anesthesia Complications: No
[2020-10-01] MEDS: INSULIN GLARGINE 100 UNITS/ML SUB-Q SCH (21:44)
[2020-10-01] MEDS: VANCOMYCIN 2,000 MG in SODIUM CHLORIDE 0.9% 500 ML 500 ML IV SCH (23:47)
[2020-10-02] MEDS: HYDROmorphone 1 MG/1 ML INJ IV PRN ×5 (01:22→19:24)
[2020-10-02] MEDS: CEFEPIME/NS 2 GM/100 ML 2 GM/100 ML BAG IV SCH ×3 (05:55→22:13)
[2020-10-02] MEDS: HEPARIN 5,000 UNIT/1 ML VIAL SUB-Q SCH ×3 (05:57→22:14)
[2020-10-02] MEDS: SODIUM CHLORIDE 0.9% 1000 ML 1,000 ML IV SCH (06:11)
[2020-10-02] MEDS: metroNIDAZOLE/NS 500 MG/100 ML 500 MG/100 ML BAG IV SCH ×2 (06:15→14:01)
--- NOTE | 2020-10-02 08:30 | Progress Note ---
Assessment and Plan - Patient Problems (1) Pyogenic ulcer of right calf with fat layer exposed Current Visit: Yes Status: Acute (2) Abscess of right lower extremity Current Visit: Yes Status: Acute Plan to address problem: 1) Pt can be discharged once pt or family can do wound care. 2) F/u in Wound Clinic in 2 weeks. Subjective Date of service: 10/02/20 Patient Reports: Positive: no new complaints Objective Vital Signs - 12hr 10/01/20 10/02/20 10/02/20 23:36 00:00 03:51 Temperature 97.6 F 97.9 F Pulse Rate 79 70 Respiratory 18 18 Rate Blood Pressure 128/63 Blood Pressure 127/57 [Left] O2 Sat by Pulse 94 98 96 Oximetry - Labs 10/01/20 04:44 10/01/20 04:44
[2020-10-02] MEDS: INSULIN REGULAR, HUMAN 100 UNITS/1 ML SUB-Q SCH ×4 (10:03→22:17)
[2020-10-02] MEDS: VANCOMYCIN 2,000 MG in SODIUM CHLORIDE 0.9% 500 ML 500 ML IV SCH (10:04)
--- NOTE | 2020-10-02 13:11 | Progress Note ---
Assessment and Plan Assessment and plan: 35-year-old -[place] male with known history of diabetes mellitus presenting to the emergency room today with complaints of right leg extremity pain and swelling. Patient has known history of lymphedema since he was 19 years old. He has cellulitis on the right lower extremity and at this month, started on antibiotics for failed outpatient treatment. Was later seen at [facility] and admitted for abscess drainage. Patient states that the drain in his right lower extremity has since stopped walking and he has been having increasing swelling and pain in the right lower extremity. He is currently on Bactrim daily. He denies any fever or chills, no chest pain or shortness of breath, no nausea vomiting, no abdominal pain. Patient denies any sick contacts and no recent travel. Denies any contact with anyone with COVID-19. Work-up in the emergency room today, x-ray of the right ankle shows marked soft tissue swelling with small amount of gas within the anterior subcutaneous soft tissue. Multiple ill-defined probable dystrophic calcification within the distal calf. No ankle effusion or cortical destruction to suggest septic arthritis/osteomyelitis. 10/01: Patient is status post I&D today. MRI was done which did not reveal any Osteomyelitis but showed gas gangrene of right lower extremity with subcutaneous abscess. Antibiotics has been switched to cefepime, vancomycin, and Flagyl while we await cultures from the OR. Will adjust insulin for tight glycemic control. Continue wound care management 10/02: Patient noted to pyogenic also the right calf with fat layer exposed underwent debridement yesterday. Has been cleared by surgery for discharge and follow-up in wound care clinic but following discussion with the ID would like to give 24 more hours to see if any growth of the wound culture subsequently patient can be discharged tomorrow on oral antibiotics. ID physician, call tomorrow for recommendation follow antibiotics. (1) Abscess of right lower extremity Current Visit: Yes Status: Acute Plan to address problem: Patient has drain in place. We will continue on empiric IV antibiotics. (2) Cellulitis Current Visit: Yes Status: Acute Qualifiers: Site of cellulitis: extremity Site of cellulitis of extremity: lower extremity Laterality: right Qualified Code(s): L03.115 - Cellulitis of right lower limb Plan to address problem: Patient placed on empiric IV antibiotics. We will consult infectious disease for evaluation. (3) Diabetes mellitus (4) DVT prophylaxis Current Visit: No Status: Acute Plan to address problem: Patient presents subcutaneous heparin. (5) Full code status Current Visit: No Status: Acute Plan to address problem: Patient is full code History Interval history: Patient seen and examined no distress at this time. Continue current management status post debridement yesterday Hospitalist Physical - Physical exam Narrative exam: General appearance: Present: no acute distress, well-nourished, obese - EENT Eyes: Present: PERRL, EOM intact. Absent: scleral icterus ENT: hearing intact, clear oral mucosa, dentition normal - Neck Neck: Present: supple, normal ROM - Respiratory Respiratory effort: normal Respiratory: bilateral: CTA - Cardiovascular Rhythm: regular Heart Sounds: Present: S1 & S2, systolic murmur. Absent: gallop, diastolic murmur, rub, click - Extremities Extremities: no ischemia, pulses intact, pulses symmetrical, No edema, normal temperature, normal color, Full ROM Extremity abnormal: edema (Lymphedema right lower extremity, dressing in place.) Peripheral Pulses: within normal limits - Abdominal General gastrointestinal: Present: soft, non-tender, non-distended, normal bowel sounds. Absent: mass - Integumentary Integumentary: Present: clear, warm, dry. Absent: rash - Musculoskeletal Musculoskeletal: strength equal bilaterally - Psychiatric Psychiatric: appropriate mood/affect, intact judgment & insight, memory intact, cooperative - Neurologic Neurologic: CNII-XII intact, no focal deficits, moves all extremities - Constitutional Vitals: Temp Pulse Resp BP Pulse Ox 98.4 F 74 18 134/69 99 10/02/20 08:00 10/02/20 08:00 10/02/20 10:00 10/02/20 08:00 10/02/20 10:00 General appearance: Present: no acute distress, well-nourished, obese Results - Labs CBC & Chem 7: 10/01/20 04:44 10/01/20 04:44 Labs: Laboratory Last Values WBC 5.5 K/mm3 (4.5-11.0) 10/01/20 04:44 RBC 3.85 M/mm3 (3.65-5.03) 10/01/20 04:44 Hgb 12.9 gm/dl (11.8-15.2) 10/01/20 04:44 Hct 35.4 % (35.5-45.6) L D 10/01/20 04:44 MCV 92 fl (84-94) 10/01/20 04:44 MCH 33 pg (28-32) H 10/01/20 04:44 MCHC 36 % (32-34) H 10/01/20 04:44 RDW 12.8 % (13.2-15.2) L 10/01/20 04:44 Plt Count 449 K/mm3 (140-440) H 10/01/20 04:44 Lymph % (Auto) 35.9 % (13.4-35.0) H 10/01/20 04:44 [place] % (Auto) 7.9 % (0.0-7.3) H 10/01/20 04:44 Eos % (Auto) 1.2 % (0.0-4.3) 10/01/20 04:44 Baso % (Auto) 0.3 % (0.0-1.8) 10/01/20 04:44 Lymph # (Auto) 2.0 K/mm3 (1.2-5.4) 10/01/20 04:44 [place] # (Auto) 0.4 K/mm3 (0.0-0.8) 10/01/20 04:44 Eos # (Auto) 0.1 K/mm3 (0.0-0.4) 10/01/20 04:44 Baso # (Auto) 0.0 K/mm3 (0.0-0.1) 10/01/20 04:44 Seg Neutrophils % 54.7 % (40.0-70.0) 10/01/20 04:44 Seg Neutrophils # 3.0 K/mm3 (1.8-7.7) 10/01/20 04:44 Sodium 133 mmol/L (137-145) L 10/01/20 04:44 Potassium 4.1 mmol/L (3.6-5.0) 10/01/20 04:44 Chloride 99.1 mmol/L (98-107) 10/01/20 04:44 Carbon Dioxide 26 mmol/L (22-30) 10/01/20 04:44 Anion Gap 12 mmol/L 10/01/20 04:44 BUN 11 mg/dL (9-20) 10/01/20 04:44 Creatinine 0.6 mg/dL (0.8-1.3) L 10/01/20 04:44 Estimated GFR > 60 ml/min 10/01/20 04:44 BUN/Creatinine Ratio 18 % 10/01/20 04:44 Glucose 298 mg/dL (75-100) H 10/01/20 04:44 POC Glucose 230 mg/dL (70-105) H 10/02/20 11:59 Lactic Acid 1.70 mmol/L (0.7-2.0) 09/29/20 16:47 Calcium 9.1 mg/dL (8.4-10.2) 10/01/20 04:44 Total Bilirubin 0.30 mg/dL (0.1-1.2) 09/29/20 16:47 AST 16 units/L (5-40) 09/29/20 16:47 ALT 31 units/L (7-56) 09/29/20 16:47 Alkaline Phosphatase 138 units/L (35-129) H 09/29/20 16:47 Total Protein 8.5 g/dL (6.3-8.2) H 09/29/20 16:47 Albumin 3.9 g/dL (3.9-5) 09/29/20 16:47 Albumin/Globulin Ratio 0.8 % 09/29/20 16:47 Microbiology: Microbiology 10/01/20 Unknown Leg - Right Surgical Culture - Preliminary NO GROWTH AFTER 24 HOURS 09/29/20 16:47 Peripheral/Venous Blood Culture - Preliminary NO GROWTH AFTER 48 HOURS 09/29/20 16:47 Peripheral/Venous Blood Culture - Preliminary NO GROWTH AFTER 48 HOURS Active Medications - Current Medications Current Medications: Generic Name Dose Route Start Last Admin Trade Name Freq PRN Reason Stop Dose Admin Acetaminophen 650 mg 09/30/20 01:15 Acetaminophen 325 Mg Tab PO Q4H PRN Pain MILD(1-3)/Fever >100.5/PACKER Dextrose 50 ml 09/30/20 01:15 Dextrose 50% In Water (25gm) 50 Ml Syringe IV Q30MIN PRN Hypoglycemia Protocol Heparin Sodium (Porcine) 5,000 unit 09/30/20 06:00 10/02/20 05:57 Heparin 5,000 Unit/1 Ml Vial SUB-Q 5,000 unit Q8HR KELLI Administration Hydromorphone HCl 1 mg 09/30/20 05:38 10/02/20 10:28 Hydromorphone 1 Mg/1 Ml Inj IV 1 mg Q4H PRN Administration Pain , Severe (7-10) Hydromorphone HCl 0.5 mg 10/01/20 10:54 10/01/20 13:16 Hydromorphone 1 Mg/1 Ml Inj IV 0.5 mg Q10MIN PRN Administration Pain , Severe (7-10) Sodium Chloride 1,000 mls @ 125 mls/hr 09/30/20 01:15 10/02/20 06:11 Nacl 0.9% 1000 Ml IV 125 mls/hr DIRECT KELLI Administration Cefepime HCl 2 gm in 100 mls @ 200 mls/hr 10/01/20 14:00 10/02/20 05:55 Cefepime/Ns 2 Gm/100 Ml IV 200 mls/hr Q8HR KELLI Administration Protocol Metronidazole 500 mg in 100 mls @ 100 mls/hr 10/01/20 14:00 10/02/20 06:15 Flagyl 500 Mg/100 Ml IV 100 mls/hr Q8H KELLI Administration Protocol Vancomycin HCl 2,000 mg/ 540 mls @ 360 mls/hr 10/01/20 23:00 10/02/20 10:04 Sodium Chloride IV 360 mls/hr Q12H KELLI Administration Insulin Glargine 25 units 10/01/20 22:00 10/01/20 21:44 Insulin Glargine 100 Units/Ml SUB-Q 25 units QHS KELLI Administration Insulin Human Regular 0 units 09/30/20 07:30 10/02/20 10:03 Insulin Regular, Human 100 Units/1 Ml SUB-Q 3 units ACHS KELLI Administration Protocol Magnesium Hydroxide 30 ml 09/30/20 01:15 Magnesium Hydroxide (Mom) Oral Liqd Udc PO Q4H PRN Constipation Ondansetron HCl 4 mg 09/30/20 01:15 Ondansetron 4 Mg/2 Ml Inj IV Q8H PRN Nausea And Vomiting Sodium Chloride 10 ml 09/30/20 10:00 10/02/20 10:04 Sodium Chloride 0.9% 10 Ml Flush Syringe IV 10 ml BID KELLI Administration Sodium Chloride 10 ml 09/30/20 01:15 Sodium Chloride 0.9% 10 Ml Flush Syringe IV PRN PRN LINE FLUSH Sodium Hypochlorite 1 applic 10/01/20 12:46 10/02/20 10:28 Sodium Hypochlorite, Dakin's Full Strength (0.5%) 473 Ml Topical Soln TP 10 ml Q12H PRN Administration Wound Care
[2020-10-02] MEDS: INSULIN GLARGINE 100 UNITS/ML SUB-Q SCH (22:17)
[2020-10-03] MEDS: HYDROmorphone 1 MG/1 ML INJ IV PRN ×3 (00:20→12:01)
[2020-10-03] MEDS: VANCOMYCIN 2,000 MG in SODIUM CHLORIDE 0.9% 500 ML 500 ML IV SCH (00:21)
[2020-10-03] MEDS: metroNIDAZOLE/NS 500 MG/100 ML 500 MG/100 ML BAG IV SCH ×2 (00:21→05:43)
[2020-10-03] MEDS: HEPARIN 5,000 UNIT/1 ML VIAL SUB-Q SCH (05:42)
[2020-10-03] MEDS: CEFEPIME/NS 2 GM/100 ML 2 GM/100 ML BAG IV SCH (05:42)
[2020-10-03 08:48] VITALS: BP 154/85
[2020-10-03] MEDS: INSULIN REGULAR, HUMAN 100 UNITS/1 ML SUB-Q SCH ×2 (09:01→13:05)
[2020-10-03 09:53] LABS: Blood Urea Nitrogen 7 mg/dL (9-20); Calcium 8.5 mg/dL (8.4-10.2); Hemolysis Index 12
[2020-10-03 09:55] LABS: BUN/Creatinine Ratio 18
--- NOTE | 2020-10-03 10:17 | Discharge Summary ---
Providers - Providers Date of Admission: 09/30/20 08:20 Date of discharge: 10/03/20 Attending physician: HAYDEE HERNANDEZ MD 09/30/20 01:15 Consult to Dietitian/Nutrition [CONS] Routine Physician Instructions: Reason For Exam: Reason for Consult: Diet education Consult to Physician [CONS] Routine Comment: Consulting Provider: ALEXANDER MCCARTHY Physician Instructions: Reason For Exam: Cellulitis, Osteomyelitis Right lower Extremity 09/30/20 07:30 Consult to Physician [CONS] Routine Comment: Consulting Provider: ROSY STERN Physician Instructions: Reason For Exam: right ankle osteo 09/30/20 07:31 Occupational Therapy Evaluate and Treat [CONS] Routine Comment: Reason For Exam: debility, right ankle osteo Physical Therapy Evaluation and Treat [CONS] Routine Comment: Reason For Exam: debility, right ankle osteo 09/30/20 07:34 Consult to Physician [CONS] Routine Comment: Consulting Provider: ROSY STERN Physician Instructions: Reason For Exam: Right lower extremity abscess/cellulitis 09/30/20 07:35 Consult to Wound/ET Nurse [CONS] Routine Reason For Exam: wound eval- right lower exrtremity Primary care physician: DRESS OPERATOR Hospitalization Condition: Fair Hospital course: 35-year-old -[place] male with known history of diabetes mellitus presenting to the emergency room today with complaints of right leg extremity pain and swelling. Patient has known history of lymphedema since he was 19 years old. He has cellulitis on the right lower extremity and at this month, started on antibiotics for failed outpatient treatment. Was later seen at [facility] and admitted for abscess drainage. Patient states that the drain in his right lower extremity has since stopped walking and he has been having increasing swelling and pain in the right lower extremity. He is currently on Bactrim daily. He denies any fever or chills, no chest pain or shortness of breath, no nausea vomiting, no abdominal pain. Patient denies any sick contacts and no recent travel. Denies any contact with anyone with COVID-19. Work-up in the emergency room today, x-ray of the right ankle shows marked soft tissue swelling with small amount of gas within the anterior subcutaneous soft tissue. Multiple ill-defined probable dystrophic calcification within the distal calf. No ankle effusion or cortical destruction to suggest septic arthritis/osteomyelitis. 10/01: Patient is status post I&D today. MRI was done which did not reveal any Osteomyelitis but showed gas gangrene of right lower extremity with subcutaneous abscess. Antibiotics has been switched to cefepime, vancomycin, and Flagyl while we await cultures from the OR. Will adjust insulin for tight glycemic control. Continue wound care management 10/02: Patient noted to pyogenic also the right calf with fat layer exposed underwent debridement yesterday. Has been cleared by surgery for discharge and follow-up in wound care clinic but following discussion with the ID would like to give 24 more hours to see if any growth of the wound culture subsequently patient can be discharged tomorrow on oral antibiotics. ID physician, call tomorrow for recommendation follow antibiotics. 10/03/2020. Patient is doing good. Patient patient wants to go home. Wound culture grow Riata polymorphonuclear cells seen no organisms seen. Case discussed with Dr. Dominique gaines infectious disease. Recommend to put on Keflex 1 g p.o. 4 times daily for 10 days and doxycycline 100 mg p.o. twice jacquelyn y for 10 days. Patient will follow up with surgeon as well as infectious disease in 10 days. We will continue the wound care. Condition at the time of discharge is stable (1) Abscess of right lower extremity Current Visit: Yes Status: Acute Plan to address problem: Patient has drain in place. We will continue on empiric IV antibiotics. (2) Cellulitis Current Visit: Yes Status: Acute Qualifiers: Site of cellulitis: extremity Site of cellulitis of extremity: lower extremity Laterality: right Qualified Code(s): L03.115 - Cellulitis of right lower limb Plan to address problem: Patient placed on empiric IV antibiotics. We will consult infectious disease for evaluation. (3) Diabetes mellitus (4) DVT prophylaxis Current Visit: No Status: Acute Plan to address problem: Patient presents subcutaneous heparin. (5) Full code status Current Visit: No Status: Acute Plan to address problem: Patient is full code Disposition: 01 HOME / SELF CARE / HOMELESS Final Discharge Diagnosis (Prints w/discharge instructions): Abscess and cellulitis of the right lower extremity status post I&D - Discharge Diagnoses (1) Abscess of right lower extremity Status: Acute Comment: 35-year-old -[place] male with known history of diabetes mellitus presenting to the emergency room today with complaints of right leg extremity pain and swelling. Patient has known history of lymphedema since he was 19 years old. He has cellulitis on the right lower extremity and at this month, started on antibiotics for failed outpatient treatment. Was later seen at [facility] and admitted for abscess drainage. Patient states that the drain in his right lower extremity has since stopped walking and he has been having increasing swelling and pain in the right lower extremity. He is currently on Bactrim daily. He denies any fever or chills, no chest pain or shortness of breath, no nausea vomiting, no abdominal pain. Patient denies any sick contacts and no recent travel. Denies any contact with anyone with COVID-19. Work-up in the emergency room today, x-ray of the right ankle shows marked soft tissue swelling with small amount of gas within the anterior subcutaneous soft tissue. Multiple ill-defined probable dystrophic calcification within the distal calf. No ankle effusion or cortical destruction to suggest septic arthritis/osteomyelitis. 10/01: Patient is status post I&D today. MRI was done which did not reveal any Osteomyelitis but showed gas gangrene of right lower extremity with subcutaneous abscess. Antibiotics has been switched to cefepime, vancomycin, and Flagyl while we await cultures from the OR. Will adjust insulin for tight glycemic control. Continue wound care management 10/02: Patient noted to pyogenic also the right calf with fat layer exposed underwent debridement yesterday. Has been cleared by surgery for discharge and follow-up in wound care clinic but following discussion with the ID would like to give 24 more hours to see if any growth of the wound culture subsequently patient can be discharged tomorrow on oral antibiotics. ID physician, call tomorrow for recommendation follow antibiotics. 10/03/2020. Patient is doing good. Patient patient wants to go home. Wound culture grow Riata polymorphonuclear cells seen no organisms seen. Case discussed with Dr. Dominique gaines infectious disease. Recommend to put on Keflex 1 g p.o. 4 times daily for 10 days and doxycycline 100 mg p.o. twice daily for 10 days. Patient will follow up with surgeon as well as infectious disease in 10 days. We will continue the wound care. Condition at the time of discharge is stable (1) Abscess of right lower extremity Current Visit: Yes Status: Acute Plan to address problem: Patient has drain in place. We will continue on empiric IV antibiotics. (2) Cellulitis Current Visit: Yes Status: Acute Qualifiers: Site of cellulitis: extremity Site of cellulitis of extremity: lower extremity Laterality: right Qualified Code(s): L03.115 - Cellulitis of right lower limb Plan to address problem: Patient placed on empiric IV antibiotics. We will consult infectious disease for evaluation. (3) Diabetes mellitus (4) DVT prophylaxis Current Visit: No Status: Acute Plan to address problem: Patient presents subcutaneous heparin. (5) Full code status Current Visit: No Status: Acute Plan to address problem: Patient is full code (2) Cellulitis Status: Acute Qualifiers: Site of cellulitis: extremity Site of cellulitis of extremity: lower extremity Laterality: right Qualified Code(s): L03.115 - Cellulitis of right lower limb (3) Hyperglycemia Status: Acute Core Measure Documentation - Palliative Care Palliative Care/ Comfort Measures: Not Applicable - Core Measures Any of the following diagnoses?: none Exam - Constitutional Vitals: Temp Pulse Resp BP Pulse Ox 97.7 F 69 18 154/85 98 10/03/20 07:54 10/03/20 07:54 10/03/20 07:54 10/03/20 07:54 10/03/20 07:54 General appearance: Present: no acute distress, well-nourished - EENT Eyes: Present: PERRL ENT: hearing intact, clear oral mucosa - Neck Neck: Present: supple, normal ROM - Respiratory Respiratory effort: normal Respiratory: bilateral: CTA - Cardiovascular Heart Sounds: Present: S1 & S2. Absent: rub, click - Extremities Extremities: pulses symmetrical, No edema Peripheral Pulses: within normal limits - Abdominal General gastrointestinal: Present: soft, non-tender, non-distended, normal bowel sounds Male genitourinary: Present: normal - Integumentary Integumentary: Present: clear, warm, dry - Musculoskeletal Musculoskeletal: gait normal, strength equal bilaterally - Psychiatric Psychiatric: appropriate mood/affect, intact judgment & insight - Neurologic Neurologic: CNII-XII intact, moves all extremities Plan Diet: diabetic Wound: keep clean and dry, change dressing, per your surgeon's advice, per wound nurse instructions Special Instructions: other (Follow-up with wound care. Surgeon and infectious disease in 10 days) Follow up with: CORINNA BELTRÁN MD [Primary Care Provider] - 7 Days ALEXANDER MCCARTHY MD [Staff Physician] - 7 Days GIO ERICKSON MD [Staff Physician] - 7 Days Prescriptions: Doxycycline Hyclate [Doxycycline Hyclate TAB] 100 mg PO Q12HR 10 Days tab cephALEXin [Keflex] 1,000 mg PO Q6HR 10 Days #60 capsule
[2020-10-03] MEDS ORDERED: VANCOMYCIN 1,750 MG in SODIUM CHLORIDE 0.9% 500 ML 500 ML IV SCH (14:00)
== END 2020-10-03 13:00 | disposition home or self-care (01) | DRG 571 ==
LOC: ED 12:35 → 3A 23:53 → OBSVTOIN 09-30 08:20 → 4A 09-30 23:27
PROVIDERS: ADMIT Internal Medicine Geriatric Medicine; ATTEND Hospitalist
PROC: 0JBN0ZZ Excision of Right Lower Leg Subcutaneous Tissue and Fascia, Open Approach (ICD-10-PCS; principal; 2020-10-01)
PROC: 0J9N0ZZ Drainage of Right Lower Leg Subcutaneous Tissue and Fascia, Open Approach (ICD-10-PCS; 2020-10-01)
DX: L03.115 Cellulitis of right lower limb (principal); Z68.41 Body mass index [BMI] 40.0-44.9, adult; L97.212 Non-pressure chronic ulcer of right calf with fat layer exposed; R65.10 Systemic inflammatory response syndrome (SIRS) of non-infectious origin without acute organ dysfunction; L02.415 Cutaneous abscess of right lower limb; E66.01 Morbid (severe) obesity due to excess calories; Z88.6 Allergy status to analgesic agent; Z88.8 Allergy status to other drugs, medicaments and biological substances; I10 Essential (primary) hypertension; K21.9 Gastro-esophageal reflux disease without esophagitis; F17.200 Nicotine dependence, unspecified, uncomplicated; E11.65 Type 2 diabetes mellitus with hyperglycemia; I89.0 Lymphedema, not elsewhere classified
CPT/HCPCS: 36415; 80048; 80053; 80202; 82140; 82962; 85025; 87040; 87075; 87076; 87116; 87186; 99406; G0378; A9575; J0690; J0692; J1170; J1644; J1815; J2250; J2405; J2543; J2704; J3010; J3370; J7030; J7040